=== PATIENT | female | born 1985 | race Caucasian/White ===

== ENCOUNTER 2020-09-03 07:53 | Outpatient (REF) | payer MEDICAID, SELFPAY ==
[2020-09-10 06:16] LABS: HPV mRNA E6/E7 Not Detected (Not Detected)
== END 2020-09-03 07:54 | disposition home or self-care (01) ==
LOC: HO.LNP 07:53
PROVIDERS: Visit Provider Advanced Practice Midwife
DX: Z01.419 Encounter for gynecological examination (general) (routine) without abnormal findings (principal); Z11.51 Encounter for screening for human papillomavirus (HPV); E28.2 Polycystic ovarian syndrome
CPT/HCPCS: 87624; 87625; 88142; 99395

== ENCOUNTER 2020-10-26 08:52 | Outpatient (REF) | payer MEDICAID, SELFPAY ==
[2020-10-26 09:26] LABS: Hematocrit 37.6 % (37-47); Hemoglobin 12.3 g/dl (12.0-16.0); Mean Corpuscular HGB Conc 32.7 g/dl (31.0-35.0); Mean Corpuscular Hemoglobin 29.9 pg (27.0-33.0); Mean Corpuscular Volume 91.3 fL (80-98); Mean Platelet Volume 11.4 fL (9.4-12.3); Platelet Count 282 X10*3/uL (160-400); Red Blood Count 4.12 X10*6/uL (4.20-5.50); Red Cell Distribution Width 13.1 % (11.0-16.0); White Blood Count 9.3 X10*3/uL (4.8-10.8)
[2020-10-26 09:34] LABS: Estimated Average Glucose 114 mg/dL; Hemoglobin A1c % 5.6 %
[2020-10-26 09:43] LABS: Alanine Aminotransferase 21 U/L (0-31); Alkaline Phosphatase 50 U/L (39-117); Anion Gap 12 (12-20); Aspartate Amino Transferase 19 U/L (5-31); Bilirubin Total 0.5 mg/dL (0.0-1.0); Blood Urea Nitrogen 11 mg/dL (9-16); Calcium 8.4 mg/dL (8.4-10.2); Carbon Dioxide 25 mmol/L (22-29); Chloride 104 mmol/L (96-108); Cholesterol 182 mg/dL; Estimated Glomerular Filt Rate > 60; Glucose Fasting 97 mg/dL (60-99); HDL Cholesterol 39 mg/dL; LDL Cholesterol Calculated 99 mg/dl; Potassium 4.3 mmol/l (3.3-5.1); Sodium 137 mmol/L (135-145); Total Protein 7.1 g/dL (6.5-8.0); Triglycerides 220 mg/dL
[2020-10-26 09:50] LABS: Creatinine Urine 172.74 mg/dL; Microalbum/Creatinine Ratio Ur 10.9 ug/mg cr
[2020-10-26 10:03] LABS: TSH reflex Free T4 0.65 mIU/mL (0.32-4.0)
[2020-10-28 20:09] LABS: Insulin Level Total 23.2 uIU/mL
== END 2020-10-26 08:53 | disposition home or self-care (01) ==
LOC: HO.LAB 08:52
PROVIDERS: PCP Nurse Practitioner Family; Visit Provider Nurse Practitioner Family
DX: E16.1 Other hypoglycemia (principal); E28.2 Polycystic ovarian syndrome; I10 Essential (primary) hypertension; J45.30 Mild persistent asthma, uncomplicated; R73.03 Prediabetes
CPT/HCPCS: 36415; 80053; 80061; 82043; 83036; 83525; 84443; 85027

== ENCOUNTER → 2021-10-06 13:18 | Outpatient (BNVA) | payer MEDICAID, SELFPAY | PROVIDERS: PCP Nurse Practitioner Family; Visit Provider Physician Assistant | DX: E66.9 Obesity, unspecified (principal); R73.03 Prediabetes; G35 Multiple sclerosis; G47.30 Sleep apnea, unspecified; R79.89 Other specified abnormal findings of blood chemistry; I10 Essential (primary) hypertension; J45.909 Unspecified asthma, uncomplicated; E28.2 Polycystic ovarian syndrome | CPT/HCPCS: 99202 ==

== ENCOUNTER → 2021-10-16 08:13 | Outpatient (BNVA) | payer MEDICAID, SELFPAY | PROVIDERS: Visit Provider Dietitian, Registered | DX: E66.01 Morbid (severe) obesity due to excess calories (principal) | CPT/HCPCS: 97802 ==

== ENCOUNTER → 2021-11-05 08:09 | Outpatient (BNVA) | payer MEDICAID, SELFPAY | PROVIDERS: Visit Provider Surgery ==

== ENCOUNTER → 2021-11-18 08:14 | Outpatient (BNVA) | payer MEDICAID, SELFPAY | PROVIDERS: PCP Nurse Practitioner Family; Referring Provider Physician Assistant; Visit Provider Dietitian, Registered ==

== ENCOUNTER 2021-11-27 09:04 | Outpatient (REF) | payer MEDICAID, SELFPAY ==
--- NOTE | ~2021-11-27 | US_ITS ---
EXAMINATION: US COMPLETE ABDOMEN WITH LIVER ELASTOGRAPHY CLINICAL INFORMATION: Obesity. COMPARISON: None. TECHNIQUE: Real-time imaging of the abdominal viscera. Noninvasive ultrasound liver fibrosis assessment is performed using Delvis ElastPQ point quantification shear wave elastography (pSWE) with a C5-2 MHz transducer. Multiple elastography samples are obtained. FINDINGS: PANCREAS: Normal. The visualized pancreatic head and body are normal in appearance. The remainder of the pancreas is obscured from visualization by the overlying bowel gas. ABDOMINAL AORTA: The middle and distal aortic segments are normal in caliber. Proximal aorta is obscured from visualization by overlying bowel gas. INFERIOR VENA CAVA: Visualized portions are normal. LIVER: The liver demonstrates diffusely increased echogenicity. No suspicious focal parenchymal lesions or intrahepatic biliary duct dilatation. Normal hepatic capsular contour. The right lobe measures 13 point cm in length. The left lobe measures 12.9 cm in length. Portal flow is hepatopedal Shear wave liver elastography median stiffness is 1.58 m/s (reference: normal median stiffness is 1.3 m/s or less). IQR/median stiffness to assess sampling precision is 0.11 (reference: good quality data set is IQR/median stiffness of 0.15 or less). GALLBLADDER: Normal. The gallbladder is physiologically distended without evidence of stones, sludge, polyps, wall thickening or pericholecystic fluid. COMMON BILE DUCT: Not identified. RIGHT KIDNEY: Normal. No hydronephrosis. No renal calculi or focal parenchymal lesions. The kidney measures 11.2 cm in maximum dimension. LEFT KIDNEY: Normal. No hydronephrosis. No renal calculi or focal parenchymal lesions. The kidney measures 12.1 cm in maximum dimension. SPLEEN: Normal. The spleen measures 9.7 cm in maximum dimension. FREE FLUID: None. US/US abdomen comp w elastography IMPRESSION: 1. Findings suspicious for diffuse hepatic steatosis. 2. No cholelithiasis. 2. Liver elastography: In the absence of other known clinical signs, measurements rule out compensated advanced chronic liver disease. If there are known clinical signs, further testing may be needed for confirmation. REFERENCE: Society of Radiologists in Ultrasound Liver Stiffness Thresholds (2020): LIVER STIFFNESS THRESHOLDS: *Liver Stiffness equal or less than 1.3 m/s: High probability of being normal. *Liver Stiffness less than 1.7 m/s: In the absence of other known clinical signs, rules out compensated advanced chronic liver disease. *Liver Stiffness 1.7-2.1 m/s: Suggestive of compensated advanced chronic liver disease but need further test for confirmation. *Liver Stiffness over 2.1 m/s: Rules in compensated advanced chronic liver disease. *Liver Stiffness over 2.4 m/s: Suggestive of clinically significant portal hypertension. QUALITY OF DATA SET: *IQR/Median value equal or less than 0.15 implies a quality data set. *IQR/Median value over 0.15 implies a poor quality data set. SIGNIFICANT CHANGE FROM PRIOR EXAM: Significant change if liver stiffness measurement is 10% or greater from prior exam. OTHER CONSIDERATIONS: The stage of liver fibrosis may be overestimated in the setting of acute hepatitis, liver inflammation, elevated liver function tests, hepatic vascular congestion, obstructive cholestasis, non-fasting state, and infiltrative diseases such as amyloidosis and lymphoma. In some patients with NAFLD, the liver stiffness thresholds for compensated advanced chronic liver disease may be lower. In causes other than viral hepatitis and NAFLD, liver stiffness thresholds are not well established.
--- NOTE | ~2021-11-27 | XR_ITS ---
EXAMINATION: XR CHEST CLINICAL INFORMATION: Obesity. Unspecified. COMPARISON: None TECHNIQUE: 2 views of the chest were obtained. FINDINGS: Normal appearance of the cardiomediastinal structures. No effusions or pneumothoraces. Lungs clear. Normal pattern of pulmonary vasculature. Oral contrast agent identified within the incidentally visualized stomach, duodenum and jejunum. XR/XR chest 2V IMPRESSION: *No cardiopulmonary abnormalities. Lungs clear. *Partially visualized oral contrast agent within the upper gastrointestinal system.
--- NOTE | ~2021-11-27 | FL_ITS ---
EXAMINATION: FL GI SERIES CLINICAL INFORMATION: Obesity. COMPARISON: None TECHNIQUE: Air-contrast upper GI examination. FINDINGS: There is normal apposition of the vocal cords while saying E . There is normal elevation of the soft palate while saying candy . The patient swallowed thin and thick barium without difficulty. There is no evidence of nasopharyngeal reflux or tracheal aspiration. There is normal esophageal motility without evidence of persistent stricture or mucosal abnormality. No hiatal hernia is seen. There is a patulous GE junction with spontaneous reflux within the distal third of the esophagus identified which clears rapidly. The stomach demonstrates normal distensibility without abnormal mass or ulceration. There was no delay in gastric emptying. The duodenal bulb and sweep appeared unremarkable. FLUOROSCOPY TIME: 1.3 minutes DOSE AREA PRODUCT: 9.741 Gy-cm2 (connolly-centimeter squared) FL/FL upper GI series IMPRESSION: Mild transient gastroesophageal reflux. Otherwise unremarkable air-contrast upper GI examination.
[2021-11-27 10:42] LABS: MANUAL DIFF FLAG NO
[2021-11-27 11:23] LABS: Basophils Absolute Auto 0.1 X10*3/uL (0.0-0.2); Basophils Percent Auto 1.1 % (0-2); Eosinophils Absolute Auto 0.1 X10*3/uL (0.0-0.4); Eosinophils Percent Auto 1.7 % (0-4); Hematocrit 39.2 % (37.0-47.0); Hemoglobin 13.1 g/dl (12.0-16.0); Imm Gran Abs Auto 0.03 X10*3/uL (0.00-0.03); Imm Gran Pct Auto 0.4 % (0.0-0.4); Lymphocytes Absolute Auto 3.1 X10*3/uL (1.2-4.9); Lymphocytes Percent Auto 40.9 % (20-40); Mean Corpuscular HGB Conc 33.4 g/dl (31.0-35.0); Mean Corpuscular Hemoglobin 29.4 pg (27.0-33.0); Mean Corpuscular Volume 87.9 fL (80.0-98.0); Mean Platelet Volume 11.6 fL (9.4-12.3); Monocytes Absolute Auto 0.5 X10*3/uL (0.1-1.2); Monocytes Percent Auto 6.1 % (2-11); Neutrophils Absolute Auto 3.7 x10*3/uL (2.0-8.3); Neutrophils Percent Auto 49.8 % (45-73); Platelet Count 309 X10*3/uL (160-400); Red Blood Count 4.46 X10*6/uL (4.20-5.50); Red Cell Distribution Width 13.4 % (11.0-16.0); White Blood Count 7.5 X10*3/uL (4.8-10.8)
[2021-11-27 11:48] LABS: Estimated Average Glucose 160 mg/dL; Hemoglobin A1c % 7.2 %
[2021-11-27 12:06] LABS: Alanine Aminotransferase 52 U/L (0-31); Albumin Level 4.2 g/dL (3.5-5.0); Alkaline Phosphatase 67 U/L (39-117); Anion Gap 11 (12-20); Aspartate Amino Transferase 43 U/L (5-31); Bilirubin Total 0.5 mg/dL (0.0-1.0); Blood Urea Nitrogen 12 mg/dL (9-16); C Reactive Protein 0.52 mg/dL (< or = 0.50); Calcium 9.3 mg/dL (8.4-10.2); Carbon Dioxide 27 mmol/L (22-29); Chloride 104 mmol/L (96-108); Cholesterol 234 mg/dL; Estimated Glomerular Filt Rate > 60; Glucose Random 150 mg/dL (60-115); HDL Cholesterol 31 mg/dL; Iron 62 mcg/dL (30-160); LDL Cholesterol Calculated 140 mg/dl; Percent Iron Saturation 15 % (15-50); Potassium 4.5 mmol/L (3.3-5.1); Sodium 137 mmol/L (135-145); Total Iron Binding Capacity 403 mcg/dL (228-428); Total Protein 7.9 g/dL (6.5-8.0); Triglycerides 316 mg/dL; Unsaturated Iron Binding 341 ug/dL
[2021-11-27 12:07] LABS: Ferritin 66 ng/mL (10-122); Insulin 39 uU/mL (2-29); TSH reflex Free T4 0.57 uIU/mL (0.32-4.0); Vitamin D 25-OH Total 12.3 ng/mL (>30)
[2021-11-27 12:25] LABS: Folate 11.8 ng/mL (> or = 4.0); Vitamin B12 424 pg/mL (200-900)
[2021-11-28 14:16] LABS: H Pylori Breath Test Positive (Negative)
[2021-12-01 13:31] LABS: Calcium (PTHI) 9.7 mg/dL (8.6-10.2); PTHI 54 pg/mL (14-64)
[2021-12-02 01:20] LABS: Zinc 80 mcg/dL (60-130)
[2021-12-02 16:01] LABS: Vitamin B1 11 nmol/L (8-30)
[2021-12-02 19:17] LABS: Vitamin A 49 mcg/dL (38-98)
== END 2021-11-27 09:05 | disposition home or self-care (01) ==
LOC: HO.US 09:04
PROVIDERS: Physician Assistant; PCP Registered Nurse; Visit Provider Surgery
DX: Z01.818 Encounter for other preprocedural examination (principal); E66.9 Obesity, unspecified
CPT/HCPCS: 36415; 71046; 74240; 76705; 76981; 80053; 80061; 82306; 82607; 82728; 82746; 83013; 83036; 83525; 83540; 83970; 84425; 84443; 84590; 84630; 85025; 86140; 99211

== ENCOUNTER → 2021-12-08 07:30 | Outpatient (BNVA) | payer MEDICAID, SELFPAY | PROVIDERS: Visit Provider Surgery ==

== ENCOUNTER → 2021-12-16 08:07 | Outpatient (BNVA) | payer MEDICAID, SELFPAY | PROVIDERS: Visit Provider Dietitian, Registered | DX: E66.9 Obesity, unspecified (principal); E11.9 Type 2 diabetes mellitus without complications; Z71.3 Dietary counseling and surveillance | CPT/HCPCS: 97803 ==

== ENCOUNTER → 2022-01-07 08:25 | Outpatient (BNVA) | payer MEDICAID, SELFPAY | PROVIDERS: Visit Provider Surgery ==

== ENCOUNTER 2022-01-08 | Outpatient (REF) | payer MEDICAID, SELFPAY ==
[2022-01-13 13:41] LABS: H Pylori Breath Test Negative (Negative)
== END 2022-01-08 00:01 | disposition home or self-care (01) ==
LOC: HO.LNP
PROVIDERS: Visit Provider Physician Assistant Surgical
DX: Z01.818 Encounter for other preprocedural examination (principal)
CPT/HCPCS: 83013

== ENCOUNTER → 2022-01-08 15:28 | Outpatient (BNVA) | payer MEDICAID, SELFPAY | PROVIDERS: Visit Provider Physician Assistant | DX: Z11.0 Encounter for screening for intestinal infectious diseases (principal) | CPT/HCPCS: 99211 ==

== ENCOUNTER → 2022-01-20 08:07 | Outpatient (BNVA) | payer MEDICAID, SELFPAY | PROVIDERS: Referring Provider Physician Assistant; Visit Provider Dietitian, Registered ==

== ENCOUNTER → 2022-01-21 15:09 | Outpatient (REF) | payer MEDICAID, SELFPAY ==
--- NOTE | 2022-01-21 15:15 | ECG_ITS ---
Test Reason : E66.9 Blood Pressure : / mmHG Vent. Rate : 088 BPM Atrial Rate : 088 BPM P-R Int : 156 ms QRS Dur : 076 ms QT Int : 366 ms P-R-T Axes : 038 033 020 degrees QTc Int : 442 ms Normal sinus rhythm Normal ECG No previous ECGs available Referred By: Marisa Mcneal Electronically Signed By:MUKESH ABRAMS
== END ==
LOC: HO.CARD 15:09
PROVIDERS: Visit Provider Physician Assistant
DX: Z01.818 Encounter for other preprocedural examination (principal); E66.9 Obesity, unspecified
CPT/HCPCS: 93005

== ENCOUNTER → 2022-01-27 08:15 | Outpatient (BNVA) | payer MEDICAID, SELFPAY | PROVIDERS: Referring Provider Surgery; Visit Provider Dietitian, Registered | DX: E66.9 Obesity, unspecified (principal); Z68.37 Body mass index [BMI] 37.0-37.9, adult; E11.9 Type 2 diabetes mellitus without complications; Z71.3 Dietary counseling and surveillance | CPT/HCPCS: 97803 ==

== ENCOUNTER → 2022-02-13 08:13 | Outpatient (BNVA) | payer MEDICAID, SELFPAY | PROVIDERS: Visit Provider Surgery | DX: Z13.89 Encounter for screening for other disorder (principal) ==

== ENCOUNTER → 2022-02-20 08:49 | Outpatient (BNVA) | payer MEDICAID, SELFPAY | PROVIDERS: Referring Provider Registered Nurse; Visit Provider Physician Assistant | DX: Z13.89 Encounter for screening for other disorder (principal) ==

== ENCOUNTER → 2022-02-23 08:09 | Outpatient (BNVA) | payer MEDICAID, SELFPAY | PROVIDERS: Visit Provider Surgery | DX: E66.9 Obesity, unspecified (principal); Z68.36 Body mass index [BMI] 36.0-36.9, adult ==

== ENCOUNTER 2022-03-03 16:39 | Inpatient (IN) | payer MEDICAID, SELFPAY ==
[2022-02-20 14:05] VITALS: BMI 36.0
[2022-02-25 06:58] LABS: MANUAL DIFF FLAG NO
[2022-02-25 07:35] LABS: Basophils Absolute Auto 0.1 X10*3/uL (0.0-0.2); Basophils Percent Auto 0.8 % (0-2); Eosinophils Absolute Auto 0.1 X10*3/uL (0.0-0.4); Eosinophils Percent Auto 1.8 % (0-4); Hematocrit 38.2 % (37.0-47.0); Hemoglobin 12.5 g/dl (12.0-16.0); Imm Gran Abs Auto 0.01 X10*3/uL (0.00-0.03); Imm Gran Pct Auto 0.2 % (0.0-0.4); Lymphocytes Absolute Auto 2.4 X10*3/uL (1.2-4.9); Lymphocytes Percent Auto 37.7 % (20-40); Mean Corpuscular HGB Conc 32.7 g/dl (31.0-35.0); Mean Corpuscular Hemoglobin 28.9 pg (27.0-33.0); Mean Corpuscular Volume 88.4 fL (80.0-98.0); Mean Platelet Volume 11.7 fL (9.4-12.3); Monocytes Absolute Auto 0.5 X10*3/uL (0.1-1.2); Neutrophils Absolute Auto 3.2 x10*3/uL (2.0-8.3); Neutrophils Percent Auto 51.5 % (45-73); Platelet Count 254 X10*3/uL (160-400); Red Blood Count 4.32 X10*6/uL (4.20-5.50); White Blood Count 6.3 X10*3/uL (4.8-10.8)
[2022-02-25 07:43] LABS: INTERNATIONAL NORM RATIO 1.1 (0.9-1.1); Prothrombin Time 12.2 SEC (9.9-13.0)
[2022-02-25 07:52] LABS: Estimated Average Glucose 128 mg/dL; Hemoglobin A1c % 6.1 %
[2022-02-25 07:59] LABS: Alanine Aminotransferase 33 U/L (0-31); Albumin Level 4.2 g/dL (3.5-5.0); Alkaline Phosphatase 48 U/L (39-117); Anion Gap 13 (12-20); Aspartate Amino Transferase 26 U/L (5-31); Bilirubin Total 0.8 mg/dL (0.0-1.0); Blood Urea Nitrogen 12 mg/dL (9-16); C Reactive Protein 0.39 mg/dL (< or = 0.50); Calcium 9.5 mg/dL (8.4-10.2); Carbon Dioxide 25 mmol/L (22-29); Chloride 104 mmol/L (96-108); Cholesterol 179 mg/dL; Creatinine Clr Calc Pharmacy 94.4; Estimated Glomerular Filt Rate > 60; Glucose Random 82 mg/dL (60-115); HDL Cholesterol 27 mg/dL; LDL Cholesterol Calculated 114 mg/dl; Potassium 4.5 mmol/L (3.3-5.1); Sodium 137 mmol/L (135-145); Total Protein 7.3 g/dL (6.5-8.0); Triglycerides 192 mg/dL
[2022-02-25 08:21] LABS: Insulin 17 uU/mL (2-29); TSH reflex Free T4 1.34 uIU/mL (0.32-4.0)
--- NOTE | 2022-02-28 00:01 | MHC.SHP ---
Pre-Procedural Eval Section A Date of Service: 02/28/22 The patient is an INPATIENT: Yes The History & Physical has been completed within 30 days and I have reviewed it.: Yes Section B Chief Complaint: obesity Relevant Family History (Specify if Yes): No Relevant Social History: None Present Medications: None Medical History: No relevant PMH History of Previous Operations: No relevant previous surgery Allergies: Allergies Allergy/AdvReac Type Severity Reaction Status Date / Time No Known Allergies Allergy Verified 02/23/22 08:15 [No Known Allergies*] Review of Systems Sugical H&P ROS: Negative: Constitution, Cardiovascular, Respiratory, Neurological, Psychiatric, Hem-Onc, Allergic/Immunologic, Gastrointestinal, Genitourinary, Musculoskeletal, Integumentary, Endocrine and Eyes/Ears/Nose/Throat Exam Surgical H&P Exam: Normal: HEENT, Normal: Heart, Normal: Lungs, Normal: Extremities, Normal: Abdomen, Normal: Skin and Normal: Neurological Plan Diagnosis/Plan: Unchanged I have reviewed the history and physical and performed a pertinent physical examination on my patient. No changes have occurred unless specified.
--- NOTE | 2022-03-02 08:25 | P.CONAN_ITS ---
Documented by User: Olive Dawn NP 03/02/22 08:27 HPI - Anesthesia Eval Consult details Narrative: 36yo F for Gastrectomy Sleeve,EGD,possible diaphragmatic hernia,possible ventral hernia,possible open PMFSH Active Problems Active Problems: All Active Problems (Updated 02/23/22 @ 08:07 by Ricardo Aaron MD) BMI 36.0-36.9,adult (Acute) Prediabetes (Acute) Well woman exam with routine gynecological exam (Acute) Elevated testosterone level (Acute) Sleep apnea with use of continuous positive airway pressure (CPAP) (Acute) Multiple sclerosis (Acute) Obesity (Acute) Pre-op evaluation (Acute) BMI 39.0-39.9,adult (Acute) H. pylori infection (Acute) Constipation (Acute) BMI 37.0-37.9, adult (Acute) DJD (degenerative joint disease) (Acute) Depression (Acute) GERD (gastroesophageal reflux disease) (Acute) Hyperlipidemia (Acute) Non-insulin dependent type 2 diabetes mellitus (Acute) Hypertension (Acute) Asthma (Acute) PCOS (polycystic ovarian syndrome) (Acute) Secondary amenorrhea (Acute) Past Medical History Medical History (Updated 02/23/22 @ 08:07 by Ricardo Aaron MD) Abnormal Pap smear of cervix Asthma COVID-19 vaccine series completed Depression DJD (degenerative joint disease) GERD (gastroesophageal reflux disease) Hyperlipidemia Hypertension Migraines Multiple sclerosis Non-insulin dependent type 2 diabetes mellitus PCOS (polycystic ovarian syndrome) Secondary amenorrhea Sleep apnea Family History Family History (Updated 10/06/21 @ 13:36 by PROSPER Butt) Sister Stomach cancer Uterine cancer Mother Diabetes Hypertension Obesity Father No problems noted. Brother No problems noted. Brother Sleep apnea Sister No problems noted. Daughter Asthma Surgical History Surgical History (Updated 10/06/21 @ 14:21 by Marisa Mcneal PA-C) H/O laparoscopy Hx of section Social History Social History (Updated 10/06/21 @ 13:37 by PROSPER Butt) Household Members Other:: daughter (age 18) Are you a primary healthcare facility administrator to a significant other at home: No Do you presently have visiting nurse or other home services: No Alcohol intake: current Alcohol intake frequency: holidays/special occasions only Patient Tobacco Use Status: Never used Tobacco Gender identity: Female Meds Allergies Allergy/AdvReac Type Severity Reaction Status Date / Time No Known Allergies Allergy Verified 02/23/22 08:15 [No Known Allergies*] Home Medications Medication Instructions Recorded Confirmed Last Taken Type ibuprofen 800 mg tablet 800 mg PO Q8H 09/03/20 03/03/22 2 Weeks Ago History ~02/17/22 labetalol 100 mg tablet 100 mg PO BID 09/03/20 02/23/22 Unknown History metformin 500 mg tablet,extended 500 mg PO BID 09/03/20 02/23/22 Unknown History release 24 hr spironolactone 50 mg tablet 50 mg PO DAILY 10/06/21 02/23/22 Unknown History albuterol sulfate 90 mcg/actuation 2 puff INHALATION Q6H PRN 11/05/21 02/23/22 Unknown History aerosol inhaler dimethyl fumarate 120 mg 120 mg PO BID 11/05/21 02/23/22 Unknown History capsule,delayed release (Tecfidera) escitalopram oxalate 10 mg tablet 10 mg PO DAILY 11/05/21 02/23/22 Unknown History (Lexapro) hydroxyzine HCl 25 mg tablet 25 mg PO BEDTIME 11/05/21 02/23/22 Unknown History Exam Exam Date and Time: March 02, 2022 0825 Height,Weight and Vital Signs: Height 5 ft 1.5 in Weight 87.997 kg Pertinent Lab Results Pertinent Lab Results: Laboratory Tests 02/25/22 02/25/22 02/25/22 06:50 06:57 06:57 WBC 6.3 RBC 4.32 Hgb 12.5 Hct 38.2 MCV 88.4 MCH 28.9 MCHC 32.7 RDW 13.0 Plt Count 254 MPV 11.7 Immature Gran % (Auto) 0.2 Neut % (Auto) 51.5 Lymph % (Auto) 37.7 [place] % (Auto) 8.0 Eos % (Auto) 1.8 Baso % (Auto) 0.8 Lymph # (Auto) 2.4 [place] # (Auto) 0.5 Eos # (Auto) 0.1 Baso # (Auto) 0.1 Abs Immat Gran (auto) 0.01 Absolute Neuts (auto) 3.2 Absolute Nucleated RBC 0.000 Nucleated RBC % (auto) 0.0 PT 12.2 INR 1.1 APTT 40.0 H Sodium Potassium Chloride Carbon Dioxide Anion Gap BUN Creatinine Estim Creat Clear Calc Estimated GFR Random Glucose Estimat Average Glucose Hemoglobin A1c % Insulin Level Calcium Total Bilirubin AST ALT Alkaline Phosphatase C-Reactive Protein Total Protein Albumin Triglycerides Cholesterol LDL Cholesterol, Calc HDL Cholesterol TSH Blood Type A Positive Antibody Screen NEGATIVE 02/25/22 02/25/22 06:57 06:57 WBC RBC Hgb Hct MCV MCH MCHC RDW Plt Count MPV Immature Gran % (Auto) Neut % (Auto) Lymph % (Auto) [place] % (Auto) Eos % (Auto) Baso % (Auto) Lymph # (Auto) [place] # (Auto) Eos # (Auto) Baso # (Auto) Abs Immat Gran (auto) Absolute Neuts (auto) Absolute Nucleated RBC Nucleated RBC % (auto) PT INR APTT Sodium 137 Potassium 4.5 Chloride 104 Carbon Dioxide 25 Anion Gap 13 BUN 12 Creatinine 0.83 Estim Creat Clear Calc 94.4 Estimated GFR > 60 Random Glucose 82 Estimat Average Glucose 128 Hemoglobin A1c % 6.1 Insulin Level 17 Calcium 9.5 Total Bilirubin 0.8 AST 26 ALT 33 H Alkaline Phosphatase 48 D C-Reactive Protein 0.39 Total Protein 7.3 Albumin 4.2 Triglycerides 192 Cholesterol 179 D LDL Cholesterol, Calc 114 HDL Cholesterol 27 TSH 1.34 Blood Type Antibody Screen Narrative Narrative: EKG 12/2021 Vent. Rate : 088 BPM ? ? Atrial Rate : 088 BPM ?? P-R Int : 156 ms? QRS Dur : 076 ms ? ? QT Int : 366 ms ? ? ? P-R-T Axes : 038 033 020 degrees ?? QTc Int : 442 ms ? Normal sinus rhythm Normal ECG No previous ECGs available Assessment and Plan Assessment Anesthesia Assessment: Chart Reviewed Documented by User: Lawrence Delatorre MD 03/03/22 14:12 [facility] Past Medical History Medical History (Updated 02/23/22 @ 08:07 by Ricardo Aaron MD) Abnormal Pap smear of cervix Asthma COVID-19 vaccine series completed Depression DJD (degenerative joint disease) GERD (gastroesophageal reflux disease) Hyperlipidemia Hypertension Migraines Multiple sclerosis Non-insulin dependent type 2 diabetes mellitus PCOS (polycystic ovarian syndrome) Secondary amenorrhea Sleep apnea Family History Family History (Updated 10/06/21 @ 13:36 by Sesar Schroeder Reina) Sister Stomach cancer Uterine cancer Mother Diabetes Hypertension Obesity Father No problems noted. Brother No problems noted. Brother Sleep apnea Sister No problems noted. Daughter Asthma Family history of problems with anesthesia: No Surgical History Surgical History (Updated 10/06/21 @ 14:21 by Marisa Mcneal PA-C) H/O laparoscopy Hx of section History of Problems with Anesthesia: No Social History Social History (Updated 10/06/21 @ 13:37 by Sesar Schroeder Reina) Household Members Other:: daughter (age 18) Are you a primary healthcare facility administrator to a significant other at home: No Do you presently have visiting nurse or other home services: No Alcohol intake: current Alcohol intake frequency: holidays/special occasions only Patient Tobacco Use Status: Never used Tobacco Gender identity: Female Meds Allergies Allergy/AdvReac Type Severity Reaction Status Date / Time No Known Allergies Allergy Verified 02/23/22 08:15 [No Known Allergies*] Home Medications Medication Instructions Recorded Confirmed Last Taken Type ibuprofen 800 mg tablet 800 mg PO Q8H 09/03/20 03/03/22 2 Weeks Ago History ~02/17/22 labetalol 100 mg tablet 100 mg PO BID 09/03/20 02/23/22 Unknown History metformin 500 mg tablet,extended 500 mg PO BID 09/03/20 02/23/22 Unknown History release 24 hr spironolactone 50 mg tablet 50 mg PO DAILY 10/06/21 02/23/22 Unknown History albuterol sulfate 90 mcg/actuation 2 puff INHALATION Q6H PRN 11/05/21 02/23/22 Unknown History aerosol inhaler dimethyl fumarate 120 mg 120 mg PO BID 11/05/21 02/23/22 Unknown History capsule,delayed release (Tecfidera) escitalopram oxalate 10 mg tablet 10 mg PO DAILY 11/05/21 02/23/22 Unknown History (Lexapro) hydroxyzine HCl 25 mg tablet 25 mg PO BEDTIME 11/05/21 02/23/22 Unknown History Exam Airway Mallampati Class: II TM Dist: >3cm Neck ROM: Full Loose/Missing/Broken Teeth: No Heart: [id number] Lungs: cta b/l Assessment and Plan Assessment Anesthesia Assessment: Anesthesia Plan Discussed Final Anesthetic Review Family History of Problems with Anesthesia: No History of Problems with Anesthesia: No NPO: Yes ASA Class: III Final Preanesthetic Review: No Changes in Pt Med Stat, Meds/Allgs Chart Reviewed, Consent Obtained/Reviewed and Anes Risks/Benef Reviewed Patient Risk: Intermediate Procedure Risk: Intermediate Assessment/Block/Sedation in SS: Assess/Block/Sedation-SS Anesthetic Plan Anesthetic Plan: GA and Agree w/ Assess. and Plan Disposition: Standard PACU
[2022-03-02 14:33] LABS: COVID-19 Test Negative (Negative); IDNOW Serial# 16C4AD1C
[2022-03-03] VITALS (14 sets, daily range): BP systolic 154–180; BP diastolic 83–103; PULSE 87–103; RESP 14–20; TEMP 36.4–37; O2SAT 98–100
[2022-03-03 12:30] LABS: UPreg QC Valid YES; Urine Pregnancy NEGATIVE (NEGATIVE)
[2022-03-03] MEDS: Lactated Ringers 1,000 ML 100 ML IVCONT ×2 (12:30→20:09)
[2022-03-03] MEDS: Lactated Ringers 1,000 ML 999 ML IV (12:30)
--- NOTE | 2022-03-03 13:13 | P.BOP_ITS ---
Brief Operative Note Date of Service: 03/03/22 Pre-op diagnosis: Severe obesity and comorbidities (see below) Post-op diagnosis: same (& abdominal adhesions) Procedure: INITIAL PATIENT BMI ON PRESENTATION AT OUR OFFICE: 39 kg/m2 LAST BMI BEFORE SURGERY: 37.6 kg/m2 COMORBIDITIES: sleep apnea on CPAP, asthma, non-insulin dependent diabetes, hypertension, DJD, PCOS, multiple sclerosis, GERD, depression ?The patient presented to the Weight Management Program with significant obesity that was negatively impacting the patient's comorbidities as listed above.? The program is a phased program with a special focus on preoperative medical weight management to promote substantial weight loss and prepare the patients for the second phase of the program: bariatric surgery. The patient participated in an intensive weekly lifestyle ?intervention and exercise program during which the patient ?has lost between the initial office visit and the last preoperative visit 13.2lbs, or 6.29% of initial actual body weight. It was deemed appropriate for the patient to now have bariatric surgery. In light of the current Covid-19 pandemic and the well documented strong association of obesity and increased risk of worse outcomes if infected with Covid-19 (REFERENCES: https://pubmed.ncbi.nlm.nih.gov/22632051/ ,? https://pubmed.ncbi.nlm.nih.gov/96133699/ ), any delay in undergoing bariatric surgery may lead to the patient's worsening health condition and increased?risk of more severe Covid-19 disease if infected. In addition a recent?study from [facility] published in [employer] on 11/24/2021 (f [email or web address]) found that, among patients with obesity, substantial weight loss achieved with surgery was associated with improved outcomes of COVID-19 infection. The findings suggest that obesity can be a modifiable risk factor for the severity of COVID-19 infection. In addition, the patient met the BMI-criteria for bariatric surgery based on the BMI on initial presentation. The patient should not be penalized for achieving such weight loss because ?it is not sustainable long-term without surgical intervention and it was achieved in preparation for bariatric surgery ?under my direction and based on my published research ([email or web address] and? https://www.soard.org/article/[email or web address](28)65722-X/pdf ) ?that a 10% preoperative weight loss improves long-term weight loss after surgery and reduces perioperative complications.? Insurance carriers such as [facility] have endorsed my recommendations ?and have included in their policies criteria to include a 10% preoperative weight loss requirement. PROCEDURE: Esophago-gastroscopy, laparoscopic repair of incarcerated diaphragmatic hernia, laparoscopic lysis of adhesions, laparoscopic sleeve gastrectomy and laparoscopic gastropexy INDICATIONS: This is a 36 year-old female who was electively scheduled for laparoscopic, possibly open sleeve gastrectomy. The risks and complications of the procedure were discussed with the patient in advance, particularly the possibility of ; pulmonary embolism; staple line leak; bleeding; GERD; cardiac, pulmonary, or renal complications; as well as long-term problems such as insufficient weight loss, vitamin deficiency, strictures, or ulcers. The patient understood all the risks, and was in agreement to proceed with surgery. DESCRIPTION OF PROCEDURE: After informed consent was obtained from the patient, the patient was given preoperative antibiotics, and was transferred to the operating room. After successful induction of general anesthesia, pneumatic compression devices were placed on both lower extremities. An upper endoscopy was performed next. The oropharynx and esophagus appeared to be within normal limits. There was no diaphragmatic hernia present consistent with the findings of the preoperative upper GI. The stomach was entered. Then after all fluid and air were suctioned and the stomach was fully decompressed, the scope was withdrawn and secured in the mid esophagus. The patient was then prepped and draped in the usual sterile manner, and abdominal access was established at the right upper quadrant with the Antonia technique. A 12 mm blunt port was inserted, and the abdomen was insufflated with CO2 to a pressure of 15 mmHg. Under direct visualization, additional ports were placed, specifically two 5 mm Versi-step ports to the left upper quadrant, and a 5 mm Versi-Step port to the right upper quadrant. 1% lidocaine plain was used to infiltrate all port sites as well as all fascia defects. There were adhesions in the abdomen from previous involving the omentum and the left anterior abdominal wall. Those were lysed completely with the ultrasonic device. Following that, the patient was placed in a steep reverse Trendelenburg position. An additional 5 mm port was placed to the right flank for the Mediflex retractor that was used to retract the left lobe of the liver. The gastro-esophageal fat pad was opened with the ultrasonic device (Thunderbeat, Olympus) and the anterior esophagus and hiatus were exposed. The angle of His was opened with the ultrasonic device the fundus of the stomach from any diaphragmatic and splenic attachments. I then opened the gastrocolic ligament between the transverse colon and the greater curvature of the stomach with the ultrasonic device to enter the lesser sac and facilitate the ligation of the short gastric vessels. I started at a mid-point along the greater curvature and using the Thunderbeat, all short gastric vessels were divided all the way to the angle of His until the left mildred was completely dissected at its entirety. I then divided the gastro-colic ligament distally to a distance of about 3-4 cm proximal to the pylorus. The stomach was then divided transversely with one Endo JIMMIE-45 purple, one JIMMIE- 45 orange loads and four JIMMIE-6s0 articulating orange loads using the AEON stapler and loads. Every effort was made that the gastric sleeve had a tubular shape and an even caliber throughout. Once the sleeve resection was completed, the staple line of the gastric sleeve was reinforced with Hemoclips. The resected stomach was retrieved without difficulty from the Antonia port. A gastropexy was then performed in order to prevent postoperative GERD and partial gastric volvulus. Several interrupted 2.0 Surgidac sutures were placed between the sleeve's staple line and the previously divided greater omentum and gastro-colic ligament using the Endo-Stitch device. ?An upper endoscopy was performed. There was no narrowing at the GE junction. The scope was easily advanced all the way to the pylorus which was clearly visualized. There was no narrowing anywhere and the sleeve's caliber was even throughout. The sleeve's staple line was inspected and there was no evidence of ischemia, bleeding or dehiscence. At that point the gastroscope was withdrawn from the patient?s mouth while we were decompressing the bowel and the stomach from any remaining air. I looked into the lesser sac to see how the sleeve was situating and it was situating well. There was no bleeding from the staple line, spleen, or short gastric vessels. The Mediflex retractor was removed, and the undersurface of the liver was inspected and there was no bleeding. The patient was placed in supine position. I closed the fascial defect of the 12 mm port site with a figure of eight #1 Polysorb suture. Then 100 cc 0.25 % Marcaine plain with 10 mg of Dexamethasone were used to infiltrate the fascial closure as well as all skin incisions. At this point, the abdomen was deflated, all ports were removed under direct vision, and no bleeding was noted from any of the port sites. The skin incisions were irrigated with saline and were closed with 4-0 absorbable monofilament sutures. Steri-Strips and OpSites were used to cover all incisions. The patient was extubated and was transferred in stable condition to the recovery room for further care. I was present and performed all walden parts of the procedure. Ms. Mcneal was the assistant track coach. There were no residents to assist with this case. Louis Aaron MD, PhD, FACS Surgeon: Ricardo Aaron MD Anesthesia: GETA, local and other (TAP block) Was an Projection Camera Operator used for this Procedure?: No Projection Camera Operator: Marisa Mcneal Estimated blood loss (mL): 10 IV fluids (mL): 3,000 Urine output (mL): 0 Pathology: other (Stomach) Condition: stable Disposition: PACU
--- NOTE | 2022-03-03 13:17 | PM.PNGS ---
Subjective Subjective Date of Service: 03/04/22 Interval history: Patient has mild incisional pain, but was able to ambulate and use the incentive spirometer. She is tolerating phase 1 bariatric diet Physical Exam Vital Signs: Vital Signs: Last Vital Signs Temp 97.5 F 03/03/22 11:42 Pulse 87 03/03/22 11:42 Resp 18 03/03/22 11:42 BP 154/83 H 03/03/22 11:42 Pulse Ox 98 03/03/22 11:42 BMI result Body Mass Index 36.0 GI: Inspection: Yes normal to inspection, Yes incision (clean, dry and intact) and Yes obesity Extrem: Right lower extremity: normal to inspection (no calf tenderness) Left lower extremity: normal to inspection (no calf tenderness) Objective Data Active Medications Lactated Ringer's (Lr) 1,000 mls @ 100 mls/hr IVCONT .Q10H RIGO Last Admin: 03/03/22 12:30 Dose: 100 mls/hr Documented by: EMERSON Labs CBC & Chem 7: 03/04/22 05:53 03/04/22 05:53 Labs: Laboratory Results - last 24 hr 03/02/22 03/03/22 14:10 11:35 Urine Test NEGATIVE COVID-19 (ROSEANNE) Negative COVID-19 Clin Com See Note Procedures Date of Service Date of Service: 03/04/22 Progress Note: A&P Assessment and plan (1) Obesity: Status: Acute Assessment and Plan: s/p laparoscopic sleeve gastrectomy, lysis of adhesions and gastropexy Doing well Check am labs. If OK, will discharge home (2) BMI 37.0-37.9, adult: Status: Acute (3) PCOS (polycystic ovarian syndrome): Status: Acute (4) Asthma: Status: Acute (5) Hypertension: Status: Acute (6) Non-insulin dependent type 2 diabetes mellitus: Status: Acute (7) Hyperlipidemia: Status: Acute (8) GERD (gastroesophageal reflux disease): Status: Acute (9) Depression: Status: Acute (10) DJD (degenerative joint disease): Status: Acute (11) Multiple sclerosis: Status: Acute (12) Sleep apnea with use of continuous positive airway pressure (CPAP): Status: Acute (13) S/P laparoscopic sleeve gastrectomy: Status: Acute Fall Risk Details Current Medications: Current Medications Lactated Ringer's (Lr) 1,000 mls @ 100 mls/hr IVCONT .Q10H RIGO Last Admin: 03/03/22 12:30 Dose: 100 mls/hr Documented by: Time Spent With Patient Time: Total time spent is greater than 50% in coordination of care (as documented) at patient's floor/unit and/or counseling patient: Quality Stroke Does the patient have a stroke diagnosis?: No VTE Prior VTE?: No VTE Risk Level:: Surgical - moderate VTE Device Contraindication: N/A - Device Ordered VTE Drug Contraindication: Treatment Not Indicated
[2022-03-03] MEDS: ceFAZolin Sodium/Dextrose,Iso 2 GM/50 ML PIGGYBACK IV ×2 (13:30→19:11)
[2022-03-03] MEDS: Famotidine/PF 20 MG/2 ML VIAL IVPUSH ×2 (16:40→20:15)
[2022-03-03] MEDS: HYDROmorphone HCl 0.5 MG/0.5 ML SYRINGE IVPUSH ×2 (16:49→17:14)
[2022-03-03 16:59] LABS: Hematocrit 37.9 % (37.0-47.0); Hemoglobin 12.4 g/dl (12.0-16.0)
[2022-03-03 17:14] LABS: Anion Gap 14 (12-20); Blood Urea Nitrogen 6 mg/dL (9-16); Calcium 9.1 mg/dL (8.4-10.2); Carbon Dioxide 22 mmol/L (22-29); Chloride 104 mmol/L (96-108); Creatinine Clr Calc Pharmacy 85.2; Estimated Glomerular Filt Rate > 60; Glucose Random 171 mg/dL (60-115); Potassium 4.3 mmol/L (3.3-5.1); Sodium 136 mmol/L (135-145)
[2022-03-03] MEDS: ondansetron HCL 4 MG/2 ML VIAL IVPUSH (20:14)
[2022-03-03] MEDS: Labetalol HCL 100 MG TABLET PO (20:15)
[2022-03-04] VITALS: BP 140/78; PULSE 91; RESP 18; TEMP 36.3; O2SAT 96
[2022-03-04] MEDS: HYDROmorphone HCl 0.5 MG/0.5 ML SYRINGE 0.25 MG IVPUSH (00:37)
[2022-03-04 04:00] VITALS: BP 131/79; PULSE 90; RESP 18; TEMP 36.5; O2SAT 97
[2022-03-04] MEDS: ondansetron HCL 4 MG/2 ML VIAL IVPUSH (04:59)
[2022-03-04] MEDS: Lactated Ringers 1,000 ML 100 ML IVCONT (05:25)
[2022-03-04 06:16] LABS: MANUAL DIFF FLAG NO
[2022-03-04 06:31] LABS: Hematocrit 34.7 % (37.0-47.0); Hemoglobin 11.5 g/dl (12.0-16.0); Imm Gran Abs Auto 0.04 X10*3/uL (0.00-0.03); Imm Gran Pct Auto 0.4 % (0.0-0.4); Lymphocytes Absolute Auto 1.7 X10*3/uL (1.2-4.9); Lymphocytes Percent Auto 16.6 % (20-40); Mean Corpuscular HGB Conc 33.1 g/dl (31.0-35.0); Mean Corpuscular Hemoglobin 28.7 pg (27.0-33.0); Mean Corpuscular Volume 86.5 fL (80.0-98.0); Monocytes Absolute Auto 0.3 X10*3/uL (0.1-1.2); Monocytes Percent Auto 2.8 % (2-11); Neutrophils Absolute Auto 8.1 x10*3/uL (2.0-8.3); Neutrophils Percent Auto 80.2 % (45-73); Platelet Count 249 X10*3/uL (160-400); Red Blood Count 4.01 X10*6/uL (4.20-5.50); Red Cell Distribution Width 12.8 % (11.0-16.0); White Blood Count 10.1 X10*3/uL (4.8-10.8)
[2022-03-04 06:35] LABS: Anion Gap 15 (12-20); Blood Urea Nitrogen 5 mg/dL (9-16); Calcium 9.2 mg/dL (8.4-10.2); Carbon Dioxide 19 mmol/L (22-29); Chloride 104 mmol/L (96-108); Creatinine Clr Calc Pharmacy 91.1; Estimated Glomerular Filt Rate > 60; Glucose Random 190 mg/dL (60-115); Potassium 4.7 mmol/L (3.3-5.1); Sodium 133 mmol/L (135-145)
[2022-03-04 06:35] LABS: Glucose, Whole Blood 91 mg/dL (60-115)
[2022-03-04 07:33] VITALS: BP 137/70; PULSE 80; RESP 19; TEMP 36.3; O2SAT 97
[2022-03-04] MEDS: Famotidine/PF 20 MG/2 ML VIAL IVPUSH (08:08)
[2022-03-04] MEDS: Labetalol HCL 100 MG TABLET PO (08:08)
--- NOTE | 2022-03-04 08:45 | MHC.CM.PN ---
Patient has been medically cleared for dc to home today, self care.Patient lives in a condo with her and adult Daughter and she is functionally independent and working. PCP is Dr. Bull and Patient has received Moderna/Covid vax X3.
--- NOTE | 2022-03-04 08:51 | PM.DS ---
DS: Providers Provider Date of Service: 03/04/22 Date of admission: 03/03/22 16:39 Primary care physician: MARYCRUZ Bowman DS: Diagnosis Discharge Diagnosis (1) Obesity: Status: Acute (2) BMI 37.0-37.9, adult: Status: Acute (3) PCOS (polycystic ovarian syndrome): Status: Acute (4) Asthma: Status: Acute (5) Hypertension: Status: Acute (6) Non-insulin dependent type 2 diabetes mellitus: Status: Acute (7) Hyperlipidemia: Status: Acute (8) GERD (gastroesophageal reflux disease): Status: Acute (9) Depression: Status: Acute (10) DJD (degenerative joint disease): Status: Acute (11) Multiple sclerosis: Status: Acute (12) Sleep apnea with use of continuous positive airway pressure (CPAP): Status: Acute (13) S/P laparoscopic sleeve gastrectomy: Status: Acute DS: Summary Hospital Course Hospital Course: ADMITTING DIAGNOSIS: morbid obesity, HTN, DM, Hyperlipidemia, RHEA, PCOS, migraines, MS DISCHARGE DIAGNOSIS: same, s/p laparoscopic sleeve gastrectomy PAST SURGICAL HISTORY: section PROCEDURE: upper endoscopy, laparoscopic sleeve gastrectomy DISCHARGE SUMMARY: History of Present Illness: The patient is a 36 year-old woman with a BMI of 39.0 kg/m2 and associated co-morbidities as described above. The patient had extensive work-up,lost 13.6 lbs preoperatively and was electively scheduled for laparoscopic, possible open sleeve gastrectomy and gastropexy. Risks and complications of the surgery were discussed with the patient in advance, particularly the possibility of , pulmonary embolism, anastomotic leak, bleeding, bowel injury, GERD, cardiac, renal or pulmonary complications. The patient understood all the risks and was in agreement with the surgical plan. Hospital Course: The patient underwent an uneventful laparoscopic sleeve gastrectomy with gastropexy on the day of admission. Postoperatively, the patient was transferred to the surgical floor. The patient received IV Acetaminophen and IV dilaudid for pain control. Patient was started on bariatric phase 1 diet POD #0. On postoperative day one, the patient was feeling well without nausea, vomiting, fevers, or tachycardia. The patient had some mild incisional pain and the abdomen was soft. On the morning of postoperative day one, the patient was continued on 1 ounce of water or ice every half hour. During the day, the patient did fairly well, having some incisional pain, but able to ambulate adequately and to tolerate liquids well. Since the patient is doing well, we decided that the patient was ready to be discharged. The patient was given instructions to follow-up with me next week and to call my office for any fever over 101, persistent abdominal pain, nausea, vomiting, GERD, symptoms of DVT such as calf tenderness, or leg swelling, or pulmonary embolism such as chest pain or shortness of breath. The patient was also instructed to drink 40-60 ounces of liquids per day using the 1-ounce cups. The patient had been given prescriptions for Tylenol for pain, Zofran prn for nausea, and pantoprazole and carafate previously. The patient was encouraged to ambulate and use the incentive spirometer. The patient was allowed to shower, but no baths, and encouraged to stay active at home. All of these instructions were given to the patient personally. All questions were answered and the patient understood all instructions, the instructions were also given to the patient in print. Time Spent with Patient Time attestation: Total time spent providing and/or coordinating discharge services: Discharge coordination time: Less than 30 minutes Quality: Safe Use of Opioids Does Pt have an Active Cancer Diagnosis on the Problem List?: No Quality: Stroke Does the patient have a stroke diagnosis?: No Physical Exam Vital Signs: Vital Signs: Last Vital Signs Temp 97.4 F 03/04/22 07:33 Pulse 80 03/04/22 07:33 Resp 19 03/04/22 07:33 BP 137/70 03/04/22 07:33 Pulse Ox 97 03/04/22 07:33 BMI result Body Mass Index 36.0 DS: Data Data Completed and Pending Pending studies at discharge: Pending at discharge 03/03/22 14:50 Surgical [PTH] Routine Labs on day of discharge: Laboratory Results - last 24 hr 03/03/22 03/03/22 03/03/22 11:35 12:05 16:47 WBC RBC Hgb 12.4 Hct 37.9 MCV MCH MCHC RDW Plt Count MPV Immature Gran % (Auto) Neut % (Auto) Lymph % (Auto) [place] % (Auto) Eos % (Auto) Baso % (Auto) Lymph # (Auto) [place] # (Auto) Eos # (Auto) Baso # (Auto) Abs Immat Gran (auto) Absolute Neuts (auto) Absolute Nucleated RBC Nucleated RBC % (auto) Sodium Potassium Chloride Carbon Dioxide Anion Gap BUN Creatinine Estim Creat Clear Calc Estimated GFR POC Glucose 91 Random Glucose Calcium Urine Test NEGATIVE 03/03/22 03/04/22 03/04/22 16:47 05:53 05:53 WBC 10.1 RBC 4.01 L Hgb 11.5 L Hct 34.7 L MCV 86.5 MCH 28.7 MCHC 33.1 RDW 12.8 Plt Count 249 MPV 12.0 Immature Gran % (Auto) 0.4 Neut % (Auto) 80.2 H Lymph % (Auto) 16.6 L [place] % (Auto) 2.8 Eos % (Auto) 0.0 Baso % (Auto) 0.0 Lymph # (Auto) 1.7 [place] # (Auto) 0.3 Eos # (Auto) 0.0 Baso # (Auto) 0.0 Abs Immat Gran (auto) 0.04 H Absolute Neuts (auto) 8.1 Absolute Nucleated RBC 0.000 Nucleated RBC % (auto) 0.0 Sodium 136 133 L Potassium 4.3 4.7 Chloride 104 104 Carbon Dioxide 22 19 L Anion Gap 14 15 BUN 6 L 5 L Creatinine 0.92 0.86 Estim Creat Clear Calc 85.2 91.1 Estimated GFR > 60 > 60 POC Glucose Random Glucose 171 H 190 H Calcium 9.1 9.2 Urine Test Discharge Plan Discharge Patient Disposition: Home, Self-Care Discharge Diagnosis: s/p sleeve gastrectomy Referrals: Lisa Bull, MARYCRUZ [Primary Care Provider] - 1 Week Discharge Medications: Continued fluticasone propionate 50 mcg/actuation spray,suspension 1 - 2 spray intranasal DAILY PRN (Reason: Allergy Symptoms) 0RF escitalopram oxalate 20 mg tablet 1 tab DAILY 0RF labetalol 100 mg tablet 100 mg PO BID 0RF spironolactone 50 mg tablet 50 mg PO DAILY 0RF albuterol sulfate 90 mcg/actuation HFA aerosol inhaler 2 puff inhalation Q6H PRN (Reason: Wheezing) 0RF hydroxyzine HCl 25 mg tablet 25 mg PO TID PRN (Reason: Anxiety) 0RF pantoprazole 40 mg tablet,delayed release (DR/EC) 40 mg PO DAILY Qty: 30 2RF ondansetron HCl 4 mg tablet 4 mg PO Q12H Qty: 20 0RF Held norethindrone ac-eth estradiol [June (21)] 1.5-30 mg-mcg tablet 1 tab DAILY 0RF Hold Instructions: Discuss when to restart with Dr Aaron dimethyl fumarate [Tecfidera] 240 mg capsule,delayed release(DR/EC) 1 cap PO BID 0RF Hold Instructions: Discuss restart with Dr Aaron Discontinued cyanocobalamin (vitamin B-12) 500 mcg tablet 500 mcg PO DAILY Qty: 30 6RF cholecalciferol (vitamin D3) 50 mcg (2,000 unit) capsule 50 mcg PO DAILY Qty: 30 6RF sennosides [senna] 8.6 mg tablet 2 tab PO DAILY PRN (Reason: constipation) 0RF aspirin 81 mg tablet,delayed release (DR/EC) 1 tab DAILY 0RF ibuprofen 800 mg tablet 800 mg PO Q8H 0RF docusate sodium [Colace] 100 mg capsule 100 mg PO DAILY Qty: 30 2RF Discharge Orders: Discharge Order (Routine); Ordered 03/04/22 Ordered By: Ricardo Aaron Diet: other Activity on Discharge: No heavy lifting Stand Alone Forms: Patient Portal Discharge page Care Plan Goals: weight loss Health Concerns: obesity Plan of Treatment: No tub baths, sex or returning to work until discussed at first post op appointment. No exercise, alcohol, tobacco or illegal drug use. Continue to use incentive spirometer hourly while awake. Walk in home for 5- 10 minutes every 2 hours during the first week. Continue phase 1 diet today and start phase 2 diet tomorrow morning. Follow all instructions in the bariatric handbook and call with any questions. 1. Please call your doctor or come back to the emergency room should any new symptoms arise. 2. You will receive a courtesy call from [facility] 24-48 hours after discharge. 3. Activity: abstain from alcohol, practice limited stair climbing, no bending, no driving, no exercise, no illicit substances, no lifting, no sex, no tub bath, no work. 4. Diet: continue as discussed with Dr. Aaron. 5. Dressing Change/Wound Care: Do not change or remove surgical dressings unless they are wet or soiled. 6. Call your doctor if: - Your temperature exceeds 101.5 F - You experience excessive pain or swelling - You have an unexpected reaction to medication - You have excessive bleeding - You experience continued vomiting/nausea - Your incision begins to separate - Your incision shows signs of infection such as increased redness, swelling, excessive pain, heat, or drainage (light blood or clear fluid is normal) 7. General instructions: No lifting greater than 5 lbs for the next 4 weeks[address] driving within 24 hours of taking narcotic pain medications. If you do not move your bowels in the next 2 days, please take milk of magnesia over the counter. Please follow the post op diet and do not advance your diet until you are seen in the office in about 2 weeks. Please walk around your home every hour or two to prevent blood clots from forming in your legs. You do not need to wake from sleeping to walk. Please sleep in a bed or couch to prevent kinking at the hips and knees. Please take your incentive spirometer (your lung outside sales advertising executive) home with you and use it for the next few days to prevent pneumonias. You may shower, no hot tubs, baths or swimming pools. Please call the office with any questions or concerns such as increasing abdominal pain, fever, chills, shortness of breath, chest pain, leg pain or swelling, or redness or drainage from your incisions. Do not hesitate to contact the office with any questions at . The patient's medical history has been reviewed and they are considered low risk for post op DVT and therefore DVT prophylaxis is not considered necessary. Travel after surgery was reviewed. The patient has not disclosed any travel plans during the first 30 days after surgery and they have been advised that within the first 30 days after surgery any bus, plane, train or car travel over 2 hours in duration is contraindicated due to the possibility of developing blood clots from immobility. Any travel, needs to include periods of ambulation of 10 minutes in duration every 2 hours. The patient was instructed to discuss any plans for travel during this period with their bariatric surgeon. Assessment: post op sleeve gastrectomy
--- NOTE | 2022-03-04 14:35 | HO.POSTANES ---
Post Anesthesia Evaluation Post Anesthesia Evaluation Vital Signs: Vital Signs Temp Pulse Resp BP Pulse Ox 03/04/22 07:33 97.4 F 80 19 137/70 97 03/04/22 04:00 97.7 F 90 18 131/79 97 Anesthesia: General Endotracheal-GETA Mental Status: Awake Pain Control: Satisfactory Nausea/Vomiting: None Hydration: Adequate Anesthesia-Related Issues: No Anes. Related Issues
== END 2022-03-04 10:30 | disposition home or self-care (01) | DRG 403 ==
LOC: HO.SSSA 16:41 → HO.S3 18:30
PROVIDERS: Nurse Practitioner; Physician Assistant; Physician Assistant Surgical; Admitting Provider Surgery; PCP Registered Nurse; Visit Provider Surgery
PROC: 0DB64Z3 Excision of Stomach, Percutaneous Endoscopic Approach, Vertical (ICD-10-PCS; CPT 43845; principal; 2022-03-03 12:50)
DX: E66.01 Morbid (severe) obesity due to excess calories (principal); E11.9 Type 2 diabetes mellitus without complications; E28.2 Polycystic ovarian syndrome; G35 Multiple sclerosis; E78.5 Hyperlipidemia, unspecified; G47.33 Obstructive sleep apnea (adult) (pediatric); K66.0 Peritoneal adhesions (postprocedural) (postinfection); M19.90 Unspecified osteoarthritis, unspecified site; Z99.89 Dependence on other enabling machines and devices; J45.909 Unspecified asthma, uncomplicated; I10 Essential (primary) hypertension; F32.9 Major depressive disorder, single episode, unspecified; G43.909 Migraine, unspecified, not intractable, without status migrainosus; Z20.822 Contact with and (suspected) exposure to COVID-19; Z68.37 Body mass index [BMI] 37.0-37.9, adult; Z79.51 Long term (current) use of inhaled steroids; Z79.3 Long term (current) use of hormonal contraceptives; Z79.899 Other long term (current) drug therapy
CPT/HCPCS: 36415; 80048; 80053; 80061; 81025; 82947; 83036; 83525; 84443; 85014; 85018; 85025; 85610; 85730; 86140; 86850; 86900; 86901; 87635; 88307; 88342; 99024; A4649; J0131; J0690; J1100; J1170; J2250; J2405; J3010

== ENCOUNTER → 2022-03-10 14:24 | Outpatient (BNVA) | payer MEDICAID, SELFPAY | PROVIDERS: PCP Registered Nurse; Referring Provider Registered Nurse; Visit Provider Surgery | DX: E66.9 Obesity, unspecified (principal); Z68.33 Body mass index [BMI] 33.0-33.9, adult | CPT/HCPCS: 99212 ==

== ENCOUNTER → 2022-03-30 14:21 | Outpatient (BNVA) | payer MEDICAID, SELFPAY | PROVIDERS: PCP Registered Nurse; Visit Provider Physician Assistant | DX: E66.9 Obesity, unspecified (principal); Z98.84 Bariatric surgery status; Z68.31 Body mass index [BMI] 31.0-31.9, adult | CPT/HCPCS: 99212 ==

== ENCOUNTER → 2022-04-29 14:52 | Outpatient (BNVA) | payer MEDICAID, SELFPAY | PROVIDERS: PCP Registered Nurse; Visit Provider Physician Assistant | DX: E66.3 Overweight (principal); Z68.29 Body mass index [BMI] 29.0-29.9, adult; Z98.84 Bariatric surgery status | CPT/HCPCS: 99212 ==

== ENCOUNTER 2022-11-18 10:24 | Outpatient (REF) | payer MEDICAID, SELFPAY ==
[2022-11-18 10:41] LABS: MANUAL DIFF FLAG NO
[2022-11-18 10:58] LABS: Basophils Percent Auto 0.8 % (0-2); Eosinophils Percent Auto 0.8 % (0-4); Hematocrit 36.4 % (37.0-47.0); Imm Gran Abs Auto 0.01 X10*3/uL (0.00-0.03); Imm Gran Pct Auto 0.2 % (0.0-0.4); Lymphocytes Absolute Auto 2.1 X10*3/uL (1.2-4.9); Lymphocytes Percent Auto 43.6 % (20-40); Mean Corpuscular Hemoglobin 29.3 pg (27.0-33.0); Mean Platelet Volume 11.4 fL (9.4-12.3); Monocytes Absolute Auto 0.3 X10*3/uL (0.1-1.2); Neutrophils Absolute Auto 2.4 x10*3/uL (2.0-8.3); Neutrophils Percent Auto 48.6 % (45-73); Platelet Count 232 X10*3/uL (160-400); Red Blood Count 4.09 X10*6/uL (4.20-5.50); Red Cell Distribution Width 12.8 % (11.0-16.0); White Blood Count 4.8 X10*3/uL (4.8-10.8)
[2022-11-18 11:12] LABS: Estimated Average Glucose 94 mg/dL; Hemoglobin A1c % 4.9 %
[2022-11-18 11:48] LABS: Alanine Aminotransferase 14 U/L (0-31); Albumin Level 4.4 g/dL (3.5-5.0); Alkaline Phosphatase 49 U/L (39-117); Anion Gap 11 (12-20); Aspartate Amino Transferase 17 U/L (5-31); Bilirubin Total 0.8 mg/dL (0.0-1.0); Blood Urea Nitrogen 14 mg/dL (9-16); C Reactive Protein < 0.10 mg/dL (< or = 0.50); Calcium 9.5 mg/dL (8.4-10.2); Carbon Dioxide 26 mmol/L (22-29); Chloride 106 mmol/L (96-108); Cholesterol 178 mg/dL; Estimated Glomerular Filt Rate > 60; Ferritin 38 ng/mL (10-122); Glucose Random 78 mg/dL (60-115); HDL Cholesterol 48 mg/dL; Insulin 3 uU/mL (2-29); Iron 107 mcg/dL (30-160); LDL Cholesterol Calculated 116 mg/dl; Percent Iron Saturation 34 % (15-50); Potassium 3.9 mmol/L (3.3-5.1); Sodium 139 mmol/L (135-145); TSH reflex Free T4 0.94 uIU/mL (0.32-4.0); Total Iron Binding Capacity 318 mcg/dL (228-428); Total Protein 7.3 g/dL (6.5-8.0); Triglycerides 74 mg/dL; Unsaturated Iron Binding 211 ug/dL; Vitamin D 25-OH Total 37.6 ng/mL (>30)
[2022-11-18 11:54] LABS: Vitamin B12 451 pg/mL (200-900)
[2022-11-19 17:47] LABS: Calcium (PTHI) 9.5 mg/dL (8.6-10.2); PTHI 38 pg/mL (16-77)
[2022-11-24 18:03] LABS: Zinc 96 mcg/dL (60-130)
[2022-11-24 21:23] LABS: Vitamin A 40 mcg/dL (38-98)
[2022-11-25 04:39] LABS: Vitamin B1 8 nmol/L (8-30)
== END 2022-11-18 10:25 | disposition home or self-care (01) ==
LOC: HO.LAB 10:24
PROVIDERS: PCP Registered Nurse; Visit Provider Physician Assistant Surgical
DX: Z98.84 Bariatric surgery status (principal)
CPT/HCPCS: 36415; 80053; 80061; 82306; 82607; 82728; 82746; 83036; 83525; 83540; 83970; 84425; 84443; 84590; 84630; 85025; 86140

== ENCOUNTER → 2022-11-27 11:57 | Outpatient (BNVA) | payer MEDICAID, SELFPAY | PROVIDERS: PCP Registered Nurse; Visit Provider Physician Assistant Surgical | DX: Z79.01 Long term (current) use of anticoagulants (principal) ==

== ENCOUNTER → 2023-03-11 14:25 | Outpatient (BNVA) | payer MEDICAID, SELFPAY | PROVIDERS: PCP Registered Nurse; Visit Provider Physician Assistant Surgical | DX: L98.7 Excessive and redundant skin and subcutaneous tissue (principal); Z98.84 Bariatric surgery status | CPT/HCPCS: 99212 ==

== ENCOUNTER 2023-04-06 16:20 | Outpatient (REF) | payer MEDICAID, SELFPAY ==
--- NOTE | ~2023-04-06 | XR_ITS ---
EXAMINATION: XR LUMBOSACRAL SPINE CLINICAL INFORMATION: Pain COMPARISON: None available. TECHNIQUE: Three views of the lumbosacral spine. FINDINGS: The vertebral bodies and posterior elements are normal. The disc spaces are preserved and the vertebral alignment is normal. The paraspinal soft tissues are normal. XR/XR lumbar spine 2-3V IMPRESSION: Unremarkable examination.
--- NOTE | ~2023-04-06 | XR_ITS ---
EXAMINATION: XR THORACOLUMBAR SPINE CLINICAL INFORMATION: Pain COMPARISON: None available. TECHNIQUE: 3 views FINDINGS: Bone alignment is normal. No fracture or dislocation. Normal disc spaces. Normal paraspinal soft tissues. XR/XR thoracic spine 2V IMPRESSION: Unremarkable exam.
== END 2023-04-06 16:21 | disposition home or self-care (01) ==
LOC: HO.HHCX 16:20
PROVIDERS: Visit Provider Registered Nurse
DX: M54.6 Pain in thoracic spine (principal); M54.50 Low back pain, unspecified
CPT/HCPCS: 72070; 72100

== ENCOUNTER 2023-06-16 10:00 | Outpatient (AMB) | payer MEDICAID, SELFPAY ==
--- NOTE | 2023-06-16 10:02 | A.OFFVIS_ITS ---
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: Yes Allergies No Known Allergies [No Known Allergies*] Allergy (Verified 03/11/23 14:31) Medication List - Last Reconciled 06/16/23 by SHAYNE Lund albuterol sulfate 90 mcg/actuation 2 puffs inhalation Q6H PRN calcium citrate-vitamin D3 315 mg-5 mcg (200 unit) (Calcium Citrate + D) 1 tab PO BID clotrimazole 1% 1 appl topical BID escitalopram oxalate 1 tab DAILY fluticasone propionate 50 mcg/actuation 1 - 2 sprays intranasal DAILY PRN glatiramer (Copaxone) mg subcut hydroxyzine HCl 25 mg PO TID PRN inulin (Fiber Gummies) grams PO [id number]-vit K 45 mg iron- 800 mcg-120 mcg (Bariatric Multivitamins) 1 cap PO .daily in evening norethindrone ac-eth estradiol 1.5-30 mg-mcg (Junel) 1 tab DAILY HPI HPI Comments History of Present Illness Details This?is a?37?yo female who is s/p LSG 03/03/2022. Presents for 15 month post op visit. Weight at last visit on 03/11/2023 was 128 pounds with a BMI of 23.8, weight today is 126.8 pounds, representing a 1.2 pound weight loss with a BMI today of 23.6.? No complaints of nausea, emesis, abdominal pain or reflux, or constipation. Present meal plan includes: 6-9am - Atkins 30 gram shake - sipped very slowly 12pm - 2 oz protein and 1 oz cooked veg 5pm -? same as lunch All meals last 20 - 30 minutes and does not drink and eat at the same time. Exercise routine includes: treadmill Pt reports problems of excess skin of abdomen and thighs. Pt reports the excess skin of both areas is very uncomfortable. Walking and using the treadmill is very uncomfortable due to excess skin of legs rubbing together. Notes chafing of the skin due to rubbing. Has to wear compressive pants to protect skin. When she sweats, the friction between legs causes irritation. She notices increased rashes between her legs, worsening due to warm weather and excess moisture. She notices skin rubbing together even with walking and daily activities, which is very uncomfortable and makes exercise more difficult, limiting comfortable range of motion. Has to wear a compressive waistband of her pants to hold excess skin of abdomen in place to prevent discomfort. Notices that when sweat collects in skin folds, it has an unpleasant odor. She also has started to develop painful rashes in the skin folds. She also reports some issues of excess skin of arms, including itching at axillae due to chafing. [facility] Medical History (Updated 03/11/23 @ 14:53 by SHAYNE Lund) Abnormal Pap smear of cervix Asthma BMI 36.0-36.9,adult BMI 37.0-37.9, adult BMI 39.0-39.9,adult Constipation COVID-19 vaccine series completed Depression DJD (degenerative joint disease) Elevated testosterone level GERD (gastroesophageal reflux disease) H. pylori infection Hyperlipidemia Hypertension Migraines Multiple sclerosis Non-insulin dependent type 2 diabetes mellitus PCOS (polycystic ovarian syndrome) Pre-op evaluation Secondary amenorrhea Sleep apnea Well woman exam with routine gynecological exam Surgical History H/O laparoscopy Hx of section S/P laparoscopic sleeve gastrectomy Family History Sister Stomach cancer Uterine cancer Mother Diabetes Hypertension Obesity Father No problems noted. Brother No problems noted. Brother Sleep apnea Sister No problems noted. Daughter Asthma Social History (Updated 03/11/23 @ 14:34 by Geno Novak CMA) Household Members: Family Household Members Other:: daughter (age 18) Housing: House Are you a primary health care facilities inspector to a significant other at home: No Do you presently have visiting nurse or other home services: No Alcohol intake: former Patient Tobacco Use Status: Never used Tobacco Second Hand Smoke Exposure: No service: No Current occupational status: employed Gender identity: Female Female Reproductive History Menstrual Age of Menarche: 12 Assessment & Plan Assessment & Plan (1) Excess skin: Code(s): L98.7 - Excessive and redundant skin and subcutaneous tissue (2) S/P laparoscopic sleeve gastrectomy: Comment: 03/03/22 Code(s): Z98.84 - Bariatric surgery status Plan Pt continues to do well maintaining weight loss and healthy BMI. No changes desired to meal plan today. She continues to experience problems of excess skin of her upper thighs resulting in pain/discomfort, compromised skin integrity, and limiting her physical function/exercise. She is also experiencing problems of excess skin of abdomen, resulting in pain/discomfort, compromised skin integrity/ painful rashes, and limiting her physical function/exercise. Clotrimazole ointment ordered for ongoing rashes. RTC 3 months for 18 month appointment. Patient is at healthy BMI but with ongoing issues of excess skin of legs and abdomen, and is not considered stable at this time. I spent a total of 30 minutes reviewing/updating records, examining the patient and counseling the patient on weight management as detailed above. Medications: New clotrimazole 1% 1 appl topical BID 45 grams 3RF Telehealth Telehealth Location of provider rendering services: practice address Location of patient: address on file Patient Identification confirmed using: Name, : Yes Telehealth method: video Patient verbally consented to treatment: Yes Patient verbally consented to billing insurance company: Yes Patient informed of any privacy concerns related to visit: Yes Coding Level of Care Code Tele Est Pt Level 4 (44798) Diagnoses Excess skin L98.7 S/P laparoscopic sleeve gastrectomy Z98.84
[2023-06-16 10:08] VITALS: BMI 23.6
== END 2023-06-16 10:20 | disposition home or self-care (01) ==
LOC: HO.HBS 10:20
PROVIDERS: PCP Registered Nurse; Visit Provider Physician Assistant Surgical
DX: L98.7 Excessive and redundant skin and subcutaneous tissue (principal); Z98.84 Bariatric surgery status
CPT/HCPCS: 99214

== ENCOUNTER 2023-07-16 08:47 | Outpatient (REF) | payer MEDICAID, SELFPAY ==
[2023-07-19 16:44] LABS: TS Negative Control Passed; TS Panel A 0; TS Panel B 0; TS Positive Control Passed; TSpotTB Negative (Negative)
== END 2023-07-16 08:48 | disposition home or self-care (01) ==
LOC: HO.HHCL 08:47
PROVIDERS: Visit Provider Registered Nurse
DX: Z00.00 Encounter for general adult medical examination without abnormal findings (principal)
CPT/HCPCS: 36415; 86481

== ENCOUNTER 2023-07-26 13:27 | Outpatient (REF) | payer MEDICAID, SELFPAY ==
[2023-07-26 15:58] LABS: MANUAL DIFF FLAG NO
[2023-07-26 16:07] LABS: Basophils Percent Auto 0.5 % (0-2); Eosinophils Absolute Auto 0.1 X10*3/uL (0.0-0.4); Hemoglobin 11.6 g/dl (12.0-16.0); Imm Gran Abs Auto 0.03 X10*3/uL (0.00-0.03); Imm Gran Pct Auto 0.4 % (0.0-0.4); Mean Corpuscular HGB Conc 32.2 g/dl (31.0-35.0); Mean Corpuscular Hemoglobin 29.3 pg (27.0-33.0); Mean Corpuscular Volume 90.9 fL (80.0-98.0); Mean Platelet Volume 11.9 fL (9.4-12.3); Monocytes Absolute Auto 0.3 X10*3/uL (0.1-1.2); Monocytes Percent Auto 3.7 % (2-11); Neutrophils Absolute Auto 5.9 x10*3/uL (2.0-8.3); Neutrophils Percent Auto 70.4 % (45-73); Platelet Count 255 X10*3/uL (160-400); Red Blood Count 3.96 X10*6/uL (4.20-5.50); Red Cell Distribution Width 12.8 % (11.0-16.0); White Blood Count 8.4 X10*3/uL (4.8-10.8)
[2023-07-26 16:13] LABS: Estimated Average Glucose 94 mg/dL; Hemoglobin A1c % 4.9 % (<6.0)
[2023-07-26 16:39] LABS: Alanine Aminotransferase 18 U/L (0-31); Albumin Level 4.2 g/dL (3.5-5.0); Alkaline Phosphatase 51 U/L (39-117); Anion Gap 11 (12-20); Aspartate Amino Transferase 20 U/L (5-31); Bilirubin Total 0.3 mg/dL (0.0-1.0); Blood Urea Nitrogen 15 mg/dL (9-16); Calcium 9.4 mg/dL (8.4-10.2); Carbon Dioxide 26 mmol/L (22-29); Chloride 107 mmol/L (96-108); Estimated Glomerular Filt Rate > 60; Glucose Random 110 mg/dL (60-115); Potassium 3.9 mmol/L (3.3-5.1); Sodium 140 mmol/L (135-145); Total Protein 7.4 g/dL (6.5-8.0)
[2023-07-26 16:48] LABS: HCG Quantitative < 2 mIU/mL; Thyroid Stimulating Hormone 0.93 uIU/mL (0.32-4.0); Vitamin D 25-OH Total 39.8 ng/mL (>30)
[2023-07-27 04:13] LABS: Syphilis Screen Nonreactive (Nonreactive)
[2023-07-27 04:51] LABS: HBS Num1 106.74 mIU/mL (0-7.99); HBsAGNum1 0.32 S/CO (0.00-0.99); HIV AB/AG Nonreactive (Nonreactive); HIV Num 1 0.16 S/CO (0.00-0.99); Hepatitis A Antibody IgM 0.25 Index (0-0.79); Hepatitis B Core Antibody Nonreactive (Nonreactive); Hepatitis B Surface Antigen Negative (Negative); ~HepC Num1 0.12 S/CO (0.00-0.79); ~Hepatitis A Antibody IgM Nonreactive (Nonreactive); ~Hepatitis B Surface Antibody REACTIVE (Nonreactive); ~Hepatitis C Antibody Nonreactive (Nonreactive)
[2023-07-28 03:34] LABS: Lutenizing Hormone 4.5 mIU/mL; Prolactin 13.2 ng/mL
[2023-07-28 04:57] LABS: Rubella IgG Antibody 1.58 Index
[2023-07-29 20:04] LABS: Anti-Mullerian Hormone-Female 4.66 ng/mL (0.18-5.68)
[2023-07-30 15:53] LABS: Testosterone, Total 14 ng/dL (2-45)
[2023-07-31 19:49] LABS: Estradiol Ultra Sensitive 16 pg/mL
[2023-08-02 19:28] LABS: Progesterone <0.1 ng/mL
== END 2023-07-26 13:28 | disposition home or self-care (01) ==
LOC: HO.HHCL 13:27
PROVIDERS: Visit Provider Registered Nurse
DX: Z11.4 Encounter for screening for human immunodeficiency virus [HIV] (principal); N97.9 Female infertility, unspecified
CPT/HCPCS: 36415; 80053; 82306; 82397; 82670; 83001; 83002; 83036; 84144; 84146; 84403; 84443; 84702; 85025; 86704; 86706; 86709; 86762; 86780; 86787; 86803; 86900; 86901; 87340; 87389

== ENCOUNTER 2023-08-04 15:40 | Outpatient (REF) | payer MEDICAID, SELFPAY ==
[2023-08-04 18:10] LABS: Iron 97 mcg/dL (30-160); Percent Iron Saturation 30 % (15-50); Total Iron Binding Capacity 319 mcg/dL (228-428); Unsaturated Iron Binding 222 ug/dL
[2023-08-04 18:24] LABS: Ferritin 13 ng/mL (10-122)
[2023-08-04 18:40] LABS: Folate 9.1 ng/mL (> or = 4.0); Vitamin B12 504 pg/mL (200-900)
== END 2023-08-04 15:41 | disposition home or self-care (01) ==
LOC: HO.HHCL 15:40
PROVIDERS: Visit Provider Registered Nurse
DX: D64.9 Anemia, unspecified (principal)
CPT/HCPCS: 36415; 82607; 82728; 82746; 83540

== ENCOUNTER 2023-09-14 12:44 | Outpatient (AMB) | payer MEDICAID, SELFPAY ==
--- NOTE | 2023-09-14 12:46 | MHC.OFFVISWM ---
Intake VS Expanded 09/14/23 12:52 BP 125/62 Blood Pressure Location Rt brachial Blood Pressure Position Sitting Pulse 73 Pulse Source Pulse Oximeter Temp 97.6 F Temperature Source Temporal Artery Scan Pulse Oximetry 100 Oxygen Delivery Method Room Air Height 5 ft 1.5 in Weight 126 lb 6.4 oz BMI 23.5 Body Fat % 24.3 Body Fat Mass 30.6 Fat Free Mass 95.6 Visceral Fat Rating 3.0 Body Water % 54.3 Body Water Mass 68.6 Muscle Mass/Score 90.8 Basal Metabolic Rate/Score 1,293 Intake Visit Reasons: (OV) PO LSG 03/03/22 Allergies No Known Allergies [No Known Allergies*] Allergy (Verified 09/14/23 12:49) Medication List - Last Reconciled 09/14/23 by SHAYNE Lund albuterol sulfate 90 mcg/actuation 2 puffs inhalation Q6H PRN clotrimazole 1% 1 appl topical BID escitalopram oxalate 1 tab DAILY fluticasone propionate 50 mcg/actuation 1 - 2 sprays intranasal DAILY PRN glatiramer (Copaxone) mg subcut hydroxyzine HCl 25 mg PO TID PRN inulin (Fiber Gummies) grams PO [id number]-FA-vit K 45 mg iron- 800 mcg-120 mcg (Bariatric Multivitamins) 1 cap PO .daily in evening HPI HPI Comments History of Present Illness Details This?is a?37?yo female who is s/p LSG 03/03/2022. Presents for 18 month post op visit. Weight at last visit on 06/16/2023 was 126.8 pounds with a BMI of 23.6, weight today is 126.4 pounds, representing a 0.4 pound weight loss with a BMI today of 23.5.? No complaints of nausea, emesis, abdominal pain or reflux, or constipation. Present meal plan includes: 6-9am - Atkins 30 gram shake - sipped very slowly 12pm - 2 oz protein and 1 oz cooked veg 5pm -? same as lunch All meals last 20 - 30 minutes and does not drink and eat at the same time. Exercise routine includes: treadmill Pt reports problems of excess skin of abdomen and thighs. Pt reports the excess skin of both areas is very uncomfortable. Walking and using the treadmill is very uncomfortable due to excess skin of legs rubbing together. Notes chafing of the skin due to rubbing. Has to wear compressive pants to protect skin. When she sweats, the friction between legs causes irritation. She notices increased rashes between her legs, worsening due to warm weather and excess moisture. She notices skin rubbing together even with walking and daily activities, which is very uncomfortable and makes exercise more difficult, limiting comfortable range of motion. Regarding excess skin of her abdomen, she has to wear a compressive waistband of her pants to hold excess skin of abdomen in place to prevent discomfort. Notices that when sweat collects in skin folds, it has an unpleasant odor. She also has started to develop painful rashes in the skin folds. She has tried clotrimazole ointment which was ordered at last visit 3 months ago but this has not completely resolved the rashes. She also reports some issues of excess skin of arms, including itching at axillae due to chafing. [facility] Medical History (Updated 03/11/23 @ 14:53 by SHAYNE Lund) BMI 36.0-36.9,adult COVID-19 vaccine series completed Sleep apnea Multiple sclerosis BMI 37.0-37.9, adult Constipation H. pylori infection DJD (degenerative joint disease) Depression GERD (gastroesophageal reflux disease) Hyperlipidemia Non-insulin dependent type 2 diabetes mellitus BMI 39.0-39.9,adult Pre-op evaluation Elevated testosterone level Secondary amenorrhea Well woman exam with routine gynecological exam Abnormal Pap smear of cervix PCOS (polycystic ovarian syndrome) Asthma Hypertension Migraines Surgical History S/P laparoscopic sleeve gastrectomy H/O laparoscopy Hx of section Family History Sister Stomach cancer Uterine cancer Mother Diabetes Hypertension Obesity Father No problems noted. Brother No problems noted. Brother Sleep apnea Sister No problems noted. Daughter Asthma Social History (Updated 03/11/23 @ 14:34 by Geno Novak CMA) Household Members: Family Household Members Other:: daughter (age 18) Housing: House Are you a primary intensive care anaesthetist to a significant other at home: No Do you presently have visiting nurse or other home services: No Alcohol intake: former Patient Tobacco Use Status: Never used Tobacco Second Hand Smoke Exposure: No service: No Current occupational status: employed Gender identity: Female Female Reproductive History Menstrual Age of Menarche: 12 Physical Exam Const General: cooperative, comfortable and no acute distress Orientation/consciousness: patient oriented x3 GI Other: soft, nontender, nondistended, incisions well healed, no hernia, no masses Grade II pannus Skin Other: excess skin of upper thighs particularly at proximal aspect medially with contact between thighs present with feet together Neuro General: patient oriented x3 Assessment & Plan Assessment & Plan (1) Excess skin: Code(s): L98.7 - Excessive and redundant skin and subcutaneous tissue (2) S/P laparoscopic sleeve gastrectomy: Comment: 03/03/22 Code(s): Z98.84 - Bariatric surgery status Plan Pt continues to do well maintaining weight loss and healthy BMI. Will keep same meal plan for now since we are considering another surgery but once she is recovered can meet with RD to discuss maintenance. She continues to experience problems of excess skin of her upper thighs resulting in pain/discomfort, compromised skin integrity, and limiting her daily physical function as well as exercise. She would benefit from definitive treatment of bilateral thighplasty. She is also experiencing problems of excess skin of abdomen, resulting in pain/discomfort, compromised skin integrity/ painful rashes refractory to Rx topical treatment, and limiting her daily physical function as well as exercise. She would benefit from definitive treatment of panniculectomy. Will submit to insurance for approval of panniculectomy and thighplasty. 18 month labs ordered as well. Patient is at healthy BMI but with ongoing issues of excess skin of legs and abdomen, and is not considered stable at this time. I spent a total of 30 minutes reviewing/updating records, examining the patient and counseling the patient on weight management as detailed above. Orders: Orders Lipid Panel Today Z98.84 - Bariatric surgery status Complete Blood Count Auto Diff Today Z98.84 - Bariatric surgery status Vitamin B12 and Folate Today Z98.84 - Bariatric surgery status Comprehensive Met. Panel Today Z98.84 - Bariatric surgery status Vitamin B1 Today Z98.84 - Bariatric surgery status Vitamin A Today Z98.84 - Bariatric surgery status C Reactive Protein Today Z98.84 - Bariatric surgery status Ferritin Today Z98.84 - Bariatric surgery status PTHI Today Z98.84 - Bariatric surgery status Vitamin D 25-OH Total Today Z98.84 - Bariatric surgery status Insulin Today Z98.84 - Bariatric surgery status IRON PROFILE Today Z98.84 - Bariatric surgery status Zinc Today Z98.84 - Bariatric surgery status TSH reflex Free T4 Today Z98.84 - Bariatric surgery status Hemoglobin A1c Today Z98.84 - Bariatric surgery status Coding Level of Care Code Est Pt Level 4 (77334) Diagnoses Excess skin L98.7 S/P laparoscopic sleeve gastrectomy Z98.84
[2023-09-14 12:52] VITALS: BP 125/62; PULSE 73; TEMP 36.4; O2SAT 100; BMI 23.5
== END 2023-09-14 13:31 | disposition home or self-care (01) ==
PROVIDERS: PCP Registered Nurse; Visit Provider Physician Assistant Surgical
DX: L98.7 Excessive and redundant skin and subcutaneous tissue (principal); Z98.84 Bariatric surgery status
CPT/HCPCS: 99214

== ENCOUNTER → 2023-09-14 12:44 | Outpatient (BNVA) | payer MEDICAID, SELFPAY | PROVIDERS: PCP Registered Nurse; Visit Provider Physician Assistant Surgical | DX: L98.7 Excessive and redundant skin and subcutaneous tissue (principal); Z68.23 Body mass index [BMI] 23.0-23.9, adult; Z90.3 Acquired absence of stomach [part of] | CPT/HCPCS: 99212 ==

== ENCOUNTER → 2023-11-01 14:33 | Outpatient (BNVA) | payer MEDICAID, SELFPAY | PROVIDERS: PCP Registered Nurse; Visit Provider Surgery ==

== ENCOUNTER 2023-11-12 08:22 | Outpatient (AMB) | payer MEDICAID, SELFPAY ==
--- NOTE | 2023-11-12 10:33 | A.OFFVIS_ITS ---
Intake VS Expanded 11/12/23 10:35 Height 5 ft 1.5 in Weight 126 lb BMI 23.4 Intake Visit Reasons: TV Pre Op Pannic/Thigh 11/25/23 Allergies No Known Allergies [No Known Allergies*] Allergy (Verified 11/12/23 10:36) Medication List - Last Reconciled 11/12/23 by Ricardo Aaron MD albuterol sulfate 90 mcg/actuation 2 puffs inhalation Q6H PRN cephalexin 500 mg PO Q12H clotrimazole 1% 1 appl topical BID docusate sodium (Colace) 100 mg PO DAILY escitalopram oxalate 1 tab DAILY fluticasone propionate 50 mcg/actuation 1 - 2 sprays intranasal DAILY PRN glatiramer (Copaxone) mg subcut hydroxyzine HCl 25 mg PO TID PRN inulin (Fiber Gummies) grams PO xpcnzbqqwnqu-urf-hwuf-FA-vit K 45 mg iron- 800 mcg-120 mcg (Bariatric Multivitamins) 1 cap PO .daily in evening HPI TV Pre Op Pannic/Thigh 11/25/23 HPI Details Start time: 10.23am, End time: 10.53am ?I spent 25 minutes speaking with the patient on the phone plus an additional 5 minutes reviewing and updating records for a total of 30 minutes HPI Comments History of Present Illness Details Overall weight loss: 84lbs, or 40% Is doing 2 Premier protein shakes, and one meal (2oz protein and 2oz salad or vegetables) and fruits Occasionally she does an Atkins protein bar Exercise: doing treadmill x3-4 days per week for 40 minutes PFSH Medical History (Updated 11/12/23 @ 10:32 by Ricardo Aaron MD) Postgastrectomy malabsorption BMI 36.0-36.9,adult COVID-19 vaccine series completed Sleep apnea Multiple sclerosis BMI 37.0-37.9, adult Constipation H. pylori infection DJD (degenerative joint disease) Depression GERD (gastroesophageal reflux disease) Hyperlipidemia Non-insulin dependent type 2 diabetes mellitus BMI 39.0-39.9,adult Pre-op evaluation Elevated testosterone level Secondary amenorrhea Well woman exam with routine gynecological exam Abnormal Pap smear of cervix PCOS (polycystic ovarian syndrome) Asthma Hypertension Migraines Surgical History S/P laparoscopic sleeve gastrectomy H/O laparoscopy Hx of section Family History Sister Stomach cancer Uterine cancer Mother Diabetes Hypertension Obesity Father No problems noted. Brother No problems noted. Brother Sleep apnea Sister No problems noted. Daughter Asthma Social History Household Members: Family Household Members Other:: daughter (age 18) Housing: House Are you a primary animal care assistant to a significant other at home: No Do you presently have visiting nurse or other home services: No Alcohol intake: former Patient Tobacco Use Status: Never used Tobacco Second Hand Smoke Exposure: No service: No Current occupational status: employed Gender identity: Female Female Reproductive History Menstrual Age of Menarche: 12 Assessment & Plan Assessment & Plan (1) Excess skin: Code(s): L98.7 - Excessive and redundant skin and subcutaneous tissue Plan: 1. Plan for bilateral thighplasty and panniculectomy. Risks of infection, bleeding, asymmetry, wound dehiscence and blood clots were discussed with the patient. 2. You will have a drain the abdomen that may stay a few weeks before it may be removed 3. You will need to be doing sponge baths the first 1-2 weeks. No showers. You need to have help at home to get you up and limit your activities as much as possible for at least the 4-6 weeks after surgery 4. We will arrange for a visiting nurse to come at home to help you with dressing changes and send me pictures of the procedures. We will send at your home supplies for the dressing changes. 5. Change nutritional plan to TWO premade Premier shake at 8am-10am, 1-2 Atkins protein bars and one meal (4 forks of protein and 4 forks of salad or vegetables). 6. Continue all vitamins 7. 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 Risks and complications were discussed the possibility of bleeding that may require transfusion, loss of the umbilicus, wound dehiscence or infection, dog ears , flap asymmetry. We also discussed the importance of strict avoidance of weight lifting. 9. Avoid aspirin, motrin, ibuprofen, Aleve, Advil, Naproxyn. Only Tylenol is OK Orders: Orders Comprehensive Met. Panel Today K91.2 - Postsurgical malabsorption, not elsewhere classified, Z90.3 - Acquired absence of stomach [part of] Vitamin B1 Today K91.2 - Postsurgical malabsorption, not elsewhere classified, Z90.3 - Acquired absence of stomach [part of] Lipid Panel Today K91.2 - Postsurgical malabsorption, not elsewhere classified, Z90.3 - Acquired absence of stomach [part of] Partial Thromboplastin Time Today K91.2 - Postsurgical malabsorption, not elsewhere classified, Z90.3 - Acquired absence of stomach [part of] Vitamin D 25-OH Total Today K91.2 - Postsurgical malabsorption, not elsewhere classified, Z90.3 - Acquired absence of stomach [part of] Complete Blood Count Auto Diff Today K91.2 - Postsurgical malabsorption, not elsewhere classified, Z90.3 - Acquired absence of stomach [part of] Zinc Today K91.2 - Postsurgical malabsorption, not elsewhere classified, Z90.3 - Acquired absence of stomach [part of] IRON PROFILE Today K91.2 - Postsurgical malabsorption, not elsewhere classified, Z90.3 - Acquired absence of stomach [part of] TSH reflex Free T4 Today K91.2 - Postsurgical malabsorption, not elsewhere classified, Z90.3 - Acquired absence of stomach [part of] Vitamin A Today K91.2 - Postsurgical malabsorption, not elsewhere classified, Z90.3 - Acquired absence of stomach [part of] Hemoglobin A1c Today K91.2 - Postsurgical malabsorption, not elsewhere classified, Z90.3 - Acquired absence of stomach [part of] Prothrombin Time INR Today K91.2 - Postsurgical malabsorption, not elsewhere classified, Z90.3 - Acquired absence of stomach [part of] Type and Screen Today K91.2 - Postsurgical malabsorption, not elsewhere classified, Z90.3 - Acquired absence of stomach [part of] Vitamin B12 Today K91.2 - Postsurgical malabsorption, not elsewhere classified, Z90.3 - Acquired absence of stomach [part of] C Reactive Protein Today K91.2 - Postsurgical malabsorption, not elsewhere classified, Z90.3 - Acquired absence of stomach [part of] Ferritin Today K91.2 - Postsurgical malabsorption, not elsewhere classified, Z90.3 - Acquired absence of stomach [part of] Medications: New docusate sodium (Colace) 100 mg PO DAILY 30 caps 2RF K59.00 - Constipation, unspecified cephalexin 500 mg PO Q12H 60 caps 2RF L03.90 - Cellulitis, unspecified Telehealth Telehealth Location of provider rendering services: practice address Location of patient: address on file Patient Identification confirmed using: Name, : Yes Telehealth method: voice only Patient verbally consented to treatment: Yes Patient verbally consented to billing insurance company: Yes Patient informed of any privacy concerns related to visit: Yes Minutes spent on Phone/Video with Pt.: 30 Coding Level of Care Code Tele Est Pt Level 4 (09180) Diagnoses Excess skin L98.7 Time Spent (min) 30
[2023-11-12 10:35] VITALS: BMI 23.4
== END 2023-11-12 10:54 | disposition home or self-care (01) ==
LOC: HO.HBS 08:22
PROVIDERS: PCP Registered Nurse; Visit Provider Surgery
DX: L98.7 Excessive and redundant skin and subcutaneous tissue (principal)
CPT/HCPCS: 99024

== ENCOUNTER → 2023-11-12 08:22 | Outpatient (BNVA) | payer MEDICAID, SELFPAY | PROVIDERS: PCP Registered Nurse; Visit Provider Surgery | DX: L98.7 Excessive and redundant skin and subcutaneous tissue (principal) | CPT/HCPCS: 99212 ==

== ENCOUNTER → 2023-11-25 05:44 | Day surgery (SDC) | payer OTHER, SELFPAY ==
[2023-11-16 12:39] VITALS: BMI 22.3
[2023-11-19 06:20] LABS: MANUAL DIFF FLAG NO
[2023-11-19 07:12] LABS: Basophils Absolute Auto 0.1 X10*3/uL (0.0-0.2); Basophils Percent Auto 1.1 % (0-2); Eosinophils Absolute Auto 0.1 X10*3/uL (0.0-0.4); Eosinophils Percent Auto 1.3 % (0-4); Hematocrit 34.6 % (37.0-47.0); Hemoglobin 11.5 g/dl (12.0-16.0); Lymphocytes Absolute Auto 1.6 X10*3/uL (1.2-4.9); Lymphocytes Percent Auto 33.3 % (20-40); Mean Corpuscular HGB Conc 33.2 g/dl (31.0-35.0); Mean Corpuscular Hemoglobin 29.5 pg (27.0-33.0); Mean Corpuscular Volume 88.7 fL (80.0-98.0); Mean Platelet Volume 11.4 fL (9.4-12.3); Monocytes Absolute Auto 0.4 X10*3/uL (0.1-1.2); Monocytes Percent Auto 7.4 % (2-11); Neutrophils Absolute Auto 2.7 x10*3/uL (2.0-8.3); Neutrophils Percent Auto 56.9 % (45-73); Platelet Count 235 X10*3/uL (160-400); Red Cell Distribution Width 12.6 % (11.0-16.0); White Blood Count 4.8 X10*3/uL (4.8-10.8)
[2023-11-19 07:21] LABS: Estimated Average Glucose 100 mg/dL; Hemoglobin A1C 100.6011 umol/L; Hemoglobin A1c % 5.1 % (<6.0)
[2023-11-19 07:49] LABS: Alanine Aminotransferase 12 U/L (0-31); Albumin Level 4.1 g/dL (3.5-5.0); Alkaline Phosphatase 42 U/L (39-117); Anion Gap 14 (12-20); Aspartate Amino Transferase 17 U/L (5-31); Bilirubin Total 0.9 mg/dL (0.0-1.0); Blood Urea Nitrogen 14 mg/dL (9-16); C Reactive Protein < 0.10 mg/dL (< or = 0.50); Calcium 9.1 mg/dL (8.4-10.2); Carbon Dioxide 23 mmol/L (22-29); Chloride 105 mmol/L (96-108); Cholesterol 178 mg/dL (<200); Creatinine Clr Calc Pharmacy 86.4; Estimated Glomerular Filt Rate > 60; Glucose Random 77 mg/dL (60-115); HDL Cholesterol 50 mg/dL (>40); Iron 126 mcg/dL (30-160); LDL Cholesterol Calculated 112 mg/dL (<100); Percent Iron Saturation 38 % (15-50); Potassium 3.9 mmol/L (3.3-5.1); Sodium 138 mmol/L (135-145); Total Iron Binding Capacity 334 mcg/dL (228-428); Total Protein 7.3 g/dL (6.5-8.0); Triglycerides 84 mg/dL (<150); Unsaturated Iron Binding 208 ug/dL
[2023-11-19 08:08] LABS: Ferritin 25 ng/mL (10-122); Insulin 3 uU/mL (2-29); Vitamin D 25-OH Total 19.4 ng/mL (>30)
[2023-11-19 08:10] LABS: Vitamin B12 619 pg/mL (200-900)
[2023-11-24 12:23] LABS: Zinc 71 mcg/dL (60-130)
[2023-11-25 06:38] VITALS: BP 112/67; PULSE 76; RESP 16; TEMP 36.6; O2SAT 98
[2023-11-25 06:45] LABS: UPreg QC Valid YES; Urine Pregnancy NEGATIVE (NEGATIVE)
--- NOTE | 2023-11-25 08:44 | MHC.SHP ---
Pre-Procedural Eval Section A Date of Service: 11/25/23 The patient is an INPATIENT: No The History & Physical has been completed within 30 days and I have reviewed it.: No Section B Chief Complaint: Excessive and redundant skin and subcutaneous tiss Relevant Family History (Specify if Yes): No Relevant Social History: None Present Medications: None Medical History: No relevant PMH History of Previous Operations: Relevant previous surgery/procedure and date(s) (lap sleeve gastrectomy) Allergies: Allergies Allergy/AdvReac Type Severity Reaction Status Date / Time No Known Allergies Allergy Verified 11/25/23 06:08 [No Known Allergies*] Review of Systems Sugical H&P ROS: Negative: Constitution, Cardiovascular, Respiratory, Neurological, Psychiatric, Hem-Onc, Allergic/Immunologic, Gastrointestinal, Genitourinary, Musculoskeletal, Integumentary, Endocrine and Eyes/Ears/Nose/Throat Exam Surgical H&P Exam: Normal: HEENT, Normal: Heart, Normal: Lungs, Normal: Extremities, Normal: Abdomen, Normal: Skin and Normal: Neurological Plan Diagnosis/Plan: Unchanged I have reviewed the history and physical and performed a pertinent physical examination on my patient. No changes have occurred unless specified. Time Spent With Patient Time: Total time managing care of this patient today ____ minutes.
--- NOTE | 2023-11-25 08:53 | P.CONAN_ITS ---
HPI - Anesthesia Eval Consult details Narrative: for panniculectomy and thigh plasty [facility] Active Problems Active Problems: All Active Problems (Updated 11/16/23 @ 12:28 by Radha Keyes RN) Excess skin (Acute) Overweight (Acute) BMI 33.0-33.9,adult (Acute) Intra-abdominal adhesions (Acute) GERD (gastroesophageal reflux disease) (Acute) Obesity (Acute) Multiple sclerosis (Acute) Sleep apnea with use of continuous positive airway pressure (CPAP) (Acute) Prediabetes (Acute) Postgastrectomy malabsorption (Acute) S/P laparoscopic sleeve gastrectomy (Acute) Hyperlipidemia (Acute) Non-insulin dependent type 2 diabetes mellitus (Acute) Hypertension (Acute) Asthma (Acute) PCOS (polycystic ovarian syndrome) (Acute) Secondary amenorrhea (Acute) Past Medical History Medical History Postgastrectomy malabsorption BMI 36.0-36.9,adult COVID-19 vaccine series completed Sleep apnea Multiple sclerosis BMI 37.0-37.9, adult Constipation H. pylori infection DJD (degenerative joint disease) Depression Hyperlipidemia Non-insulin dependent type 2 diabetes mellitus BMI 39.0-39.9,adult Pre-op evaluation Elevated testosterone level Secondary amenorrhea Well woman exam with routine gynecological exam Abnormal Pap smear of cervix PCOS (polycystic ovarian syndrome) Asthma Hypertension Migraines Family History Family History Sister Stomach cancer Uterine cancer Mother Diabetes Hypertension Obesity Father No problems noted. Brother No problems noted. Brother Sleep apnea Sister No problems noted. Daughter Asthma Family history of problems with anesthesia: No Surgical History Surgical History S/P laparoscopic sleeve gastrectomy H/O laparoscopy Hx of section History of Problems with Anesthesia: No Social History Social History Household Members: Family Household Members Other:: daughter (age 18) Housing: House Are you a primary customer care representative to a significant other at home: No Do you presently have visiting nurse or other home services: No Alcohol intake: former Patient Tobacco Use Status: Never used Tobacco Second Hand Smoke Exposure: No Use of substances other than those prescribed or required for medical reasons: No Advance Directives: No Advance Directives Information Provided: Yes Advance Directives on File: No Recently lost weight without trying: No Eating poorly because of decreased appetite: No Nutrition Risks: No Nutritional Risk Patient : No : No Poor oral hygiene: No service: No Current occupational status: employed Gender identity: Female Meds Allergies Allergy/AdvReac Type Severity Reaction Status Date / Time No Known Allergies Allergy Verified 11/25/23 06:08 [No Known Allergies*] Active Medications: Current Medications Lactated Ringer's (Lr) 1,000 mls @ 80 mls/hr IVCONT .[id number] RIGO Cefazolin Sodium/Dextrose (Ancef) 2 gm in 50 mls @ 100 mls/hr IV PREOP ONE Stop: 11/25/23 09:14 Home Medications Medication Instructions Recorded Confirmed Last Taken Type albuterol sulfate 90 mcg/actuation 2 puff inhalation Q6H PRN Wheezing 11/05/21 11/16/23 Unknown History aerosol inhaler hydroxyzine HCl 25 mg tablet 25 mg PO TID PRN Anxiety 11/05/21 11/16/23 Unknown History escitalopram oxalate 20 mg tablet 1 tab DAILY 03/03/22 11/25/23 11/25/23 History fluticasone propionate 50 1 - 2 spray intranasal DAILY PRN 03/03/22 11/16/23 Unknown History mcg/actuation nasal Allergy Symptoms spray,suspension inulin 2 gram chewable tablet 2 g PO DAILY PRN Constipation 03/30/22 11/16/23 Unknown History (Fiber Gummies) glatiramer 20 mg/mL subcutaneous 20 mg subcut DAILY 03/11/23 11/16/23 Unknown History syringe (Copaxone) Exam Height,Weight and Vital Signs: Height 5 ft 3 in Weight 57.153 kg Last Vital Signs Temp 97.9 F 11/25/23 06:38 Pulse 76 11/25/23 06:38 Resp 16 11/25/23 06:38 BP 112/67 11/25/23 06:38 Pulse Ox 98 11/25/23 06:38 O2 Del Method Room Air 11/25/23 06:38 Pertinent Lab Results Pertinent Lab Results: Laboratory Tests 11/19/23 11/25/23 11/25/23 06:14 06:15 06:36 WBC 4.8 RBC 3.90 L Hgb 11.5 L Hct 34.6 L MCV 88.7 MCH 29.5 MCHC 33.2 RDW 12.6 Plt Count 235 MPV 11.4 Immature Gran % (Auto) 0.0 Neut % (Auto) 56.9 Lymph % (Auto) 33.3 [place] % (Auto) 7.4 Eos % (Auto) 1.3 Baso % (Auto) 1.1 Lymph # (Auto) 1.6 [place] # (Auto) 0.4 Eos # (Auto) 0.1 Baso # (Auto) 0.1 Abs Immat Gran (auto) 0.00 Absolute Neuts (auto) 2.7 Absolute Nucleated RBC 0.000 Nucleated RBC % (auto) 0.0 Sodium 138 Potassium 3.9 Chloride 105 Carbon Dioxide 23 Anion Gap 14 BUN 14 Creatinine 0.73 Estim Creat Clear Calc 86.4 Estimated GFR > 60 Random Glucose 77 Estimat Average Glucose 100 Hemoglobin A1c % 5.1 Insulin Level 3 Calcium 9.1 Iron 126 TIBC 334 % Saturation 38 Unsat Iron Binding 208 Ferritin 25 Total Bilirubin 0.9 AST 17 ALT 12 Alkaline Phosphatase 42 C-Reactive Protein < 0.10 Total Protein 7.3 Albumin 4.1 Triglycerides 84 Cholesterol 178 LDL Cholesterol, Calc 112 H HDL Cholesterol 50 Vitamin B12 619 25-OH Vitamin D Total 19.4 L Folate 12.0 TSH 1.10 Urine Test NEGATIVE Zinc 71 Blood Type A Positive Antibody Screen NEGATIVE Airway Mallampati Class: II TM Dist: >3cm Neck ROM: Full Heart: rrr Lungs: cta Assessment and Plan Assessment Anesthesia Assessment: Anesthesia Plan Discussed and Chart Reviewed Final Anesthetic Review Family History of Problems with Anesthesia: No History of Problems with Anesthesia: No NPO: Yes ASA Class: II Final Preanesthetic Review: No Changes in Pt Med Stat, Meds/Allgs Chart Reviewed, Consent Obtained/Reviewed and Anes Risks/Benef Reviewed Patient Risk: Intermediate Procedure Risk: Intermediate Anesthetic Plan Anesthetic Plan: GA Disposition: Standard PACU
[2023-11-25] MEDS: Lactated Ringers 1,000 ML 80 ML IVCONT (08:54)
[2023-11-25] MEDS: Lactated Ringers 1,000 ML 999 ML IV (09:04)
--- NOTE | 2023-11-25 10:53 | PC.NURSE ---
Pt in to pre op for planned procedure. Notified by registration that pt insurance was inactive. Pt notified and attempts made to rectify insurance issues with pt and financial services. Dr Kirby was notified. After lengthy discussion decision was made to cancel procedure. IV discontinued and pt left ambulatory with all belongings.
[2023-11-25 14:19] LABS: Vitamin B1 8 nmol/L (8-30)
[2023-11-26 01:04] LABS: Vitamin A 45 mcg/dL (38-98)
== END ==
PROVIDERS: Anesthesiology; Physician Assistant Surgical; PCP Registered Nurse; Visit Provider Surgery
DX: L98.7 Excessive and redundant skin and subcutaneous tissue (principal); Z53.8 Procedure and treatment not carried out for other reasons; Z98.84 Bariatric surgery status; K91.2 Postsurgical malabsorption, not elsewhere classified; Z90.3 Acquired absence of stomach [part of]; I10 Essential (primary) hypertension; G35 Multiple sclerosis; E11.9 Type 2 diabetes mellitus without complications; Z79.899 Other long term (current) drug therapy
CPT/HCPCS: 36415; 80053; 80061; 81025; 82306; 82607; 82728; 82746; 83036; 83525; 83540; 84425; 84443; 84590; 84630; 85025; 86140; 86850; 86900; 86901; C9088; J0131; J0690; J1100; J1170; J2250; J2405; J2704; J3010; J3370

== ENCOUNTER 2023-12-17 08:14 | Outpatient (AMB) | payer OTHER, SELFPAY ==
--- NOTE | 2023-12-17 10:00 | MHC.OFFVISWM ---
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* Allergies No Known Allergies [No Known Allergies*] Allergy (Verified 12/17/23 10:04) Medication List - Last Reconciled 12/17/23 by Ricardo Aaron MD albuterol sulfate 90 mcg/actuation 2 puffs inhalation Q6H PRN cephalexin 500 mg PO Q12H clotrimazole 1% 1 appl topical BID docusate sodium (Colace) 100 mg PO DAILY escitalopram oxalate 1 tab DAILY fluticasone propionate 50 mcg/actuation 1 - 2 sprays intranasal DAILY PRN glatiramer (Copaxone) 20 mg subcut DAILY hydroxyzine HCl 25 mg PO TID PRN inulin (Fiber Gummies) 2 grams PO DAILY PRN [id number]-vit K 45 mg iron- 800 mcg-120 mcg (Bariatric Multivitamins) 1 cap PO .daily in evening HPI TV Pre Op Panni/Thigh 12/23/23 *POSTAL CARRIER* HPI Details Start time: 9.52am, End time: 10.12am ?I spent 15 minutes speaking with the patient on the phone plus an additional 5 minutes reviewing and updating records for a total of 20 minutes HPI Comments History of Present Illness Details Overall weight loss: 84lbs, or 40% Is doing 2 Premier protein shakes, and one meal (2oz protein and 2oz salad or vegetables) and fruits Occasionally she does an Atkins protein bar Exercise: doing treadmill x3-4 days per week for 40 minutes [facility] Medical History Postgastrectomy malabsorption BMI 36.0-36.9,adult COVID-19 vaccine series completed Sleep apnea Multiple sclerosis BMI 37.0-37.9, adult Constipation H. pylori infection DJD (degenerative joint disease) Depression Hyperlipidemia Non-insulin dependent type 2 diabetes mellitus BMI 39.0-39.9,adult Pre-op evaluation Elevated testosterone level Secondary amenorrhea Well woman exam with routine gynecological exam Abnormal Pap smear of cervix PCOS (polycystic ovarian syndrome) Asthma Hypertension Migraines Surgical History S/P laparoscopic sleeve gastrectomy H/O laparoscopy Hx of section Family History Sister Stomach cancer Uterine cancer Mother Diabetes Hypertension Obesity Father No problems noted. Brother No problems noted. Brother Sleep apnea Sister No problems noted. Daughter Asthma Social History Household Members: Family Household Members Other:: daughter (age 18) Housing: House Are you a primary career technical supervisor to a significant other at home: No Do you presently have visiting nurse or other home services: No Alcohol intake: former Patient Tobacco Use Status: Never used Tobacco Second Hand Smoke Exposure: No service: No Current occupational status: employed Gender identity: Female Female Reproductive History Menstrual Age of Menarche: 12 Assessment & Plan Assessment & Plan (1) Excess skin: Code(s): L98.7 - Excessive and redundant skin and subcutaneous tissue Plan: 1. Plan for bilateral thighplasty and panniculectomy. Risks of infection, bleeding, asymmetry, wound dehiscence and blood clots were discussed with the patient. 2. You will have a drain the abdomen that may stay a few weeks before it may be removed 3. You will need to be doing sponge baths the first 1-2 weeks. No showers. You need to have help at home to get you up and limit your activities as much as possible for at least the 4-6 weeks after surgery 4. We will arrange for a visiting nurse to come at home to help you with dressing changes and send me pictures of the procedures. We will send at your home supplies for the dressing changes. 5. Change nutritional plan to TWO premade Premier shake at 8am-10am, 1-2 Atkins protein bars and one meal (4 forks of protein and 4 forks of salad or vegetables). 6. Continue all vitamins 7. Risks and complications were discussed the possibility of bleeding that may require transfusion, loss of the umbilicus, wound dehiscence or infection, dog ears , flap asymmetry. We also discussed the importance of strict avoidance of weight lifting. 9. Avoid aspirin, motrin, ibuprofen, Aleve, Advil, Naproxyn. Only Tylenol is OK Telehealth Telehealth Location of provider rendering services: practice address Location of patient: address on file Patient Identification confirmed using: Name, : Yes Telehealth method: voice only Patient verbally consented to treatment: Yes Patient verbally consented to billing insurance company: Yes Patient informed of any privacy concerns related to visit: Yes Minutes spent on Phone/Video with Pt.: 20 Coding Level of Care Code Tele Est Pt Level 3 (30294) Diagnoses Excess skin L98.7 Time Spent (min) 20
[2023-12-17 10:11] VITALS: BMI 22.0
== END 2023-12-17 10:13 | disposition home or self-care (01) ==
LOC: HO.HBS 08:14
PROVIDERS: PCP Registered Nurse; Visit Provider Surgery
DX: L98.7 Excessive and redundant skin and subcutaneous tissue (principal)
CPT/HCPCS: 99213

== ENCOUNTER → 2023-12-17 08:14 | Outpatient (BNVA) | payer OTHER, SELFPAY | PROVIDERS: PCP Registered Nurse; Visit Provider Surgery ==

== ENCOUNTER 2023-12-23 06:06 | Day surgery (SDC) | payer OTHER, SELFPAY ==
[2023-12-16 07:24] LABS: MANUAL DIFF FLAG NO
[2023-12-16 07:47] LABS: Estimated Average Glucose 91 mg/dL; Hemoglobin A1c % 4.8 % (<6.0)
[2023-12-16 07:48] LABS: Basophils Absolute Auto 0.1 X10*3/uL (0.0-0.2); Eosinophils Absolute Auto 0.1 X10*3/uL (0.0-0.4); Eosinophils Percent Auto 1.1 % (0-4); Hematocrit 34.5 % (37.0-47.0); Hemoglobin 11.3 g/dl (12.0-16.0); Imm Gran Abs Auto 0.01 X10*3/uL (0.00-0.03); Imm Gran Pct Auto 0.2 % (0.0-0.4); Lymphocytes Percent Auto 32.5 % (20-40); Mean Corpuscular HGB Conc 32.8 g/dl (31.0-35.0); Mean Corpuscular Volume 88.7 fL (80.0-98.0); Mean Platelet Volume 11.1 fL (9.4-12.3); Monocytes Absolute Auto 0.4 X10*3/uL (0.1-1.2); Monocytes Percent Auto 5.9 % (2-11); Neutrophils Absolute Auto 3.6 x10*3/uL (2.0-8.3); Neutrophils Percent Auto 59.3 % (45-73); Platelet Count 229 X10*3/uL (160-400); Red Blood Count 3.89 X10*6/uL (4.20-5.50); Red Cell Distribution Width 12.6 % (11.0-16.0); White Blood Count 6.1 X10*3/uL (4.8-10.8)
[2023-12-16 07:56] LABS: Prothrombin Time 11.7 SEC (11.1-13.3)
[2023-12-16 07:59] LABS: Partial Thromboplastin Time 33.9 SEC (26.0-36.4)
[2023-12-16 08:23] LABS: Alanine Aminotransferase 11 U/L (0-31); Albumin Level 4.1 g/dL (3.5-5.0); Alkaline Phosphatase 41 U/L (39-117); Anion Gap 9 (12-20); Aspartate Amino Transferase 17 U/L (5-31); Bilirubin Total 0.8 mg/dL (0.0-1.0); Blood Urea Nitrogen 11 mg/dL (9-16); C Reactive Protein < 0.10 mg/dL (< or = 0.50); Carbon Dioxide 27 mmol/L (22-29); Chloride 107 mmol/L (96-108); Cholesterol 167 mg/dL (<200); Estimated Glomerular Filt Rate > 60; Glucose Random 83 mg/dL (60-115); HDL Cholesterol 54 mg/dL (>40); Iron 112 mcg/dL (30-160); LDL Cholesterol Calculated 97 mg/dL (<100); Percent Iron Saturation 35 % (15-50); Potassium 3.5 mmol/L (3.3-5.1); Sodium 139 mmol/L (135-145); Total Iron Binding Capacity 321 mcg/dL (228-428); Total Protein 7.3 g/dL (6.5-8.0); Triglycerides 83 mg/dL (<150); Unsaturated Iron Binding 209 ug/dL
[2023-12-16 08:40] LABS: Vitamin B12 551 pg/mL (200-900)
[2023-12-16 08:45] LABS: Ferritin 19 ng/mL (10-122); TSH reflex Free T4 1.52 uIU/mL (0.32-4.0); Vitamin D 25-OH Total 16.4 ng/mL (>30)
[2023-12-19 12:34] LABS: Zinc 64 mcg/dL (60-130)
[2023-12-20 17:29] LABS: Vitamin A 41 mcg/dL (38-98)
[2023-12-21 14:33] LABS: Vitamin B1 8 nmol/L (8-30)
--- NOTE | 2023-12-22 08:53 | P.CONAN_ITS ---
Documented by User: Olive Dawn NP 12/22/23 08:55 HPI - Anesthesia Eval Consult details Narrative: 38yo F for Panniculectomy, Bilateral Brachioplasty s/p gastric sleeve 02/2022 MS with daily injection rx Hx DM without rx, A1C 4.8 [facility] Active Problems Active Problems: All Active Problems (Updated 11/16/23 @ 12:28 by Radha Keyes RN) Excess skin (Acute) Overweight (Acute) BMI 33.0-33.9,adult (Acute) Intra-abdominal adhesions (Acute) GERD (gastroesophageal reflux disease) (Acute) Obesity (Acute) Multiple sclerosis (Acute) Sleep apnea with use of continuous positive airway pressure (CPAP) (Acute) Prediabetes (Acute) Postgastrectomy malabsorption (Acute) S/P laparoscopic sleeve gastrectomy (Acute) Hyperlipidemia (Acute) Non-insulin dependent type 2 diabetes mellitus (Acute) Hypertension (Acute) Asthma (Acute) PCOS (polycystic ovarian syndrome) (Acute) Secondary amenorrhea (Acute) Past Medical History Medical History Postgastrectomy malabsorption BMI 36.0-36.9,adult COVID-19 vaccine series completed Sleep apnea Multiple sclerosis BMI 37.0-37.9, adult Constipation H. pylori infection DJD (degenerative joint disease) Depression Hyperlipidemia Non-insulin dependent type 2 diabetes mellitus BMI 39.0-39.9,adult Pre-op evaluation Elevated testosterone level Secondary amenorrhea Well woman exam with routine gynecological exam Abnormal Pap smear of cervix PCOS (polycystic ovarian syndrome) Asthma Hypertension Migraines Family History Family History Sister Stomach cancer Uterine cancer Mother Diabetes Hypertension Obesity Father No problems noted. Brother No problems noted. Brother Sleep apnea Sister No problems noted. Daughter Asthma Family history of problems with anesthesia: No Surgical History Surgical History S/P laparoscopic sleeve gastrectomy H/O laparoscopy Hx of section History of Problems with Anesthesia: No Social History Social History Household Members: Family Household Members Other:: daughter (age 18) Housing: House Are you a primary customer care representative to a significant other at home: No Do you presently have visiting nurse or other home services: No Alcohol intake: former Patient Tobacco Use Status: Never used Tobacco Second Hand Smoke Exposure: No Use of substances other than those prescribed or required for medical reasons: No Are you DNR?: No Advance Directives: No Advance Directives Information Provided: Yes service: No Current occupational status: employed Gender identity: Female Meds Allergies Allergy/AdvReac Type Severity Reaction Status Date / Time No Known Allergies Allergy Verified 12/17/23 10:04 [No Known Allergies*] Home Medications Medication Instructions Recorded Confirmed Last Taken Type albuterol sulfate 90 mcg/actuation 2 puff inhalation Q6H PRN Wheezing 11/05/21 12/17/23 Unknown History aerosol inhaler hydroxyzine HCl 25 mg tablet 25 mg PO TID PRN Anxiety 11/05/21 12/17/23 Unknown History escitalopram oxalate 20 mg tablet 1 tab DAILY 03/03/22 12/23/23 12/21/23 History fluticasone propionate 50 1 - 2 spray intranasal DAILY PRN 03/03/22 12/17/23 Unknown History mcg/actuation nasal Allergy Symptoms spray,suspension inulin 2 gram chewable tablet 2 g PO DAILY PRN Constipation 03/30/22 12/17/23 Unknown History (Fiber Gummies) glatiramer 20 mg/mL subcutaneous 20 mg subcut DAILY 03/11/23 12/23/23 12/17/23 History syringe (Copaxone) Exam Pertinent Lab Results Pertinent Lab Results: Laboratory Tests 12/16/23 07:20 WBC 6.1 RBC 3.89 L Hgb 11.3 L Hct 34.5 L MCV 88.7 MCH 29.0 MCHC 32.8 RDW 12.6 Plt Count 229 MPV 11.1 Immature Gran % (Auto) 0.2 Neut % (Auto) 59.3 Lymph % (Auto) 32.5 [place] % (Auto) 5.9 Eos % (Auto) 1.1 Baso % (Auto) 1.0 Lymph # (Auto) 2.0 [place] # (Auto) 0.4 Eos # (Auto) 0.1 Baso # (Auto) 0.1 Abs Immat Gran (auto) 0.01 Absolute Neuts (auto) 3.6 Absolute Nucleated RBC 0.000 Nucleated RBC % (auto) 0.0 PT 11.7 INR 1.0 APTT 33.9 Sodium 139 Potassium 3.5 Chloride 107 Carbon Dioxide 27 Anion Gap 9 L BUN 11 Creatinine 0.71 Estim Creat Clear Calc TNP Estimated GFR > 60 Random Glucose 83 Estimat Average Glucose 91 Hemoglobin A1c % 4.8 Calcium 9.0 Iron 112 TIBC 321 % Saturation 35 Unsat Iron Binding 209 Ferritin 19 Total Bilirubin 0.8 AST 17 ALT 11 Alkaline Phosphatase 41 C-Reactive Protein < 0.10 Total Protein 7.3 Albumin 4.1 Triglycerides 83 Cholesterol 167 LDL Cholesterol, Calc 97 HDL Cholesterol 54 Vitamin A 41 Vitamin B1 8 Vitamin B12 551 25-OH Vitamin D Total 16.4 L TSH 1.52 Zinc 64 Blood Type A Positive Antibody Screen NEGATIVE Assessment and Plan Assessment Anesthesia Assessment: Chart Reviewed Final Anesthetic Review Family History of Problems with Anesthesia: No History of Problems with Anesthesia: No Documented by User: Anna Marie Mckeon MD 12/23/23 07:28 [facility] Past Medical History Medical History Postgastrectomy malabsorption BMI 36.0-36.9,adult COVID-19 vaccine series completed Sleep apnea Multiple sclerosis BMI 37.0-37.9, adult Constipation H. pylori infection DJD (degenerative joint disease) Depression Hyperlipidemia Non-insulin dependent type 2 diabetes mellitus BMI 39.0-39.9,adult Pre-op evaluation Elevated testosterone level Secondary amenorrhea Well woman exam with routine gynecological exam Abnormal Pap smear of cervix PCOS (polycystic ovarian syndrome) Asthma Hypertension Migraines Family History Family History Sister Stomach cancer Uterine cancer Mother Diabetes Hypertension Obesity Father No problems noted. Brother No problems noted. Brother Sleep apnea Sister No problems noted. Daughter Asthma Surgical History Surgical History S/P laparoscopic sleeve gastrectomy H/O laparoscopy Hx of section Social History Social History Household Members: Family Household Members Other:: daughter (age 18) Housing: House Are you a primary customer care representative to a significant other at home: No Do you presently have visiting nurse or other home services: No Alcohol intake: former Patient Tobacco Use Status: Never used Tobacco Second Hand Smoke Exposure: No Use of substances other than those prescribed or required for medical reasons: No Are you DNR?: No Advance Directives: No Advance Directives Information Provided: Yes service: No Current occupational status: employed Gender identity: Female Meds Allergies Allergy/AdvReac Type Severity Reaction Status Date / Time No Known Allergies Allergy Verified 12/17/23 10:04 [No Known Allergies*] Home Medications Medication Instructions Recorded Confirmed Last Taken Type albuterol sulfate 90 mcg/actuation 2 puff inhalation Q6H PRN Wheezing 11/05/21 12/17/23 Unknown History aerosol inhaler hydroxyzine HCl 25 mg tablet 25 mg PO TID PRN Anxiety 11/05/21 12/17/23 Unknown History escitalopram oxalate 20 mg tablet 1 tab DAILY 03/03/22 12/23/23 12/21/23 History fluticasone propionate 50 1 - 2 spray intranasal DAILY PRN 03/03/22 12/17/23 Unknown History mcg/actuation nasal Allergy Symptoms spray,suspension inulin 2 gram chewable tablet 2 g PO DAILY PRN Constipation 03/30/22 12/17/23 Unknown History (Fiber Gummies) glatiramer 20 mg/mL subcutaneous 20 mg subcut DAILY 03/11/23 12/23/23 12/17/23 History syringe (Copaxone) Exam Airway Mallampati Class: II TM Dist: >3cm Neck ROM: Full Heart: rrr Lungs: cta Assessment and Plan Assessment Anesthesia Assessment: Anesthesia Plan Discussed Final Anesthetic Review ASA Class: III Final Preanesthetic Review: No Changes in Pt Med Stat, Meds/Allgs Chart Reviewed, Consent Obtained/Reviewed and Anes Risks/Benef Reviewed Patient Risk: Intermediate Procedure Risk: Intermediate Anesthetic Plan Anesthetic Plan: GA Disposition: Standard PACU
[2023-12-23] VITALS (22 sets, daily range): BP systolic 119–146; BP diastolic 61–81; PULSE 73–121; RESP 12–18; TEMP 36.7–36.9; O2SAT 99–100; BMI 23.8
[2023-12-23 06:18] LABS: UPreg QC Valid YES; Urine Pregnancy NEGATIVE (NEGATIVE)
[2023-12-23] MEDS: Lactated Ringers 1,000 ML 100 ML IVCONT (06:28)
--- NOTE | 2023-12-23 07:34 | MHC.SHP ---
Pre-Procedural Eval Section A Date of Service: 12/23/23 The patient is an INPATIENT: No The History & Physical has been completed within 30 days and I have reviewed it.: Yes Section B Chief Complaint: Excessive and redundant skin and subcutaneous tiss Relevant Family History (Specify if Yes): No Relevant Social History: None Present Medications: None Medical History: No relevant PMH History of Previous Operations: Relevant previous surgery/procedure and date(s) (Laparoscopic sleeve gastrectomy) Allergies: Allergies Allergy/AdvReac Type Severity Reaction Status Date / Time No Known Allergies Allergy Verified 12/17/23 10:04 [No Known Allergies*] Review of Systems Sugical H&P ROS: Negative: Constitution, Cardiovascular, Respiratory, Neurological, Psychiatric, Hem-Onc, Allergic/Immunologic, Gastrointestinal, Genitourinary, Musculoskeletal, Integumentary, Endocrine and Eyes/Ears/Nose/Throat Exam Surgical H&P Exam: Normal: HEENT, Normal: Heart, Normal: Lungs, Normal: Abdomen and Normal: Neurological and Significant Findings: Extremities (excess skin bilateral thighs) and Significant Findings: Skin (excess skin of pannus) Plan Diagnosis/Plan: Unchanged I have reviewed the history and physical and performed a pertinent physical examination on my patient. No changes have occurred unless specified. Time Spent With Patient Time: Total time managing care of this patient today ____ minutes.
--- NOTE | 2023-12-23 08:07 | P.BOP_ITS ---
Brief Operative Note Date of Service: 12/23/23 Pre-op diagnosis: Excess skin Post-op diagnosis: same Procedure: PROCEDURE: Panniculectomy and bilateral subcutaneous fat flaps, bilateral thighplasty INDICATION: This a 38 year old female who underwent laparoscopic sleeve gastrectomy on 03/03/2022. She had an excellent result achieving a BMI of 23.5kg/m2 with a total weight loss of 84lbs, or 40% of her TBWL. As a result, she has developed panniculitis which has not resolved despite continuous use of clotrimazole ointment as well as skin irritation. On exam she has extreme skin laxity due to massive weight loss, with the abdominal pannus completely hanging 4cm below the pubis. Panniculectomy was recommended. We discussed the two options for the panniculectomy of using a combined vertical and horizontal incisions or just a horizontal (bikini) incision. It was my recommendation to do only horizontal incision based on her body habitus and skin laxity. The patient agreed with this. Risks and complications were discussed with the patient including bleeding, infection, umbilical loss, flap necrosis, asymmetry, dehiscence, seroma, VTE. The patient understood the risks and was in agreement to proceed with surgery. In addition, as a result of the massive weight loss, she has developed skin laxity in medial thighs. On exam she has extreme skin laxity due to massive weight loss and age and friction between the?inner thighs. Bilateral brachioplasty and thighplasty was recommended. PROCEDURE: The incisions were appropriately marked at the preop area with the patient standing and laying down. After induction of general anesthesia a Guerra catheter and pneumatic compression devices were placed. The patient was prepped and draped in the usual sterile manner and the incisions were marked again and confirmed. The skin was infiltrated with lidocaine and epinephrine. The #10 blade scalpel was used for the large incisions and the #15 blade scalpel for the umbilicus. Cautery was used to divide the subcutaneous tissues until the fascia was identified. Then I used the cautery to separate the pannus from the fascia. The inferior incision was made initially and I mobilized the flap for a several centimeters cephalad to the umbilicus. The umbilicus was preserved as I did not feel there was so much laxity that there would be a need for the umbilicus to be transposed. Therefore the superior incision was made inferior to the umbilicus leaving the umbilicus in situ. With the patient in reflex position I confirmed that the skin flaps were appropriate and would allow for the tissues to come together with reasonable tension. At that point a horizontal incision was made 2 cm below the umbilicus. #10 blade was used for the skin, cautery for the dermis and for the remaining tissues. A subcutaneous fat flap was raised from the upper skin flap in order to fill the space under the skin and support the closure of the two flaps. In addition the inferior flap was mobilized caudally for a few centimeters to create a space for the subcutaneous fat flap as well as relieve tension from the closure. No bleeding was noted anywhere. One Jac drain was placed from the left corner of the horizontal incision across the wound and was secured in place with a silk suture. A total of 7ml of Zynrelef was applied on top of the fascia and under the subcutaneous fat flaps. The subcutaneous fat flap was secured under the inferior flap with several interrupted 3.0 Monocryl sutures. The two flaps were brought together and were attached at the midline of the horizontal incision with a #3.0 Monocryl suture. At that point the umbilicus was properly oriented and was re-approximated to the skin with 8 interrupted 3.0 Monocryl sutures. In a similar fashion the skin flaps were re-approximated with multiple 3.0 Monocryl sutures. The skin was closed in all incisions and umbilicus with 4.0 Monocryl sutures. Steri-strips, xeroform gauzes and gauzes were used to cover the incisions. An abdominal binder was also placed. In a similar manner the thigh incisions were appropriately marked. The legs were flexed at the knees and abducted at the hip level.?The anterior incision was made first. I did not commit to the posterior incision until dissection was completed and I could assess the appropriate location for the posterior incision to prevent excessive tension. Cautery was used to separate the skin from subcutaneous tissues. Careful attention was paid to make sure that the plain of excision was superficial as close to the skin as possible and superior to the fascia. The right thigh skin was 30 cm x 4 cm and the left 28 cm x 4 cm. Skin was closed in two layers using interrupted 3.0 Monocryl sutures for the dermis and 4.0 subcuticular Monocryl suture for the skin. The was awaken and was transferred to the recover room in a stable condition. I was present and performed the entire procedure. Ms. Swenson was the liaison inspection laboratory assistant and Ms. Mcneal the second. Louis Aaron MD, PhD, FACS Surgeon: Ricardo Aaron MD Surgeon: Ricardo Aaron MD Anesthesia: GETA, local and other (7ml Zynrelef) Was an [employer] used for this Procedure?: No [employer]: Marisa Mcneal Estimated blood loss (mL): 10 IV fluids (mL): 1,500 Urine output (mL): 200 Pathology: other (1) bilateral thigh skin, 2) abdominal pannus) Condition: stable Disposition: PACU
[2023-12-23] MEDS: HYDROmorphone HCl 0.5 MG/0.5 ML SYRINGE 0.25 MG IVPUSH ×3 (12:58→13:35)
[2023-12-23] MEDS: ondansetron HCL 4 MG/2 ML VIAL IVPUSH (13:07)
[2023-12-23] MEDS: oxyCODONE HCl Immed Release 5 MG TABLET PO (13:56)
[2023-12-23] MEDS: Metoclopramide HCl 10 MG/2 ML VIAL 5 MG IVPUSH (15:50)
--- NOTE | 2023-12-27 14:28 | W.MHC.F2F ---
Service Date Service Date: 12/27/23 Encounter Date of encounter: 12/23/23 Reasons for Services Signs and symptoms assessed: s/p panniculectomy and bilateral thighplasty on 12/23/23. Needs bedrest and help with dressing changes and drain care. Reason for prison: wound care, postoperative assessment and/or care and other (JOSEY drain, daily dressing changes) MD Overseeing Care: Ricardo Aaron Homebound: Leaving the home is medically contraindicated at this time without the asist of a device and/or another person due th the listed conditions above and below. Reason homebound: bedbound/chairbound and unable to drive Certification: Based on the above findings, I certify that this patient is confined to the home and needs intermittent prison care, physical therapy and/or speech therapy, or continues to need occupational therapy. The patient is under my care, and I have initiated the establishment of the plan of care. The patient will be followed by a physician who will periodically review the plan of care. Time Spent With Patient Time: Total time managing care of this patient today ____ minutes.
== END 2023-12-23 17:26 | disposition home or self-care (01) ==
PROVIDERS: Nurse Practitioner; PCP Registered Nurse; Visit Provider Surgery
PROC: 0JB80ZZ Excision of Abdomen Subcutaneous Tissue and Fascia, Open Approach (ICD-10-PCS; CPT 15830; principal; 2023-12-23 07:30)
PROC: (CPT 15830; 2023-12-23 07:30)
DX: L98.7 Excessive and redundant skin and subcutaneous tissue (principal); M79.3 Panniculitis, unspecified; E65 Localized adiposity; K91.2 Postsurgical malabsorption, not elsewhere classified; Z98.84 Bariatric surgery status; Z90.3 Acquired absence of stomach [part of]; I10 Essential (primary) hypertension; E11.9 Type 2 diabetes mellitus without complications; G35 Multiple sclerosis; J45.909 Unspecified asthma, uncomplicated; E78.5 Hyperlipidemia, unspecified; G47.33 Obstructive sleep apnea (adult) (pediatric); Z79.51 Long term (current) use of inhaled steroids; Z79.899 Other long term (current) drug therapy; Z99.89 Dependence on other enabling machines and devices
CPT/HCPCS: 15830; 15847; 15832; 36415; 80053; 80061; 81025; 82306; 82607; 82728; 83036; 83540; 84425; 84443; 84590; 84630; 85025; 85610; 85730; 86140; 86850; 86900; 86901; 88304; C9088; J0131; J0690; J1100; J1170; J2250; J2405; J2704; J2765; J3010; J3370

== ENCOUNTER → 2023-12-23 06:06 | Outpatient (BNV) | payer OTHER, SELFPAY | PROVIDERS: PCP Registered Nurse; Visit Provider Surgery | DX: L98.7 Excessive and redundant skin and subcutaneous tissue (principal); M79.3 Panniculitis, unspecified; Z90.3 Acquired absence of stomach [part of]; Z98.84 Bariatric surgery status | CPT/HCPCS: 15830; 15832 ==

== ENCOUNTER 2023-12-29 11:02 | Outpatient (AMB) | payer OTHER, SELFPAY ==
--- NOTE | 2023-12-29 11:07 | A.OFFVIS_ITS ---
Intake VS Expanded 12/29/23 11:17 BP 113/65 Blood Pressure Location Rt brachial Blood Pressure Position Sitting Pulse 85 Pulse Source Pulse Oximeter Temp 96.9 F Temperature Source Temporal Artery Scan Pulse Oximetry 99 Oxygen Delivery Method Room Air Intake Visit Reasons: (OV) PO Panni/Thigh 12/23/23 Allergies No Known Allergies [No Known Allergies*] Allergy (Verified 12/29/23 11:18) HPI HPI Comments History of Present Illness Details Patient is a pleasant 30-year-old female returns to the office today in follow-up. She is status post panniculectomy in thigh plasty performed on 12/23/2023. She states overall that she is doing fairly well. Continues on the meal plan as given to her by Dr. Aaron as well as the antibiotics. She notes approximately 25 mL of serosanguineous fluid through the collection bulb. ON LICENSE OF [facility] Medical History Postgastrectomy malabsorption BMI 36.0-36.9,adult COVID-19 vaccine series completed Sleep apnea Multiple sclerosis BMI 37.0-37.9, adult Constipation H. pylori infection DJD (degenerative joint disease) Depression Hyperlipidemia Non-insulin dependent type 2 diabetes mellitus BMI 39.0-39.9,adult Pre-op evaluation Elevated testosterone level Secondary amenorrhea Well woman exam with routine gynecological exam Abnormal Pap smear of cervix PCOS (polycystic ovarian syndrome) Asthma Hypertension Migraines Surgical History S/P laparoscopic sleeve gastrectomy H/O laparoscopy Hx of section Family History Sister Stomach cancer Uterine cancer Mother Diabetes Hypertension Obesity Father No problems noted. Brother No problems noted. Brother Sleep apnea Sister No problems noted. Daughter Asthma Social History Household Members: Family Household Members Other:: daughter (age 18) Housing: House Are you a primary critical care rn to a significant other at home: No Do you presently have visiting nurse or other home services: No Alcohol intake: former Patient Tobacco Use Status: Never used Tobacco Second Hand Smoke Exposure: No service: No Current occupational status: employed Gender identity: Female Female Reproductive History Menstrual Age of Menarche: 12 Physical Exam Vital Signs: Last Vital Signs Temp 96.9 F 12/29/23 11:17 Pulse 85 12/29/23 11:17 BP 113/65 12/29/23 11:17 Pulse Ox 99 12/29/23 11:17 Oxygen Delivery Method Room Air 12/29/23 11:17 Skin Other: Panniculectomy incision is clean, dry, intact. The right thigh incision is also intact although there are some tape blisters anteriorly. Left thigh incision is clean, dry, intact. Assessment & Plan Assessment & Plan (1) S/P panniculectomy: Code(s): Z98.890 - Other specified postprocedural states Plan: Continue current treatment plans. Patient was made aware that she needs to buy Steri-Strips. Continue nursing care through the [facility]. Continue antibiotics and meal plan. Continue abdominal binder. Return to the office in 1 week. (2) S/P thighplasty: Code(s): Z98.890 - Other specified postprocedural states Plan: Same as above although abdominal binder does not apply to the thighs. Coding Level of Care Code Global (00468) Diagnoses S/P panniculectomy Z98.890 S/P thighplasty Z98.890
[2023-12-29 11:17] VITALS: BP 113/65; PULSE 85; TEMP 36.1; O2SAT 99
== END 2023-12-29 11:57 | disposition home or self-care (01) ==
PROVIDERS: PCP Registered Nurse; Visit Provider Physician Assistant Surgical
DX: L98.7 Excessive and redundant skin and subcutaneous tissue (principal); M79.3 Panniculitis, unspecified
CPT/HCPCS: 99024

== ENCOUNTER → 2023-12-29 11:02 | Outpatient (BNVA) | payer OTHER, SELFPAY | PROVIDERS: PCP Registered Nurse; Visit Provider Physician Assistant Surgical | DX: Z48.89 Encounter for other specified surgical aftercare (principal) | CPT/HCPCS: 99212 ==

== ENCOUNTER 2024-01-04 11:47 | Outpatient (AMB) | payer OTHER, SELFPAY ==
--- NOTE | 2024-01-04 11:53 | A.OFFVIS_ITS ---
Intake VS Expanded 01/04/24 11:58 BP 114/72 Blood Pressure Location Rt brachial Blood Pressure Position Sitting Pulse 78 Pulse Source Pulse Oximeter Temp 96.8 F Temperature Source Temporal Artery Scan Pulse Oximetry 100 Oxygen Delivery Method Room Air Intake Visit Reasons: (OV) PO Panni/Thigh 12/23/23 Allergies No Known Allergies [No Known Allergies*] Allergy (Verified 01/04/24 11:59) HPI HPI Comments History of Present Illness Details Patient is a pleasant 30-year-old female who returns to the office today in follow-up. She is status post panniculectomy and thighplasty performed on 12/23/2023. She continues antibiotics and the meal plan as directed by Dr. Aaron. Drainage output remains 20-25 mL per day, down from 30-40 mL per day last week. She offers no significant complaints today. [facility] Medical History Postgastrectomy malabsorption BMI 36.0-36.9,adult COVID-19 vaccine series completed Sleep apnea Multiple sclerosis BMI 37.0-37.9, adult Constipation H. pylori infection DJD (degenerative joint disease) Depression Hyperlipidemia Non-insulin dependent type 2 diabetes mellitus BMI 39.0-39.9,adult Pre-op evaluation Elevated testosterone level Secondary amenorrhea Well woman exam with routine gynecological exam Abnormal Pap smear of cervix PCOS (polycystic ovarian syndrome) Asthma Hypertension Migraines Surgical History (Updated 01/04/24 @ 12:04 by Angélica Morales CMA) S/P thighplasty S/P panniculectomy S/P laparoscopic sleeve gastrectomy H/O laparoscopy Hx of section Family History Sister Stomach cancer Uterine cancer Mother Diabetes Hypertension Obesity Father No problems noted. Brother No problems noted. Brother Sleep apnea Sister No problems noted. Daughter Asthma Social History Household Members: Family Household Members Other:: daughter (age 18) Housing: House Are you a primary personal care home administrator to a significant other at home: No Do you presently have visiting nurse or other home services: No Alcohol intake: former Patient Tobacco Use Status: Never used Tobacco Second Hand Smoke Exposure: No service: No Current occupational status: employed Gender identity: Female Female Reproductive History Menstrual Age of Menarche: 12 Physical Exam Vital Signs: Last Vital Signs Temp 96.8 F 01/04/24 11:58 Pulse 78 01/04/24 11:58 BP 114/72 01/04/24 11:58 Pulse Ox 100 01/04/24 11:58 Oxygen Delivery Method Room Air 01/04/24 11:58 Skin Other: All incisions are clean, dry, intact. Assessment & Plan Assessment & Plan (1) S/P thighplasty: Comment: 12/23/23 Panniculectomy and bilateral subcutaneous fat flaps, bilateral thighplasty Code(s): Z98.890 - Other specified postprocedural states Plan: Patient is doing well, healing nicely. Continue current treatment plans including antibiotics and meal plan. Monitor drain output. Return to clinic 1 week. Coding Level of Care Code Global (71731) Diagnoses S/P thighplasty Z98.890
[2024-01-04 11:58] VITALS: BP 114/72; PULSE 78; TEMP 36; O2SAT 100
== END 2024-01-04 12:46 | disposition home or self-care (01) ==
PROVIDERS: PCP Registered Nurse; Visit Provider Physician Assistant Surgical
DX: L98.7 Excessive and redundant skin and subcutaneous tissue (principal); M79.3 Panniculitis, unspecified
CPT/HCPCS: 99024

== ENCOUNTER → 2024-01-04 11:47 | Outpatient (BNVA) | payer OTHER, SELFPAY | PROVIDERS: PCP Registered Nurse; Visit Provider Physician Assistant Surgical | DX: Z98.890 Other specified postprocedural states (principal) | CPT/HCPCS: 99212 ==

== ENCOUNTER 2024-01-12 11:44 | Outpatient (AMB) | payer OTHER, SELFPAY ==
--- NOTE | 2024-01-12 11:54 | MHC.OFFVISWM ---
Intake VS Expanded 01/12/24 12:04 BP 128/70 Blood Pressure Location Rt brachial Blood Pressure Position Sitting Pulse 90 Pulse Source Pulse Oximeter Temp 95.4 F L Temperature Source Temporal Artery Scan Pulse Oximetry 100 Oxygen Delivery Method Room Air Intake Visit Reasons: (OV) PO Panni/Thigh 12/23/23 Allergies No Known Allergies [No Known Allergies*] Allergy (Verified 01/12/24 12:04) HPI HPI Comments History of Present Illness Details 38-year-old female returns to the office today in follow-up. She underwent a panniculectomy in thigh plasty on 12/23/2023. She reports approximately 15-20 mL of serous fluid from the right-sided Jac drain of her abdomen. She does state that the incisions of her proximal thighs, left greater than right had some areas of dehiscence starting last Wednesday. She states that she texted photos to Dr. Aaron. She denies any significant complaints. She continues on her antibiotics and meal plan. [facility] Medical History Postgastrectomy malabsorption BMI 36.0-36.9,adult COVID-19 vaccine series completed Sleep apnea Multiple sclerosis BMI 37.0-37.9, adult Constipation H. pylori infection DJD (degenerative joint disease) Depression Hyperlipidemia Non-insulin dependent type 2 diabetes mellitus BMI 39.0-39.9,adult Pre-op evaluation Elevated testosterone level Secondary amenorrhea Well woman exam with routine gynecological exam Abnormal Pap smear of cervix PCOS (polycystic ovarian syndrome) Asthma Hypertension Migraines Surgical History S/P thighplasty S/P panniculectomy S/P laparoscopic sleeve gastrectomy H/O laparoscopy Hx of section Family History Sister Stomach cancer Uterine cancer Mother Diabetes Hypertension Obesity Father No problems noted. Brother No problems noted. Brother Sleep apnea Sister No problems noted. Daughter Asthma Social History Household Members: Family Household Members Other:: daughter (age 18) Housing: House Are you a primary caregivers non medical to a significant other at home: No Do you presently have visiting nurse or other home services: No Alcohol intake: former Patient Tobacco Use Status: Never used Tobacco Second Hand Smoke Exposure: No service: No Current occupational status: employed Gender identity: Female Female Reproductive History Menstrual Age of Menarche: 12 Physical Exam Vital Signs: Last Vital Signs Temp 95.4 F L 01/12/24 12:04 Pulse 90 01/12/24 12:04 BP 128/70 01/12/24 12:04 Pulse Ox 100 01/12/24 12:04 Oxygen Delivery Method Room Air 01/12/24 12:04 Skin Other: Panniculectomy incision is clean, dry, intact. No evidence of dehiscence. Along the proximal 3rd of the left thigh incision there are 2 areas of dehiscence measuring approximately 15 by 4 mm and the more proximal open area is 8 x 3 mm. On the right proximal thigh incision is an open area measuring 4 by 3 mm. No evidence of infection of any of the open areas. Assessment & Plan Assessment & Plan (1) S/P panniculectomy: Code(s): Z98.890 - Other specified postprocedural states Plan: Healing well. Continue antibiotics and meal plan. Possible discontinuance of drain at next appointment. (2) S/P thighplasty: Comment: 12/23/23 Panniculectomy and bilateral subcutaneous fat flaps, bilateral thighplasty Code(s): Z98.890 - Other specified postprocedural states Plan: Continue with dressings. Applied a wet-to-dry to the open areas. Steri-Strips to the adjacent dehiscence were placed. Return to clinic 1 week. Coding Level of Care Code Global (52646) Diagnoses S/P panniculectomy Z98.890 S/P thighplasty Z98.890
[2024-01-12 12:04] VITALS: BP 128/70; PULSE 90; TEMP 35.2; O2SAT 100
== END 2024-01-12 13:02 | disposition home or self-care (01) ==
PROVIDERS: PCP Registered Nurse; Visit Provider Physician Assistant Surgical
DX: L98.7 Excessive and redundant skin and subcutaneous tissue (principal); Z48.89 Encounter for other specified surgical aftercare
CPT/HCPCS: 99024

== ENCOUNTER → 2024-01-12 11:44 | Outpatient (BNVA) | payer OTHER, SELFPAY | PROVIDERS: PCP Registered Nurse; Visit Provider Physician Assistant Surgical | DX: Z48.817 Encounter for surgical aftercare following surgery on the skin and subcutaneous tissue (principal); Z98.890 Other specified postprocedural states | CPT/HCPCS: 99212 ==

== ENCOUNTER 2024-01-21 09:41 | Outpatient (AMB) | payer OTHER, SELFPAY ==
--- NOTE | 2024-01-21 09:42 | MHC.OFFVISWM ---
Intake VS Expanded 01/21/24 09:51 BP 122/66 Blood Pressure Location Rt brachial Blood Pressure Position Sitting Pulse 95 Pulse Source Pulse Oximeter Temp 97.9 F Temperature Source Temporal Artery Scan Pulse Oximetry 99 Oxygen Delivery Method Room Air Intake Visit Reasons: (OV) PO Panni/Thigh 12/23/23 Allergies No Known Allergies [No Known Allergies*] Allergy (Verified 01/21/24 09:51) HPI HPI Comments History of Present Illness Details Very pleasant 38-year-old female who returns to the office today in follow-up. She underwent a panniculectomy and thigh plasty on 12/23/2023. She states that she is doing the meal plan and taking her antibiotics. She states that she has had approximately 10-15 mL of serous fluid from the collection bulb over the last 5 days. She has no pain. She has no complaints. [facility] Medical History Postgastrectomy malabsorption BMI 36.0-36.9,adult COVID-19 vaccine series completed Sleep apnea Multiple sclerosis BMI 37.0-37.9, adult Constipation H. pylori infection DJD (degenerative joint disease) Depression Hyperlipidemia Non-insulin dependent type 2 diabetes mellitus BMI 39.0-39.9,adult Pre-op evaluation Elevated testosterone level Secondary amenorrhea Well woman exam with routine gynecological exam Abnormal Pap smear of cervix PCOS (polycystic ovarian syndrome) Asthma Hypertension Migraines Surgical History S/P thighplasty S/P panniculectomy S/P laparoscopic sleeve gastrectomy H/O laparoscopy Hx of section Family History Sister Stomach cancer Uterine cancer Mother Diabetes Hypertension Obesity Father No problems noted. Brother No problems noted. Brother Sleep apnea Sister No problems noted. Daughter Asthma Social History Household Members: Family Household Members Other:: daughter (age 18) Housing: House Are you a primary home health aide caregiver to a significant other at home: No Do you presently have visiting nurse or other home services: No Alcohol intake: former Patient Tobacco Use Status: Never used Tobacco Second Hand Smoke Exposure: No service: No Current occupational status: employed Gender identity: Female Female Reproductive History Menstrual Age of Menarche: 12 Physical Exam Vital Signs: Last Vital Signs Temp 97.9 F 01/21/24 09:51 Pulse 95 01/21/24 09:51 BP 122/66 01/21/24 09:51 Pulse Ox 99 01/21/24 09:51 Oxygen Delivery Method Room Air 01/21/24 09:51 Skin Other: Transverse abdominal incision is healing nicely. Bilateral thigh incisions have several small areas of dehiscence proximally, no evidence of infection. Drain was removed without difficulty. Assessment & Plan Assessment & Plan (1) S/P panniculectomy: Code(s): Z98.890 - Other specified postprocedural states Plan: With thigh plasty on 12/23/2023. Drain removed today. She was encouraged to continue the meal plan and to take the antibiotics for 2 more weeks. She was told no shower for 48 hours and to keep the drain site covered. She will return to the office in 1 week. Coding Level of Care Code Global (67962) Diagnoses S/P panniculectomy Z98.890
[2024-01-21 09:51] VITALS: BP 122/66; PULSE 95; TEMP 36.6; O2SAT 99
== END 2024-01-21 10:23 | disposition home or self-care (01) ==
PROVIDERS: PCP Registered Nurse; Visit Provider Physician Assistant Surgical
DX: L98.7 Excessive and redundant skin and subcutaneous tissue (principal)
CPT/HCPCS: 99024

== ENCOUNTER → 2024-01-21 09:41 | Outpatient (BNVA) | payer OTHER, SELFPAY | PROVIDERS: PCP Registered Nurse; Visit Provider Physician Assistant Surgical | DX: Z98.890 Other specified postprocedural states (principal) | CPT/HCPCS: 99212 ==

== ENCOUNTER 2024-02-02 09:04 | Outpatient (AMB) | payer OTHER, SELFPAY ==
--- NOTE | 2024-02-02 09:17 | MHC.OFFVISWM ---
Intake VS Expanded 02/02/24 09:31 BP 122/58 L Blood Pressure Location Rt brachial Blood Pressure Position Sitting Pulse 83 Pulse Source Pulse Oximeter Temp 97.6 F Temperature Source Temporal Artery Scan Pulse Oximetry 98 Oxygen Delivery Method Room Air Height 5 ft 1.5 in Weight 124 lb 3.2 oz BMI 23.1 Body Fat % 22.7 Body Fat Mass 28.2 Fat Free Mass 96.0 Visceral Fat Rating 3.0 Body Water % 55.2 Body Water Mass 68.6 Muscle Mass/Score 91.0 Basal Metabolic Rate/Score 1,290 Intake Visit Reasons: (OV) PO Panni/Thigh 12/23/23 Allergies No Known Allergies [No Known Allergies*] Allergy (Verified 02/02/24 09:44) HPI HPI Comments History of Present Illness Details Patient is a pleasant 38-year-old female who returns to the office today in follow-up. She is status post panniculectomy and thighplasty performed on 12/23/2023. Overall, she reports she is doing well and offers no significant complaints. She continues to follow the meal plan as recommended by Dr. Aaron. [facility] Medical History Postgastrectomy malabsorption BMI 36.0-36.9,adult COVID-19 vaccine series completed Sleep apnea Multiple sclerosis BMI 37.0-37.9, adult Constipation H. pylori infection DJD (degenerative joint disease) Depression Hyperlipidemia Non-insulin dependent type 2 diabetes mellitus BMI 39.0-39.9,adult Pre-op evaluation Elevated testosterone level Secondary amenorrhea Well woman exam with routine gynecological exam Abnormal Pap smear of cervix PCOS (polycystic ovarian syndrome) Asthma Hypertension Migraines Surgical History S/P thighplasty S/P panniculectomy S/P laparoscopic sleeve gastrectomy H/O laparoscopy Hx of section Family History Sister Stomach cancer Uterine cancer Mother Diabetes Hypertension Obesity Father No problems noted. Brother No problems noted. Brother Sleep apnea Sister No problems noted. Daughter Asthma Social History Household Members: Family Household Members Other:: daughter (age 18) Housing: House Are you a primary director long term care to a significant other at home: No Do you presently have visiting nurse or other home services: No Alcohol intake: former Patient Tobacco Use Status: Never used Tobacco Second Hand Smoke Exposure: No service: No Current occupational status: employed Gender identity: Female Female Reproductive History Menstrual Age of Menarche: 12 Physical Exam Skin Other: Panniculectomy incision healing well. Several small open areas to the proximal thigh incisions bilaterally. No evidence of infection. Assessment & Plan Assessment & Plan (1) S/P panniculectomy: Code(s): Z98.890 - Other specified postprocedural states Plan: Healing nicely. Continue current meal plan. (2) S/P thighplasty: Comment: 12/23/23 Panniculectomy and bilateral subcutaneous fat flaps, bilateral thighplasty Code(s): Z98.890 - Other specified postprocedural states Plan: Apply scant bacitracin, 2 x 2, Medipore tape avoiding tape to the incision. This should be done daily. Continue meal plan. Follow-up in the office in 1 week. Coding Level of Care Code Global (84923) Diagnoses S/P panniculectomy Z98.890 S/P thighplasty Z98.890
[2024-02-02 09:31] VITALS: BP 122/58; PULSE 83; TEMP 36.4; O2SAT 98; BMI 23.1
== END 2024-02-02 09:49 | disposition home or self-care (01) ==
PROVIDERS: PCP Registered Nurse; Visit Provider Physician Assistant Surgical
DX: L98.7 Excessive and redundant skin and subcutaneous tissue (principal); M79.3 Panniculitis, unspecified
CPT/HCPCS: 99024

== ENCOUNTER → 2024-02-02 09:04 | Outpatient (BNVA) | payer OTHER, SELFPAY | PROVIDERS: PCP Registered Nurse; Visit Provider Physician Assistant Surgical | DX: Z48.817 Encounter for surgical aftercare following surgery on the skin and subcutaneous tissue (principal); Z98.890 Other specified postprocedural states | CPT/HCPCS: 99212 ==

== ENCOUNTER 2024-02-11 08:18 | Outpatient (AMB) | payer OTHER, SELFPAY ==
--- NOTE | 2024-02-11 08:25 | MHC.OFFVISWM ---
Intake VS Expanded 02/11/24 08:29 BP 120/76 Blood Pressure Location Rt brachial Blood Pressure Position Sitting Pulse 72 Pulse Source Pulse Oximeter Temp 96.5 F L Temperature Source Tympanic Pulse Oximetry 98 Oxygen Delivery Method Room Air Intake Visit Reasons: (OV) PO Panni/Thigh 12/23/23 Allergies No Known Allergies [No Known Allergies*] Allergy (Verified 02/11/24 08:30) HPI HPI Comments History of Present Illness Details Patient is a pleasant 38-year-old female returns to the office today in follow-up. She is status post panniculectomy in thigh plasty performed on 12/23/2023. She continues to follow the meal plan as recommended by Dr. Aaron. She states that she has had some muscular pain of the lateral thighs on occasion. The previously noted open areas of her thighs are improving although somewhat dry today. She reports she had been putting on bacitracin but then not covering with a bandage. [facility] Medical History Postgastrectomy malabsorption BMI 36.0-36.9,adult COVID-19 vaccine series completed Sleep apnea Multiple sclerosis BMI 37.0-37.9, adult Constipation H. pylori infection DJD (degenerative joint disease) Depression Hyperlipidemia Non-insulin dependent type 2 diabetes mellitus BMI 39.0-39.9,adult Pre-op evaluation Elevated testosterone level Secondary amenorrhea Well woman exam with routine gynecological exam Abnormal Pap smear of cervix PCOS (polycystic ovarian syndrome) Asthma Hypertension Migraines Surgical History S/P thighplasty S/P panniculectomy S/P laparoscopic sleeve gastrectomy H/O laparoscopy Hx of section Family History Sister Stomach cancer Uterine cancer Mother Diabetes Hypertension Obesity Father No problems noted. Brother No problems noted. Brother Sleep apnea Sister No problems noted. Daughter Asthma Social History Household Members: Family Household Members Other:: daughter (age 18) Housing: House Are you a primary wound care specialist to a significant other at home: No Do you presently have visiting nurse or other home services: No Alcohol intake: former Patient Tobacco Use Status: Never used Tobacco Second Hand Smoke Exposure: No service: No Current occupational status: employed Gender identity: Female Female Reproductive History Menstrual Age of Menarche: 12 Physical Exam Vital Signs: Last Vital Signs Temp 96.5 F L 02/11/24 08:29 Pulse 72 02/11/24 08:29 BP 120/76 02/11/24 08:29 Pulse Ox 98 02/11/24 08:29 Oxygen Delivery Method Room Air 02/11/24 08:29 Skin Other: Abdominal incision is intact. Healing nicely. Bilateral thigh incisions have 2 small open areas without evidence of infection although somewhat dry. Assessment & Plan Assessment & Plan (1) S/P thighplasty: Comment: 12/23/23 Panniculectomy and bilateral subcutaneous fat flaps, bilateral thighplasty Code(s): Z98.890 - Other specified postprocedural states Plan: Apply scant bacitracin to the open areas daily covered with dry clean dressing. Continue with the meal plan and return to the office in 2 weeks. (2) S/P panniculectomy: Code(s): Z98.890 - Other specified postprocedural states Plan: Continue with the meal plan and return to the office in 2 weeks. Coding Level of Care Code Global (68340) Diagnoses S/P thighplasty Z98.890 S/P panniculectomy Z98.890
[2024-02-11 08:29] VITALS: BP 120/76; PULSE 72; TEMP 35.8; O2SAT 98
== END 2024-02-11 08:44 | disposition home or self-care (01) ==
PROVIDERS: PCP Registered Nurse; Visit Provider Physician Assistant Surgical
DX: L98.7 Excessive and redundant skin and subcutaneous tissue (principal); M79.3 Panniculitis, unspecified
CPT/HCPCS: 99024

== ENCOUNTER → 2024-02-11 08:18 | Outpatient (BNVA) | payer OTHER, SELFPAY | PROVIDERS: PCP Registered Nurse; Visit Provider Physician Assistant Surgical | DX: Z48.89 Encounter for other specified surgical aftercare (principal) | CPT/HCPCS: 99212 ==

== ENCOUNTER 2024-02-15 10:27 | Outpatient (AMB) | payer OTHER, SELFPAY ==
--- NOTE | 2024-02-15 10:46 | MHC.OFFVISWM ---
Intake VS Expanded 02/15/24 10:47 BP 126/65 Blood Pressure Location Lt brachial Blood Pressure Position Sitting Pulse 87 Pulse Source Pulse Oximeter Temp 96.7 F L Temperature Source Temporal Artery Scan Pulse Oximetry 100 Oxygen Delivery Method Room Air Intake Visit Reasons: o/v s/p panniculectomy Allergies No Known Allergies [No Known Allergies*] Allergy (Verified 02/11/24 08:30) HPI HPI Comments History of Present Illness Details 38-year-old female returns to the office today in follow-up at the request of Dr. Aaron for complaints of a left abdominal incision pain and swelling with some redness. This has been since Wednesday. She had not been taking the antibiotics as recommended. She denied any fever. In the office, Dr. Aaron saw the patient and opened up the left abdominal panniculectomy incision with pressure, approximately 1-2 mL of pus came out and blood. She was instructed to resume her antibiotics and do daily dressings. It was offered for her significant other to help although she states that she can do it herself. [facility] Medical History (Updated 02/15/24 @ 10:59 by SHAYNE Fung) Postgastrectomy malabsorption BMI 36.0-36.9,adult COVID-19 vaccine series completed Sleep apnea Multiple sclerosis BMI 37.0-37.9, adult Constipation H. pylori infection DJD (degenerative joint disease) Depression Hyperlipidemia Non-insulin dependent type 2 diabetes mellitus BMI 39.0-39.9,adult Pre-op evaluation Elevated testosterone level Secondary amenorrhea Well woman exam with routine gynecological exam Abnormal Pap smear of cervix PCOS (polycystic ovarian syndrome) Asthma Hypertension Migraines Surgical History S/P thighplasty S/P panniculectomy S/P laparoscopic sleeve gastrectomy H/O laparoscopy Hx of section Family History Sister Stomach cancer Uterine cancer Mother Diabetes Hypertension Obesity Father No problems noted. Brother No problems noted. Brother Sleep apnea Sister No problems noted. Daughter Asthma Social History Household Members: Family Household Members Other:: daughter (age 18) Housing: House Are you a primary insurance healthcare consultant to a significant other at home: No Do you presently have visiting nurse or other home services: No Alcohol intake: former Patient Tobacco Use Status: Never used Tobacco Second Hand Smoke Exposure: No service: No Current occupational status: employed Gender identity: Female Female Reproductive History Menstrual Age of Menarche: 12 Physical Exam Vital Signs: Last Vital Signs Temp 96.7 F L 02/15/24 10:47 Pulse 87 02/15/24 10:47 BP 126/65 02/15/24 10:47 Pulse Ox 100 02/15/24 10:47 Oxygen Delivery Method Room Air 02/15/24 10:47 Skin Other: 1 cm open area to the far left panniculectomy incision. This was packed with approximately 1 cm of iodoform quarter-inch packing strip, covered with dry clean dressing. Assessment & Plan Assessment & Plan (1) Cellulitis: Code(s): L03.90 - Cellulitis, unspecified Plan: Patient was instructed on packing the wound with quarter-inch packing strip. She does have an appointment tomorrow with our office. She states that she was scheduled to go on a trip to [place] tomorrow however she was advised to avoid doing this given the recent developments. I offered to write her a note to give to the airline explaining the medical necessity of having to cancel the trip at last minute. She is scheduled for follow-up in the office tomorrow, we will change the dressing tomorrow and continue to follow closely. Resume antibiotics Coding Level of Care Code Global (84064) Diagnoses Cellulitis L03.90
[2024-02-15 10:47] VITALS: BP 126/65; PULSE 87; TEMP 35.9; O2SAT 100
== END 2024-02-15 11:01 | disposition home or self-care (01) ==
PROVIDERS: PCP Registered Nurse; Visit Provider Physician Assistant Surgical
DX: L03.90 Cellulitis, unspecified (principal)
CPT/HCPCS: 99024

== ENCOUNTER → 2024-02-15 10:27 | Outpatient (BNVA) | payer OTHER, SELFPAY | PROVIDERS: PCP Registered Nurse; Visit Provider Physician Assistant Surgical | DX: L03.90 Cellulitis, unspecified (principal) | CPT/HCPCS: 99212 ==

== ENCOUNTER 2024-02-16 09:56 | Outpatient (AMB) | payer OTHER, SELFPAY ==
--- NOTE | 2024-02-16 10:01 | A.OFFVIS_ITS ---
Intake VS Expanded 02/16/24 10:06 BP 124/67 Blood Pressure Location Rt brachial Blood Pressure Position Sitting Pulse 89 Pulse Source Pulse Oximeter Temp 97.6 F Temperature Source Temporal Artery Scan Pulse Oximetry 100 Oxygen Delivery Method Room Air Intake Visit Reasons: O/V post panniculectomy Allergies No Known Allergies [No Known Allergies*] Allergy (Verified 02/16/24 10:07) Medication List - Last Reconciled 02/16/24 by SHAYNE Lund albuterol sulfate 90 mcg/actuation 2 puffs inhalation Q6H PRN cephalexin 500 mg PO Q12H clotrimazole 1% 1 appl topical BID docusate sodium (Colace) 100 mg PO DAILY escitalopram oxalate 1 tab DAILY fluticasone propionate 50 mcg/actuation 1 - 2 sprays intranasal DAILY PRN glatiramer (Copaxone) 20 mg subcut DAILY hydroxyzine HCl 25 mg PO TID PRN inulin (Fiber Gummies) 2 grams PO DAILY PRN ogwdwgzbrzej-fge-dnhy-FA-vit K 45 mg iron- 800 mcg-120 mcg (Bariatric Multivitamins) 1 cap PO .daily in evening HPI HPI Comments History of Present Illness Details 38-year-old female returns to the office today for left abdominal incision pain and swelling with some redness; yesterday, Dr. Aaron saw the patient and opened up the left abdominal panniculectomy incision with pressure, approximately 1-2 mL of pus came out and blood. She was instructed to resume her antibiotics and do daily dressings. She felt comfortable performing dressing changes herself. No fevers at home. Taking antibiotics. [facility] Medical History (Updated 02/15/24 @ 10:59 by SHAYNE Fung) Postgastrectomy malabsorption BMI 36.0-36.9,adult COVID-19 vaccine series completed Sleep apnea Multiple sclerosis BMI 37.0-37.9, adult Constipation H. pylori infection DJD (degenerative joint disease) Depression Hyperlipidemia Non-insulin dependent type 2 diabetes mellitus BMI 39.0-39.9,adult Pre-op evaluation Elevated testosterone level Secondary amenorrhea Well woman exam with routine gynecological exam Abnormal Pap smear of cervix PCOS (polycystic ovarian syndrome) Asthma Hypertension Migraines Surgical History S/P thighplasty S/P panniculectomy S/P laparoscopic sleeve gastrectomy H/O laparoscopy Hx of section Family History Sister Stomach cancer Uterine cancer Mother Diabetes Hypertension Obesity Father No problems noted. Brother No problems noted. Brother Sleep apnea Sister No problems noted. Daughter Asthma Social History Household Members: Family Household Members Other:: daughter (age 18) Housing: House Are you a primary rn primary care to a significant other at home: No Do you presently have visiting nurse or other home services: No Alcohol intake: former Patient Tobacco Use Status: Never used Tobacco Second Hand Smoke Exposure: No service: No Current occupational status: employed Gender identity: Female Female Reproductive History Menstrual Age of Menarche: 12 Physical Exam Vital Signs: Last Vital Signs Temp 97.6 F 02/16/24 10:06 Pulse 89 02/16/24 10:06 BP 124/67 02/16/24 10:06 Pulse Ox 100 02/16/24 10:06 Oxygen Delivery Method Room Air 02/16/24 10:06 Const General: cooperative, comfortable and no acute distress Orientation/consciousness: patient oriented x3 GI Other: soft, nontender, nondistended, 1cm area at left lateral edge of incision, clean with pink base, depth about 0.3cm, no undermining or tunneling, no purulence noted, erythema around incision is fading Neuro General: patient oriented x3 Assessment & Plan Assessment & Plan (1) S/P thighplasty: Comment: 12/23/23 Panniculectomy and bilateral subcutaneous fat flaps, bilateral thighplasty Code(s): Z98.890 - Other specified postprocedural states (2) Cellulitis: Code(s): L03.90 - Cellulitis, unspecified (3) S/P panniculectomy: Code(s): Z98.890 - Other specified postprocedural states (4) S/P laparoscopic sleeve gastrectomy: Comment: 03/03/22 Code(s): Z98.84 - Bariatric surgery status Plan Continue daily dressing changes with Iodoform packing covered by DSD. Pt may shower, do not submerge in water. Continue abx. She has a previously scheduled appt February 27, will follow up then and call office with any concerns between appts. Patient is s/p panniculectomy with postop wound infection and is not considered stable at this time. I spent a total of 30 minutes reviewing/updating records, examining the patient and counseling the patient on weight management as detailed above. Coding Level of Care Code Est Pt Level 4 (07287) Diagnoses S/P thighplasty Z98.890 Cellulitis L03.90 S/P panniculectomy Z98.890 S/P laparoscopic sleeve gastrectomy Z98.84
[2024-02-16 10:06] VITALS: BP 124/67; PULSE 89; TEMP 36.4; O2SAT 100
== END 2024-02-16 10:41 | disposition home or self-care (01) ==
PROVIDERS: PCP Registered Nurse; Visit Provider Physician Assistant Surgical
DX: L03.90 Cellulitis, unspecified (principal); L98.7 Excessive and redundant skin and subcutaneous tissue; Z90.3 Acquired absence of stomach [part of]; Z98.84 Bariatric surgery status
CPT/HCPCS: 99024

== ENCOUNTER → 2024-02-16 09:56 | Outpatient (BNVA) | payer OTHER, SELFPAY | PROVIDERS: PCP Registered Nurse; Visit Provider Physician Assistant Surgical | DX: Z48.817 Encounter for surgical aftercare following surgery on the skin and subcutaneous tissue (principal); L76.81 Other intraoperative complications of skin and subcutaneous tissue; L03.311 Cellulitis of abdominal wall; Z79.2 Long term (current) use of antibiotics; Z98.890 Other specified postprocedural states; Z98.84 Bariatric surgery status | CPT/HCPCS: 99212 ==

== ENCOUNTER 2024-02-28 13:34 | Outpatient (AMB) | payer OTHER, SELFPAY ==
[2024-02-28 13:41] VITALS: BP 124/66; PULSE 100; TEMP 36.6; O2SAT 98
--- NOTE | 2024-02-28 13:41 | A.OFFVIS_ITS ---
Intake VS Expanded 02/28/24 13:41 BP 124/66 Blood Pressure Location Rt brachial Blood Pressure Position Sitting Pulse 100 Pulse Source Pulse Oximeter Temp 97.8 F Temperature Source Temporal Artery Scan Pulse Oximetry 98 Oxygen Delivery Method Room Air Intake Visit Reasons: (OV) PO Panni/Thigh 12/23/23 Allergies No Known Allergies [No Known Allergies*] Allergy (Verified 02/28/24 13:43) HPI HPI Comments History of Present Illness Details 30-year-old female with a history of pride niculectomy and thigh plasty performed on 12/23/2023. She was found to have incisional cellulitis along the left side last week. Scant pus was expressed and she has been placing quarter- inch packing strip. This has significantly decreased over the last week. She continues her antibiotics. She denies any pain, fever, chills, redness at the site. [facility] Medical History (Updated 02/15/24 @ 10:59 by SHAYNE Fung) Postgastrectomy malabsorption BMI 36.0-36.9,adult COVID-19 vaccine series completed Sleep apnea Multiple sclerosis BMI 37.0-37.9, adult Constipation H. pylori infection DJD (degenerative joint disease) Depression Hyperlipidemia Non-insulin dependent type 2 diabetes mellitus BMI 39.0-39.9,adult Pre-op evaluation Elevated testosterone level Secondary amenorrhea Well woman exam with routine gynecological exam Abnormal Pap smear of cervix PCOS (polycystic ovarian syndrome) Asthma Hypertension Migraines Surgical History S/P thighplasty S/P panniculectomy S/P laparoscopic sleeve gastrectomy H/O laparoscopy Hx of section Family History Sister Stomach cancer Uterine cancer Mother Diabetes Hypertension Obesity Father No problems noted. Brother No problems noted. Brother Sleep apnea Sister No problems noted. Daughter Asthma Social History Household Members: Family Household Members Other:: daughter (age 18) Housing: House Are you a primary career counselor to a significant other at home: No Do you presently have visiting nurse or other home services: No Alcohol intake: former Patient Tobacco Use Status: Never used Tobacco Second Hand Smoke Exposure: No service: No Current occupational status: employed Gender identity: Female Female Reproductive History Menstrual Age of Menarche: 12 Physical Exam Vital Signs: Last Vital Signs Temp 97.8 F 02/28/24 13:41 Pulse 100 02/28/24 13:41 BP 124/66 02/28/24 13:41 Pulse Ox 98 02/28/24 13:41 Oxygen Delivery Method Room Air 02/28/24 13:41 Skin Other: Bilateral thigh incisions healing well. Panniculectomy incision healing well except for the 1 cm open area along the left lateral edge. Healthy granulation tissue at the base without significant surrounding erythema or warmth. Scant purulent drainage on the quarter-inch packing Assessment & Plan Assessment & Plan (1) S/P thighplasty: Comment: 12/23/23 Panniculectomy and bilateral subcutaneous fat flaps, bilateral thighplasty Code(s): Z98.890 - Other specified postprocedural states Plan: Overall doing well. Continue current meal plan and antibiotics. (2) Cellulitis: Code(s): L03.90 - Cellulitis, unspecified Plan: Continue packing and antibiotics. Return to clinic 1 week. Coding Level of Care Code Global (13648) Diagnoses S/P thighplasty Z98.890 Cellulitis L03.90
== END 2024-02-28 13:55 | disposition home or self-care (01) ==
PROVIDERS: PCP Registered Nurse; Visit Provider Physician Assistant Surgical
DX: L03.90 Cellulitis, unspecified (principal); Z48.817 Encounter for surgical aftercare following surgery on the skin and subcutaneous tissue
CPT/HCPCS: 99024

== ENCOUNTER → 2024-02-28 13:34 | Outpatient (BNVA) | payer OTHER, SELFPAY | PROVIDERS: PCP Registered Nurse; Visit Provider Physician Assistant Surgical | DX: Z48.817 Encounter for surgical aftercare following surgery on the skin and subcutaneous tissue (principal); L03.119 Cellulitis of unspecified part of limb; Z98.890 Other specified postprocedural states; Z79.2 Long term (current) use of antibiotics | CPT/HCPCS: 99212 ==

== ENCOUNTER 2024-03-06 10:26 | Outpatient (AMB) | payer OTHER, SELFPAY ==
--- NOTE | 2024-03-06 10:28 | MHC.OFFVISWM ---
Intake VS Expanded 03/06/24 10:31 BP 114/74 Blood Pressure Location Rt brachial Blood Pressure Position Sitting Pulse 89 Pulse Source Pulse Oximeter Temp 95.9 F L Temperature Source Tympanic Pulse Oximetry 100 Oxygen Delivery Method Room Air Intake Visit Reasons: (OV) PO Panni/Thigh 12/23/23 Allergies No Known Allergies [No Known Allergies*] Allergy (Verified 03/06/24 10:32) HPI HPI Comments History of Present Illness Details Patient is a pleasant 30-year-old female returns to the office today in follow-up. She is status post panniculectomy and thigh plasty on 12/23/2023. She did have a very small open area to the left lateral panniculectomy incision that had previously been packed with quarter-inch packing strip. She just finished her antibiotics on Wednesday. She has no further drainage from the open area. She has no complaints of pain. Her thighs are doing very well and healed nicely. [facility] Medical History (Updated 02/15/24 @ 10:59 by SHAYNE Fung) Postgastrectomy malabsorption BMI 36.0-36.9,adult COVID-19 vaccine series completed Sleep apnea Multiple sclerosis BMI 37.0-37.9, adult Constipation H. pylori infection DJD (degenerative joint disease) Depression Hyperlipidemia Non-insulin dependent type 2 diabetes mellitus BMI 39.0-39.9,adult Pre-op evaluation Elevated testosterone level Secondary amenorrhea Well woman exam with routine gynecological exam Abnormal Pap smear of cervix PCOS (polycystic ovarian syndrome) Asthma Hypertension Migraines Surgical History S/P thighplasty S/P panniculectomy S/P laparoscopic sleeve gastrectomy H/O laparoscopy Hx of section Family History Sister Stomach cancer Uterine cancer Mother Diabetes Hypertension Obesity Father No problems noted. Brother No problems noted. Brother Sleep apnea Sister No problems noted. Daughter Asthma Social History Household Members: Family Household Members Other:: daughter (age 18) Housing: House Are you a primary patient care associate to a significant other at home: No Do you presently have visiting nurse or other home services: No Alcohol intake: former Patient Tobacco Use Status: Never used Tobacco Second Hand Smoke Exposure: No service: No Current occupational status: employed Gender identity: Female Female Reproductive History Menstrual Age of Menarche: 12 Physical Exam Vital Signs: Last Vital Signs Temp 95.9 F L 03/06/24 10:31 Pulse 89 03/06/24 10:31 BP 114/74 03/06/24 10:31 Pulse Ox 100 03/06/24 10:31 Oxygen Delivery Method Room Air 03/06/24 10:31 Skin Other: Thigh incisions healed nicely. Panniculectomy incision healed nicely. The left lateral panniculectomy incision open area has gotten significantly smaller and shallower. No drainage noted. No surrounding erythema, warmth, tenderness. Assessment & Plan Assessment & Plan (1) S/P thighplasty: Comment: 12/23/23 Panniculectomy and bilateral subcutaneous fat flaps, bilateral thighplasty Code(s): Z98.890 - Other specified postprocedural states Plan: Patient doing very well. Continue current meal plan. Continue covering the left lateral panniculectomy open area with a dry clean dressing for 3 more days. Return to clinic 2 weeks Coding Level of Care Code Global (93680) Diagnoses S/P thighplasty Z98.890
[2024-03-06 10:31] VITALS: BP 114/74; PULSE 89; TEMP 35.5; O2SAT 100
== END 2024-03-06 10:51 | disposition home or self-care (01) ==
PROVIDERS: PCP Registered Nurse; Visit Provider Physician Assistant Surgical
DX: L98.7 Excessive and redundant skin and subcutaneous tissue (principal); Z48.817 Encounter for surgical aftercare following surgery on the skin and subcutaneous tissue; Z48.89 Encounter for other specified surgical aftercare
CPT/HCPCS: 99024

== ENCOUNTER → 2024-03-06 10:26 | Outpatient (BNVA) | payer OTHER, SELFPAY | PROVIDERS: PCP Registered Nurse; Visit Provider Physician Assistant Surgical | DX: K90.49 Malabsorption due to intolerance, not elsewhere classified (principal); Z98.890 Other specified postprocedural states; Z90.3 Acquired absence of stomach [part of] | CPT/HCPCS: 99212 ==

== ENCOUNTER 2024-03-20 11:55 | Outpatient (AMB) | payer OTHER, SELFPAY ==
--- NOTE | 2024-03-20 11:56 | A.OFFVIS_ITS ---
VS Expanded 03/20/24 12:00 BP 120/65 Blood Pressure Location Rt brachial Blood Pressure Position Sitting Pulse 79 Pulse Source Pulse Oximeter Temp 96.6 F L Temperature Source Temporal Artery Scan Pulse Oximetry 100 Oxygen Delivery Method Room Air Intake Visit Reasons: (OV) PO Panni/Thigh 12/23/23 Allergies No Known Allergies [No Known Allergies*] Allergy (Verified 03/20/24 12:00) HPI Comments Details: Patient is a pleasant 38-year-old female returns to the office today in follow- up. She is status post panniculectomy and thigh plasty performed on 12/23/2023 and sleeve gastrectomy performed on 03/03/2022. Overall, she states she is doing very well. Offers no complaints at today's visit. She continues to follow a meal plan including 2 premier protein ready to drink shakes and a meal with 4 forks of protein and for forks of vegetables. [facility] Medical History (Updated 02/15/24 @ 10:59 by SHAYNE Fung) Postgastrectomy malabsorption BMI 36.0-36.9,adult COVID-19 vaccine series completed Sleep apnea Multiple sclerosis BMI 37.0-37.9, adult Constipation H. pylori infection DJD (degenerative joint disease) Depression Hyperlipidemia Non-insulin dependent type 2 diabetes mellitus BMI 39.0-39.9,adult Pre-op evaluation Elevated testosterone level Secondary amenorrhea Well woman exam with routine gynecological exam Abnormal Pap smear of cervix PCOS (polycystic ovarian syndrome) Asthma Hypertension Migraines Surgical History S/P thighplasty S/P panniculectomy S/P laparoscopic sleeve gastrectomy H/O laparoscopy Hx of section Family History Sister Stomach cancer Uterine cancer Mother Diabetes Hypertension Obesity Father No problems noted. Brother No problems noted. Brother Sleep apnea Sister No problems noted. Daughter Asthma Social History Household Members: Family Household Members Other:: daughter (age 18) Housing: House Are you a primary pediatric acute care unit nurse to a significant other at home: No Do you presently have visiting nurse or other home services: No Alcohol intake: former Patient Tobacco Use Status: Never used Tobacco Second Hand Smoke Exposure: No service: No Current occupational status: employed Gender identity: Female Female Reproductive History Menstrual Age of Menarche: 12 Physical Exam Vital Signs: Last Vital Signs Temp 96.6 F L 03/20/24 12:00 Pulse 79 03/20/24 12:00 BP 120/65 03/20/24 12:00 Pulse Ox 100 03/20/24 12:00 Oxygen Delivery Method Room Air 03/20/24 12:00 Const General: cooperative and no acute distress Orientation/consciousness: patient oriented x3 Resp Effort & Inspection: normal respiratory effort Auscultation: clear to auscultation bilaterally Cardio Rate: regular rate Rhythm: regular rhythm GI Inspection: Yes normal to inspection and Yes incision (well healed) Palpation (GI): Soft to palpation and no masses Skin Other: Healed incisions from the panniculectomy and thigh plasty. Neuro General: patient oriented x3 Assessment & Plan Assessment & Plan (1) S/P thighplasty: Comment: 12/23/23 Panniculectomy and bilateral subcutaneous fat flaps, bilateral thighplasty Code(s): Z98.890 - Other specified postprocedural states Category: Surgical Plan: Doing well postoperatively. 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 (2) S/P laparoscopic sleeve gastrectomy: Comment: 03/03/22 Code(s): Z98.84 - Bariatric surgery status Category: Surgical Plan: Check yearly labs. Change meal plans slightly to include 1 ready to drink Premier protein shake and 1/2 ready to drink Premier protein shake expanded with 4 oz of unsweetened almond milk and her meal with 4 forks of protein and for forks of vegetables. Return to office 3 months.
[2024-03-20 12:00] VITALS: BP 120/65; PULSE 79; TEMP 35.9; O2SAT 100
== END 2024-03-20 12:12 | disposition home or self-care (01) ==
LOC: HO.HBS 11:55
PROVIDERS: PCP Registered Nurse; Visit Provider Physician Assistant Surgical
DX: Z98.84 Bariatric surgery status (principal)
CPT/HCPCS: 99024

== ENCOUNTER → 2024-03-20 11:55 | Outpatient (BNVA) | payer OTHER, SELFPAY | PROVIDERS: PCP Registered Nurse; Visit Provider Physician Assistant Surgical | DX: Z48.817 Encounter for surgical aftercare following surgery on the skin and subcutaneous tissue (principal); Z98.890 Other specified postprocedural states; Z98.84 Bariatric surgery status | CPT/HCPCS: 99212 ==

== ENCOUNTER 2024-07-26 11:57 | Outpatient (REF) | payer OTHER, SELFPAY ==
[2024-07-28 22:23] LABS: TS Negative Control Passed; TS Panel A 0; TS Panel B 0; TS Positive Control Passed; TSpotTB Negative (Negative)
== END 2024-07-26 11:58 | disposition home or self-care (01) ==
LOC: HO.HHCL 11:57
PROVIDERS: Visit Provider Internal Medicine
DX: Z11.1 Encounter for screening for respiratory tuberculosis (principal)
CPT/HCPCS: 36415; 86481

== ENCOUNTER 2025-08-16 15:32 | Outpatient (REF) | payer MEDICAID, SELFPAY ==
--- OUTSIDE RECORDS SUMMARY | 2025-08-15 16:30 | XMS_ITS | Encounter Summary ---
Author Organization [facility] Address [address] [place] [address] Phone Care Team Providers Care Business Development Coordinator Name Role Phone [facility] Primary Care Provider Reason for Visit * Reason Comments Routine Visit Encounter Details Date Type Department Care Team (Late st Contact Info) Description 08/15/2025 4:30 PM EDT Routine [facility] [address] [place] [address] [place] [address] Nick Clark MD [address] [facility], [address] [place] [address] [email or web address]: [email or web address] Social History Tobacco Use Types [...] 6:37 PM EDT documented in this encounter Plan of Treatment Upcoming Encounters Date Type Department Care Team (Late st Contact Info) Description 09/19/2025 11:00 AM EDT Appointment [facility] [place] [address] [place] [address] Nick Clark MD [address] [place] [address], [address] [place] [id number] [email or web address] 09/19/2025 12:00 PM EDT Routine [facility] [address] [place] [address] Nick Clark MD [address] [place] [address], [address] [address] Scheduled Orders Name Type Priority Associated Diagnoses [...] trimester documented in this encounter Care Teams Business Development Coordinator Relationship Specialty Start Date End [facility] [address] [place] [address] PCP - General 07/14/21 documented as of this encounter Additional Source Comments The information contained in this document represents components of the legal health record. It is not the complete legal health record.[facility]
--- OUTSIDE RECORDS SUMMARY | 2025-08-16 14:45 | XMS_ITS | Encounter Summary ---
Author Organization [employer] Address [address] [place] [address] 7 [place] [address] Care Team Providers Care Public Relations Account Executive Name Role Phone Miriam Damon MD Primary Care Provide r Reason for Visit * Reason Comments Annual Exam Encounter Details Date Type Department Care Team (Late st Contact Info) Description 08/16/2025 2:45 PM EDT Office Visit [facility] [address] [place] [address] Miriam Damon MD [address] [place] [address] Encounter for preventive care (Primary Dx); Mild persistent asthma without complication; Dietary counseling; Exercise counseling; 25 weeks gestation of ; Heartburn; Slow transit constipation Social History Tobacco Use Types Packs/Day Years Used Date Smoking Tobacco: Never Passive Smoke Exposure: Never Smokeless Tobacco: Never Alcohol Use Standard Drinks/Week Comments Never 0 (1 standard drink = 0.6 oz pur e alcohol) Depression Answer Date Recorded Patient Health Questionnaire-9 Score 0 06/05/2024 Patient Health Questionnaire-9 Score 0 06/05/2024 Last PHQ-9: Questionnaire Data Not on file 0 06/05/2024 Housing Stability Answer Date Recorded What is your housing situation today? I have leah kenny 08/08/[address] you li ve. Do you have problems with any of the following? None of the above 08/08/2025 Food Insecurity Answer Date Recorded Within the past 12 months, y ou worried that your food would run out before you got money to buy more: Never True 08/08/2025 Within the past 12 months,th e food you bought just didn't last and you didn't have enough money to get more: Never True 08/2025 Transportation Answer Date Recorded In the past 12 months, has l ack of transportation kept you from medical appts, meetings, work or from getting things needed for daily living? No 08/08/2025 Utilities Answer Date Recorded In the past 12 months, has t he electric, gas, oil or water company threatened to shut off services in your home? No 08/08/2025 Depression Answer Date Recorded Patient Health Questionnaire-2 Score 0 06/05/2024 Internet Access Answer Date Recorded Internet Access Q1 Yes 08/08/2025 Internet Access Q2 Not on file 08/08/2025 Comments Unknown Sex and Gender Information Value Date Recorded Sex Assigned at Female 09/28/2022 10:32 AM EDT Legal Sex Female 10:32 AM EDT Gender Identity Female 09/28/2022 10:32 AM EDT Sexual Orientation Straight 09/28/2022 10 :32 AM EDT documented as of this encounter Last Filed Vital Signs Vital Sign Reading Time Taken Comments Blood Pressure 136/82 08/16/2025 2:45 PM EDT Pulse 72 08/16/2025 2:45 PM EDT Temperature 36.4 C (97.5 F) 08/16/2025 2:45 PM EDT Respiratory Rate 19 08/16/2025 2:45 PM EDT Oxygen Saturation - - Inhaled Oxygen Concentration - - Weight 82.4 kg (181 lb 9.6 oz) 08/16/2025 2:45 P M EDT Height 160 cm (5' 3 ) 08/16/2025 2:45 PM EDT Body Mass Index 32.17 08/16/2025 2:45 PM EDT documented in this encounter Plan of Treatment Scheduled Orders Name Type Priority Associated Diagnoses Orde r Schedule T-SPOT .TB Lab Routine Encounter for preventive care Expected: 08/16/2025 (Approximate), Expires: 08/16/2026 documented as of this encounter Visit Diagnoses Diagnosis Encounter for preventive care- Primary Mild persistent asthma without complication Dietary counseling Dietary surveillance and counseling Exercise counseling 25 weeks gestation of Heartburn Slow transit constipation documented in this encounter Additional Health Concerns Assessment Noted Time PHQ-9 Depression Total Score: 0 06/05/20 24 11:54 AM EDT documented as of this encounter Care Teams Public Relations Account Executive Relationship Specialty Start Date End Date Miriam Damon MD [address] [place] [address] PCP - General Internal Medicine 09/08/23 documented as of this encounter
--- OUTSIDE RECORDS SUMMARY | 2025-08-16 16:53 | XMS_ITS | Encounter Summary ---
Author Organization [facility] Address [address] [place] [phone] Phone Care Team Providers Care Steam And Power Supervisor Name Role Phone [facility], [facility] Primary Care Provider Encounter Details Date Type Department Care Team (Late st Contact Info) Description 10/12/2023 Procedure Pass OR Admitting Dept - Virtual Department [address] [place] [address] Social History Tobacco Use Types Packs/Day Years Used Date Smoking Tobacco: Never Smokeless Tobacco: Never Alcohol Use Standard Drinks/Week Comments Yes 0 (1 standard drink = 0.6 oz pur e alcohol) 1-2 drinks a month Education Answer Date Recorded Are you interested in more education? Not on jessica e 03/26/2023 Are you concerned about learning? Not on file 03/26/2023 No 03/26/2023 No 03/26/2023 Digital Access Answer Date Recorded No 04/27/2023 No 04/27/2023 Reliable internet access at home? Not on file 04/27/2023 Device with a working camera? Not on file Comments No Sex and Gender Information Value Date Recorded Sex Assigned at Female 07/10/2025 6:39 PM EDT Legal Sex Female 9:32 AM EST Gender Identity Female 07/31/2021 11:16 PM EDT Sexual Orientation Not on file documented as of this encounter Functional Status * Calculated C-SSRS Risk Score (Lifetime/Recent) Answer Date of Assessment Author No Risk Indicated 10/12/2023 8:35 AM Annie Galvan RN * [place] Suicide Severity Rating Scale (Screener/Recent Self-Report) Question Answer Date of Assessment Author 2. Non-Specific Active Suici phillip Thoughts (Past 1 Month) No 10/12/2023 8:35 AM Amanda Rapp RN documented as of this encounter Plan of Treatment Upcoming Encounters Date Type Department Care Team (Late st Contact Info) Description 09/19/2025 11:00 AM EDT Appointment [facility] [address] [place] [address] Nick Clark MD [address] [place] [phone] 09/19/2025 12:00 PM EDT Routine [facility] [address] [place] [address] [place] [address] Nick Clark MD [address] [place] [phone] documented as of this encounter Visit Diagnoses Not on filedocumented in this encounter Additional Health Concerns Infection Onset Date Last Indicated Resolved Time CoV-Risk 07/10/2025 07/10/2025 07/21/2025 1:21 AM EDT documented as of this encounter Care Teams Steam And Power Supervisor Relationship Specialty Start Date End Date [facility] [address] [place] [address] PCP - General 07/14/21 documented as of this encounter Additional Source Comments The information contained in this document represents components of the legal health record. It is not the complete legal health record.[facility]
--- OUTSIDE RECORDS SUMMARY | 2025-08-16 16:53 | XMS_ITS | Clinical Summary ---
Author Organization [employer] Address [address] [place] [address] 7 [place] [address] Care Team Providers Care Associate Director Of Development Name Role Phone Miriam Damon MD Primary Care Provide r Allergies No known active allergies Medications sodium chloride ([place] Nasal [place]) 0.65 % nasal sprayIndications:Vi ral syndrome 1-2 sprays on each nostril every 2-3 hours as needed for nasal congestion 30 mL 1 02/04/20 23 Active ketoconazole (NIZOral) 2 % shampoo LATHER ONTO AFFECTED AREA(S), LEAVE IN PLACE FOR 5 MINUTES, THEN RINSE OFF WITH WATER- USE DAILY 10/02/20 22 Active Copaxone 20 MG/ML solution prefilled syringe 03/04/20 23 Active lidocaine (Lidoderm) 5 % patchIndications:Ch ronic bilateral thoracic back pain Apply 1 patch topically in the morning. Remove & discard patch within 12 hours or as directed by MD. 30 patch 1 04/06/20 23 Active cetirizine (ZyrTEC) 10 MG tabletIndications:S easonal allergic rhinitis, unspecified trigger Take 1 tablet (10 mg) by mouth in the morning. 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 100 g 1 04/06/20 23 Active fluticasone (Flonase) 50 MCG/ACT nasal sprayIndications:Se asonal allergic rhinitis, unspecified trigger Administer 2 sprays into each nostril in the morning. Shake gently. Before first use, prime pump. After use, clean tip and replace cap. 16 g 3 04/06/20 23 Active Flovent HFA 220 MCG/ACT inhalerIndications: Mild persistent asthma without complication Inhale 1 puff in the morning and at bedtime. Rinse mouth with water after use to reduce aftertaste and incidence of candidiasis. Do not swallow. 12 g 3 04/06/20 23 Active Ventolin HFA 108 (90 Base) MCG/ACT inhalerIndications: Mild persistent asthma without complication Inhale 2 puffs every 4 (four) hours if needed for wheezing or shortness of breath. 18 g 3 04/06/20 23 Active hydrOXYzine HCl (Atarax) 25 MG tabletIndications:A nxiety Take 1 tablet (25 mg) by mouth every 8 (eight) hours if needed for anxiety. 90 tablet 1 04/06/20 23 Active ketotifen (Zaditor) 0.025 % ophthalmic solutionIndications :Allergic conjunctivitis of both eyes ADMINISTER 1 DROP INTO BOTH EYES EVERY 12 (TWELVE) HOURS IF NEEDED (ITCHY RED EYES). 10 mL 06/07/20 23 Active escitalopram (Lexapro) 20 MG tabletIndications:D epression, unspecified depression type TOME AREN TABLETA TODOS LOS SALAS EN LA TOM BEANANA 90 tablet 1 10/04/20 23 Active famotidine (Pepcid) 20 MG tabletIndications:G astroesophageal reflux disease, unspecified whether esophagitis present Take 1 tablet (20 mg) by mouth 2 times daily. 60 tablet 11 09/20/20 24 025 Active bismuth subsalicylate (Pepto Bismol) 262 MG chewable tabletIndications:V iral gastroenteritis One tab po four times a day for 14 days 56 tablet 12/19/19 25 Active ibuprofen 800 MG tablet Take 1 tablet (800 mg) by mouth 3 times daily. 90 tablet 2 06/25/20 25 025 Active docusate sodium (Colace) 100 MG capsuleIndications: Slow transit constipation Take 1 capsule (100 mg) by mouth Once per day. 30 capsule 08/16/20 25 025 Active famotidine (Pepcid) 20 MG tabletIndications:H eartburn Take 1 tablet (20 mg) by mouth 2 times daily. 60 tablet 2 08/16/20 25 026 Active Active Problems Problem Noted Date Diagnosed Date 25 weeks gestation of 08/16/2025 Heartburn 08/16/2025 Constipation 08/16/2025 Viral gastroenteritis 12/19/2024 Assessment & Plan (12/19/2024 4:05 PM EST): COVID and Flu negative. Likely viral gastroenteritis. Exam benign. -no evidence of dehydration on exam -no evidence of acute abdomen -supportive care with fluids -will prescribe some Pepto bismol -given note for work Encounter for preventive care 07/26/2024 Assessment & Plan (07/26/2024 11:51 AM EDT): See HPI Tuberculosis screening 07/26/2024 Atypical squamous cells of u ndetermined significance on cytologic smear of cervix (ASC-US) 07/26/2024 Status post bariatric surgery 06/16/2023 Overview (06/16/2023): Gastric sleep procedure Excess skin after procedure Weight mgmt appt 06/16/23 Seasonal allergic rhinitis 04/06/2023 Dyslipidemia 03/08/2023 Multiple sclerosis 03/08/2023 Overview (09/01/2023): MS: care managed by [facility] Neurology. Plans for adjusted medication Last appt 09/16/22 MRI brain with and w/o contrast ordered Aug 2022 Assessment & Plan (09/20/2024 4:35 PM EDT): Stable Continue to follow with specialist Assessment & Plan (07/26/2024 11:52 AM EDT): Being follow by neurology [facility] Assessment & Plan (08/31/2023 2:04 PM EDT): F/u with specialist Polycystic ovary syndrome 03/08/2023 Chronic bilateral thoracic back pain 03/08/2023 Gastroesophageal reflux disease 03/10/2022 Assessment & Plan (09/20/2024 4:35 PM EDT): I advise patient to avoid NSAIDs, spicy and acid food, I advise to eat at the same time every day, I advise to elevate the head of the bed and take medications as prescribe I discontinue omeprazole for now, I put prescription in for famotidine if needed Polyp of corpus uteri 11/14/2021 Elevated testosterone level in female 09/17/2021 Overview (03/08/2023): Free testosterone 2.6 (upper limit normal) and clitoromegaly. Has appointment with RE at [facility] in November Last Assessment & Plan: Will start OCPs while awaiting consult Hirsutism 09/17/2021 Overview (03/08/2023): Will start spironolactone Female fertility problem 01/24/2021 Overview (08/31/2023): The patient reports conceiving twice without issue. Second was a demise and she had a D and C. Had a pelvic laparoscopy and was told that tubes were swollen. Had a procedure done. Normal laparoscopy 2020 Reports she is starting IVF at [facility] in [facility]. They have payment plans Assessment & Plan (08/31/2023 2:04 PM EDT): She needs labs prior to going for treatment Will order today Will mail to pt so she can take results to fertility center F/u PRN Cervical radiculopathy 12/20/2018 Hyperinsulinism 12/20/2018 Mild persistent asthma 12/20/2018 Assessment & Plan (09/20/2024 4:34 PM EDT): Stable c/w same interventions Obstructive sleep apnea syndrome 07/19/2018 Acanthosis nigricans 10/12/2017 Essential hypertension 10/12/2017 Assessment & Plan (09/20/2024 4:34 PM EDT): Stable c/w same interventions, no need for medications for now Migraine 10/12/2017 Encounters Date Type Department Care Team Description 08/16/2025 2:45 PM EDT Office Visit [facility] [address] [place] [phone] Miriam Damon MD Encounter for preventive care (Primary Dx); Mild persistent asthma without complication; Dietary counseling; Exercise counseling; 25 weeks gestation of ; Heartburn; Slow transit constipation 08/16/2025 Travel 08/16/2025 Telephone [facility] [address] [place] [phone] Miriam Damon MD Chart Prep 08/09/2025 Travel 08/08/2025 Patient Outreach [facility] [address] [place] [phone] Miriam Damon MD Pre-visit Planning (SDOH screening negative and tobacco screening negative) 06/25/2025 10:20 AM EDT Office Visit [facility] [address] [place] [phone] Layla Restrepo MD Strep pharyngitis 06/25/2025 Travel from Last 3 Months Immunizations Immunization Administration Dates Next Due Influenza Injectable Quadriv alant Preservative Free IIV4 MDCK 11/10/2021 Moderna Covid-19 Vaccine 12+ 11/10/2021 Tdap 11/14/2021 Social History Tobacco Use Types Packs/Day Years Used Date Smoking Tobacco: Never Passive Smoke Exposure: Never Smokeless Tobacco: Never Tobacco Cessation:Counseling Given: Not Answered Alcohol Use Standard Drinks/Week Comments Never 0 [...] Orientation Straight 09/28/2022 10 :32 AM EDT Last Filed Vital Signs Vital Sign Reading Time Taken Comments Blood Pressure 136/82 08/16/2025 2:45 PM EDT Pulse 72 08/16/2025 2:45 PM EDT Temperature 36.4 C (97.5 F) 08/16/2025 2:45 PM EDT Respiratory Rate 19 08/16/2025 2:45 PM EDT Oxygen Saturation 98% 06/25/2025 9:15 AM EDT Inhaled Oxygen Concentration - - Weight 82.4 kg (181 lb 9.6 oz) 08/16/2025 2:45 P M EDT Height 160 cm (5' 3 ) 08/16/2025 2:45 PM EDT Body Mass Index 32.17 08/16/2025 2:45 PM EDT Plan of Treatment Health Maintenance Due Date Last Done Comments Alcohol/Substance Use Screening 1997 Family Planning (PISQ) 2000 HPV Vaccines (1 - 3-dose series) 2000 Hepatitis B Vaccines (1 of 3 - 19+ 3-dose series) 2004 Pneumococcal Vaccine: Pediatrics (0 to 5 Years) and At-Risk Patients (6 to 49) Years (1 of 2 - PCV) 2004 Cervical Cancer Screening 08/05/2024 HPV/Cotest 08/05/2024 08/05/2023, 03/15/2019, 12/23/2017 Pap Smear 08/05/2024 08/05/2023, 03/15/2019 Depression Screening 06/05/2025 06/05/2024, 06/05/2024 COVID-19 Vaccine (4 - 2024-2 6 season) 2025 11/10/2021, 04/15/2021, 03/18/2021 Influenza Vaccine (#1) 2025 11/10/2021 Tobacco Screening 09/20/2025 09/20/2024 SDOH Screening 08/08/2026 08/08/2025 Disability Screening 08/16/2026 08/16/2025 Lipid Panel 12/16/2028 12/16/2023, 11/19/2023 DTaP/Tdap/Td Vaccines (2 - T d or Tdap) 11/14/2031 11/14/2021 Zoster Vaccines (1 of 2) 2035 RSV Patients and Patients Aged 60 years or older (1 - 1-dose 75+ series) 2060 HIV Screening Completed 07/26/2023 Hepatitis C Screening Completed 07/26/2023 HIB Vaccines Aged Out No longer eligi ble based on patient's age to complete this topic Hepatitis A Vaccines Aged Out No long er eligible based on patient's age to complete this topic IPV Vaccines Aged Out No longer eligi ble based on patient's age to complete this topic Meningococcal B Vaccine Aged Out No l onger eligible based on patient's age to complete this topic Meningococcal Vaccine Aged Out No tori wallace eligible based on patient's age to complete this topic RSV under 20 months Aged Out No longe r eligible based on patient's age to complete this topic Rotavirus Vaccines Aged Out No longer eligible based on patient's age to complete this topic Procedures Procedure Name Priority Date/Time Associated Diagnosis Comments POCT RAPID STREP A Routine 06/25/2025 9: 17 AM EDT Strep pharyngitis POCT RAPID COVID ANTIGEN Routine 06/25/2025 9:17 AM EDT Strep pharyngitis LIPID PANEL, STANDARD Routine 12/16/2023 7:20 AM EST HM PAP/HPV Routine 08/05/2023 HEPATITIS PANEL, GENERAL Routine 07/26/2023 1:30 PM EDT Female fertility problem HIV ANTIBODY/ANTIGEN ([place] DPH) Routine 07/26/2023 1:30 PM EDT from Last 3 Months or Most Recently Relevant to Health Maintenance Results * POCT Rapid COVID Ag (06/25/2025 9:17 AM EDT) [facility] Rapid COVID Ag Negative Swab 06/25/2025 9:17 AM EDT us Layla Restrepo MD POINT OF CARE TEST ENTER/EDIT OR DERABLES Final Result * (ABNORMAL) POCT rapid strep A manually resulted (06/25/2025 9:17 AM EDT) [facility] Rapid Strep A Screen Positive( A) Negative, None Detected Swab 06/25/2025 9:17 AM EDT us Layla Restrepo MD POINT OF CARE TEST ENTER/EDIT OR DERABLES Final Result * Lipid Panel, Standard (12/16/2023 7:20 AM EST) [facility] Triglycerides 83 <150 mg/dL [facility] Comment:Desirable Triglyceri de: less than 150 mg/dLBorderline High Triglyceride 150-199 mg/dLHigh Triglyceride: 200-499 mg/dLVery High Triglyceride: greater than or equal to 5OO mg/dL Cholesterol 167 <200 mg/dL [facility] Comment:Desirable Cholestero l: less than 200 mg/dLBorderline High Cholesterol: 200-239 mg/dLHigh Cholesterol: greater than 239 mg/dL LDL Cholesterol Calculated 97 <100 mg/dL [facility] Comment:Desirable LDL: less than 100 mg/dLNear Optimal/Above Optimal LDL: 110- 129 mg/dLBorderline High LDL: 130-159 mg/dLHigh LDL: 160-189 mg/dLVery High LDL: greater than or equal to 190 mg/dL HDL Cholesterol 54 >40 mg/dL [facility] Comment:Desirable HDL: great er than 40 mg/dL Note: This HDL assay may give artificially low results in patients with liver disease. 12/16/2023 7:20 AM EST 12/16/2023 7:22 AM EST Generic External Data Provider LAB BLOOD ORDERAB LES Final Result [facility] [address] [place] [phone] * HM PAP/HPV (08/05/2023) Pap Smear 1. NILM 1. NILM HPV Not Detected Undetected, Indeterminat e, Quantitative , Not Detected Historical Provider HEALTH MAINTENANCE Final Result * HIV Ab/Ag ([facility]) (07/26/2023 1:30 PM EDT) HIV AB/AG Nonreactive Nonreactive [facility] Comment:HIV-1 p24 Ag and/or HIV-1/HIV-2 Ab not detected.A test result that is nonreactive does not exclude thepossibility of exposure to or infection with HIV-1 and/orHIV-2. Nonreactive results in this assay for individualswith prior exposure to HIV-1 and/or HIV-2 may be due toantigen and antibody levels that are below the limit ofdetection of this assay.[employer] HIV Ag/Ab Combo assay result andsupplemental assay results should be interpreted inconjunction with the patient's clinical presentation,history and other laboratory results. If the results areinconsistent with clinical evidence, additional testing issuggested to confirm the result. 07/26/2023 1:30 PM EDT 07/26/2023 3:55 PM EDT us Lisa Bull [employer] SCOUT LAB BLOOD ORDERABLES Final Result Performing Organization Address [facility] Co de Phone Number [facility] [address] [place] [address] [phone] * Hepatitis Panel, General (07/26/2023 1:30 PM EDT) Hepatitis A IgM Nonreactive Nonreactive [facility] Comment:IgM antibodies to GARCIA V not detected; does not exclude earlyacute or recovered HAV infection. ~Hepatitis B Surface Antibody REACTIVE Nonreactive [facility] Comment:REACTIVE: > 11.99 mI U/mL Hepatitis B Core Antibody Nonreactive Nonreactive [facility] Hepatitis C Antibody Nonreactive Nonreactive [facility] Comment:Antibodies to HCV no t detected; does not exclude early acuteHCV infection. Hepatitis B Surface Ag Negative Negative [facility] Blood 07/26/2023 1:30 PM EDT 07/26/2023 3:55 PM EDT Lisa Bull [employer] SCOUT LAB BLOOD ORDERABLES Final Result Performing Organization Address [facility] Co de Phone Number [facility] [address] [place] [phone] from Last 3 Months or Most Recently Relevant to Health Maintenance Insurance [facility] , [address] [place] [address] Care Teams Associate Director Of Development Relationship Specialty Start Date End Date Miriam Damon MD [address] [place] [phone] PCP - General Internal Medicine 09/08/23
--- OUTSIDE RECORDS SUMMARY | 2025-08-16 16:53 | XMS_ITS | Encounter Summary ---
Author Organization [employer] Address [address] [place] [address] 7 [place] [address] Care Team Providers Care Director Of Materials Management Name Role Phone Lisa Bull COFFEE SHOP AIDE Primary Care Provider Miriam Pena MD Primary Care Provide r Reason for Visit * Reason Onset Date Comments Reasonable Accommodation Request 11/12/2022 The pt called to check the status of a reasonable accommodation request from [employer]. I verified with the forms nurse, and informed the pt that the form was completed, and will be faxed to [employer] today. Lab Orders 11/12/2022 Patient states s he called to request a lab order because she is getting in [place] and leaving town on 11/24/2022. Please call patient at [phone]. Encounter Details Date Type Department Care Team ([facility] Contact Info) Description 11/12/2022 Telephone [facility] [address] [place] [address] Lisa Bull FNP Reasonable Accommodation Request (The pt called to check the status of a reasonable accommodation request from [employer]. I verified with the forms nurse, and informed the pt that the form was completed, and will be faxed to [employer] today. ); Lab Orders (Patient states she called to request a lab order because she is getting in [place] and leaving town on 11/24/2022. Please call patient at [phone]. ) Social History Tobacco Use Types Packs/Day Years Used Date Smoking Tobacco: Never Assessed Comments Unknown Sex and Gender Information Value Date Recorded Sex Assigned at Female 09/28/2022 10:32 AM EDT Legal Sex Female 10:32 AM EDT Gender Identity Female 09/28/2022 10:32 AM EDT Sexual Orientation Straight 09/28/2022 10 :32 AM EDT documented as of this encounter Miscellaneous Notes * Telephone Encounter - Tania Shipley LPN - 12/04/2022 8:06 AM EST Sally MUNOZI TC to [employer] follow up on alternative accommodations, left message for [facility]lin [phone] that we agree with trying alternative accommodations for patient and see if this works for them. If he has any questions he can call my office back to discuss. * Telephone Encounter - Shanique Mak RN - 12/03/2022 2:35 PM EST Please review previous encounter regarding reasonable accomodation. I am very well aware that lab requests are not handled in forms. * Telephone Encounter - Arleen Carbajal - 11/18/2022 9:53 AM EST Patient walked in stating she she called to request a lab order because she is getting in [place] and leaving [facility] on 11/24/2022. Please call patient at [phone]. * Telephone Encounter - Cooper Schilling - 11/16/2022 1:51 PM EST Tc from [facility] with [facility] requesting a call back for the alternative solution . He statesthe washer and dryer are in a separate room and would like to know if a push cart would be a valid alternative accomodation for pt . Please contact Carlin at [phone] Ext [phone] documented in this encounter Plan of Treatment Not on file documented as of this encounter Visit Diagnoses Not on filedocumented in this encounter Care Teams Director Of Materials Management Relationship Specialty Start Date End Date Lisa Bull FNP PCP - General Family Medicine 09/22/21 09/07/23 Miriam Damon MD [address] [place] [address] PCP - General Internal Medicine 09/08/23 documented as of this encounter
--- OUTSIDE RECORDS SUMMARY | 2025-08-16 16:53 | XMS_ITS | Encounter Summary ---
Author Organization [employer] Address [address] [place] [address] 7 [place] [address] Care Team Providers Care Plant Etiologist Name Role Phone Lisa Bull Primary Care Provider Miriam Pena MD Primary Care Provide r Encounter Details Date Type Department Care Team ([facility] Contact Info) Description 04/23/2023 Abstract [employer] [facility] [address] [place] [address] Lisa Bull FNP Social History Tobacco Use Types Packs/Day Years Used Date Smoking Tobacco: Never Passive Smoke Exposure: Never Smokeless Tobacco: Never Comments Unknown Sex and Gender Information Value Date Recorded Sex Assigned at Female 09/28/2022 10:32 AM EDT Legal Sex Female 10:32 AM EDT Gender Identity Female 09/28/2022 10:32 AM EDT Sexual Orientation Straight 09/28/2022 10 :32 AM EDT COVID-19 Exposure Response Date Recorded In the last 10 days, have yo u been in contact with someone who was confirmed or suspected to have Coronavirus/COVID-19? No / Unsure 04/05/2023 9:51 AM EDT documented as of this encounter Plan of Treatment Not on file documented as of this encounter Visit Diagnoses Not on filedocumented in this encounter Care Teams Plant Etiologist Relationship Specialty Start Date End Date Lisa Bull FNP PCP - General Family Medicine 09/22/21 09/07/23 Miriam Damon MD [address] [place] [address] PCP - General Internal Medicine 09/08/23 documented as of this encounter
--- OUTSIDE RECORDS SUMMARY | 2025-08-16 16:53 | XMS_ITS | Encounter Summary ---
Author Organization [facility] Address [address] [facility] [address] [facility] [address] [place] [address] Phone Care Team Providers Care Associate Account Executive Name Role Phone [facility], [facility] Primary Care Provider Encounter Details Date Type Department Care Team (Late st Contact Info) Description 08/15/2025 Telephone [facility] [address] [place] [address] Nick Clark MD [address] [facility], [address] [place] [address] [email or web address] Social History Tobacco Use Types Packs/Day Years [...] on file documented as of this encounter Progress Notes * Nick Clark MD - 08/15/2025 4:58 PM EDT Ruma will need q 4 week growth scans for twins. She will need one soon and then 4 weeks after that. Orders are in. Because of twins, growth scans should be with MFM documented in this encounter Plan of Treatment Upcoming Encounters Date Type Department Care Team (Late st Contact Info) Description 09/19/2025 11:00 AM EDT Appointment [facility] [place], OB [address] [place] [address] [place] [address] Nick Clark MD [address] [place] [address], [address] [address] [email or web address] 09/19/2025 12:00 PM EDT Routine [facility] [address] [place] [address] [address] [place] [address] Nick Clark MD [address] [place] [address], [address] [address] documented as of this encounter Visit Diagnoses Not on filedocumented in this encounter Care Teams Associate Account Executive Relationship Specialty Start Date End Date [facility] [address] [place] [address] PCP - General 07/14/21 documented as of this encounter Additional Source Comments The information contained in this document represents components of the legal health record. It is not the complete legal health record.[facility]
--- OUTSIDE RECORDS SUMMARY | 2025-08-16 16:53 | XMS_ITS | Encounter Summary ---
Author Organization [facility] Address [address] [place] [address] Phone Care Team Providers Care Rn Wound Name Role Phone [facility], [facility] Primary Care Provider Encounter Details Date Type Department Care Team (Late st Contact Info) Description 06/10/2023 Transcribe Orders [facility] [address] [place] [address] [facility], [facility], [address] [place], [place] [id number] Social History Tobacco Use Types Packs/Day Years [...] on file documented as of this encounter Plan of Treatment Upcoming Encounters Date Type Department Care Team (Late st Contact Info) Description 09/19/2025 11:00 AM EDT Appointment [facility] [place], OB [address] [place] [address] [place] [address] Nick Clark MD [address] [place] [address], [address] [address] [email or web address] 09/19/2025 12:00 PM EDT Routine [facility] [address] [place] [address] [place] [address] Nick Clark MD [address] [place] [address] [email or web address] documented as of this encounter Visit Diagnoses Not on filedocumented in this encounter Additional Health Concerns Infection Onset Date Last Indicated Resolved Time CoV-Risk 07/10/2025 07/10/2025 07/21/2025 1:21 AM EDT documented as of this encounter Care Teams Rn Wound Relationship Specialty Start Date End Date [facility] [address] [place] [address] PCP - General 07/14/21 documented as of this encounter Additional Source Comments The information contained in this document represents components of the legal health record. It is not the complete legal health record.[facility]
--- OUTSIDE RECORDS SUMMARY | 2025-08-16 16:53 | XMS_ITS | Encounter Summary ---
Author Organization [employer] Address [address] [place] [address] 7 [place] [address] Care Team Providers Care Hand Spring Repairer Name Role Phone Miriam Damon MD Primary Care Provide r Reason for Visit * Reason Onset Date Comments Chart Prep 08/16/2025 Encounter Details Date Type Department Care Team ([facility] st Contact Info) Description 08/16/2025 Telephone [facility] [address] [place], [place] [phone] Miriam Damon MD [address] [place], [place] [phone] Chart Prep Social History Tobacco Use Types Packs/Day Years [...] encounter Miscellaneous Notes * Telephone Encounter - Sarah May MA - 08/16/2025 7:53 AM EDT Chart Prep Labs: done Images: done Referrals: not applicable Vaccines due: Covid, Flu, PCV20, Hep B, and HPV Screenings: pap smear and LMP Overdue care gaps: SBIRT, PHQ-9, MELVIN-7, and Disability screen documented in this encounter Plan of Treatment Not on file documented as of this encounter Visit Diagnoses Not on filedocumented in this encounter Additional Health Concerns Assessment Noted Time PHQ-9 Depression Total Score: 0 06/05/20 24 11:54 AM EDT documented as of this encounter Care Teams Hand Spring Repairer Relationship Specialty Start Date End Date Miriam Damon MD [address] [place] [address] PCP - General Internal Medicine 09/08/23 documented as of this encounter
--- OUTSIDE RECORDS SUMMARY | 2025-08-16 16:53 | XMS_ITS | Encounter Summary ---
Author Organization [employer] Address [address] [place] [address] 7t [place] [address] Care Team Providers Care Vtc Technician Name Role Phone Miriam Damon MD Primary Care Provide r Reason for Visit * Reason Comments Med Refill Encounter Details Date Type Department Care Team ([facility] st Contact Info) Description 10/16/2023 Refill [facility] [place] [address] [place] [address] Iman Longoria FNP Social History Tobacco Use Types Packs/Day Years Used Date Smoking Tobacco: Never Passive Smoke Exposure: Never Smokeless Tobacco: Never Housing Stability Answer Date Recorded What is your housing situation today? I have leah kenny 09/14/[address] you li ve. Do you have problems with any of the following? None of the above 09/14/2023 Food Insecurity Answer Date Recorded Within the past 12 months, y ou worried that your food would run out before you got money to buy more: Never True 09/14/2023 Within the past 12 months,th e food you bought just didn't last and you didn't have enough money to get more: Never True Transportation Answer Date Recorded In the past 12 months, has l ack of transportation kept you from medical appts, meetings, work or from getting things needed for daily living? No 09/14/2023 Utilities Answer Date Recorded In the past 12 months, has t he electric, gas, oil or water company threatened to shut off services in your home? No 09/14/2023 Comments Unknown Sex and Gender Information Value [...] on filedocumented in this encounter Care Teams Vtc Technician Relationship Specialty Start Date End Date Miriam Damon MD [address] [place] [address] PCP - General Internal Medicine 09/08/23 documented as of this encounter
--- OUTSIDE RECORDS SUMMARY | 2025-08-16 16:53 | XMS_ITS | Clinical Summary ---
Author Organization [address] [place] [address] Address [address] [place] [address] Phone Care Team Providers Care Operator Electronic Warfare Name Role Phone Unavailable Primary Care Provider Unavailabl e Allergies No known active allergies Medications elagolix (Orilissa) 150 mg tablet Take 150 mg by mouth 1 (one) time each day. Active folic acid (FOLVITE) 1 mg tablet Take by mouth 1 (one) time each day. Active OXcarbazepine (TRILEPTAL) 300 mg/5 mL (60 mg/mL) suspension Take by mouth 2 (two) times a day. Active vitamin iron fum-folic acid 27-0.8 mg per tablet Take 1 tablet by mouth 1 (one) time each day. Active Encounters Date Type Department Care Team Description 05/25/2025 2:30 PM EDT Office Visit [facility] [address] [facility] [address] [place] [address] Francisco Vazquez MD MS (multiple sclerosis) ([facility] V24, CMS/[facility] V28) (Primary Dx) from Last 3 Months Surgical History Surgery Date Site/Laterality Comments SECTION PROCEDURE: SECTION BARIATRIC SURGERY PROCEDURE:BARIATRIC SURGERY Medical History Medical History Date Comments Asthma DX:Asthma Social History Tobacco Use Types Packs/Day Years Used Date Smoking Tobacco: Never Assessed Comments Unknown Sex and Gender Information Value Date Recorded Sex Assigned at Not on file Legal Sex Female 8:29 AM EST Gender Identity Not on file Sexual Orientation Not on file Obstetrics History Last Filed Vital Signs Vital Sign Reading Time Taken Comments Blood Pressure 129/81 05/25/2025 2:35 PM EDT Pulse 80 05/25/2025 2:35 PM EDT Temperature 36.4 C (97.6 F) 05/25/2025 2:35 PM EDT Respiratory Rate - - Oxygen Saturation 99% 05/25/2025 2:35 PM EDT Inhaled Oxygen Concentration - - Weight 63.5 kg (140 lb) 05/25/2025 2:35 PM EDT Height 160 cm (5' 3 ) 05/25/2025 2:35 PM EDT Body Mass Index 24.8 05/25/2025 2:35 PM EDT Plan of Treatment Upcoming Encounters Date Type Department Care Team (Late st Contact Info) Description 09/18/2025 2:00 PM EDT Office Visit [facility] [address] [place] [id number] Blanka Root PA [address] [place] [address] Health Maintenance Due Date Last Done Comments Hepatitis B Vaccines (1 of 3 - 19+ 3-dose series) 2004 Pneumococcal Vaccine: Pediatrics (0 to 5 Years) and At-Risk Patients (6 to 49 Years) (1 of 2 - PCV) 2004 Cervical Cancer Screening: P ap Smear 2006 HIV Screening 11/01/2022 Social Influencers of Health Screening 11/01/2022 Depression Screening 11/29/2024 Hypertension/CHF/CAD Annual BMP Blood Test 01/25/2025 COVID-19 Vaccine (4 - 2024-2 6 season) 2025 11/10/2021, 04/15/2021, 03/18/2021 Influenza Vaccine (#1) 2025 11/10/2021 Cholesterol Screening (Lipid Panel) 12/16/2028 12/16/2023 DTaP,Tdap,and Td Vaccines (2 - Td or Tdap) 11/14/2031 11/14/2021 RSV Immunization Adult Patients (1 - 1-dose 75+ series) 2060 Hepatitis C Screening Completed 05/16/2025 HIB Vaccines Aged Out No longer eligi ble based on patient's age to complete this topic HPV Vaccines Aged Out No longer eligi ble based on patient's age to complete this topic Hepatitis A Vaccines Aged Out No long er eligible based on patient's age to complete this topic IPV Vaccines Aged Out No longer eligi ble based on patient's age to complete this topic MMR Vaccines Aged Out No longer eligi ble based on patient's age to complete this topic Meningococcal ACWY Vaccine Aged Out N o longer eligible based on patient's age to complete this topic Meningococcal B Vaccine Aged Out No l onger eligible based on patient's age to complete this topic RSV Immunization Patients Under 20 months Aged Out No longer eligible b ased on patient's age to complete this topic Varicella Vaccines Aged Out No longer eligible based on patient's age to complete this topic Insurance [place] - [place] Member Subscriber Plan / Payer (Ef fective 2025-Present) Name:RUMA MAURICE Relation to Subscriber:Self Name:Ruma Perez Payer ID:[id number] Group ID:Not on file Type:Not on file Address: [facility] ATTN:CLAIMS [address] [place] [address] [place] [address]
--- OUTSIDE RECORDS SUMMARY | 2025-08-16 16:53 | XMS_ITS | Encounter Summary ---
Author Organization [employer] Address [address] [place] [address] 7t [place] [address] Care Team Providers Care Inspector Aluminum Boat Name Role Phone Miriam Damon MD Primary Care Provide r Reason for Visit * Reason Comments Med Refill Encounter Details Date Type Department Care Team ([facility] st Contact Info) Description 09/30/2023 Refill [facility] [place] [address] [place] [address] Iman Longoria FNP Social History Tobacco Use [...] on filedocumented in this encounter Care Teams Inspector Aluminum Boat Relationship Specialty Start Date End Date Miriam Damon MD [address] [place] [address] PCP - General Internal Medicine 09/08/23 documented as of this encounter
--- OUTSIDE RECORDS SUMMARY | 2025-08-16 16:53 | XMS_ITS | Encounter Summary ---
Author Organization [employer] Address [address] [place] [address] 7t [place] [address] Care Team Providers Care Residential Roofer Name Role Phone Miriam Damon MD Primary Care Provide r Encounter Details Date Type Department Care Team (Latest Contact Info) Description 08/16/2025 Travel Social History Tobacco Use Types Packs/Day Years [...] is your housing situation today? I have leahcecil kenny 08/08/[address] you [...] the past 12 months, has t he [email or web address], gas, oil or water company threatened to [...] documented as of this encounter Care Teams Residential Roofer Relationship Specialty Start Date End Date Miriam Damon MD [address] [place] [address] PCP - General Internal Medicine 09/08/23 documented as of this encounter
--- OUTSIDE RECORDS SUMMARY | 2025-08-16 16:53 | XMS_ITS | Encounter Summary ---
Author Organization [employer] Address [address] [place] [address] 7t [place] [address] Care Team Providers Care Merry Go Round Attendant Name Role Phone Miriam Damon MD Primary Care Provide r Reason for Visit * Reason Comments Med Refill Encounter Details Date Type Department Care Team ([facility] st Contact Info) Description 10/08/2023 Refill [facility] WALK-IN [place] [address] [place] [address] Iman Longoria FNP Social History Tobacco Use [...] on filedocumented in this encounter Care Teams Merry Go Round Attendant Relationship Specialty Start Date End Date Miriam Damon MD [address] [place] [address] PCP - General Internal Medicine 09/08/23 documented as of this encounter
--- OUTSIDE RECORDS SUMMARY | 2025-08-16 16:53 | XMS_ITS | Encounter Summary ---
Author Organization [facility] Address [address] [facility] [address] [place] [address] Phone Care Team Providers Care Coach Cleaner Name Role Phone [facility], [facility] Primary Care Provider Encounter Details Date Type Department Care Team (Late st Contact Info) Description 07/17/2021 Procedure Pass [place] Admitting Dept - Virtual Department [address] [place] [address] Social History Tobacco Use Types Packs/Day Years Used Date Smoking Tobacco: Never Smokeless Tobacco: Never Alcohol Use Standard Drinks/Week Comments Yes 0 (1 standard drink = 0.6 oz pur e alcohol) 1-2 drinks a month Comments No Sex and Gender Information Value Date Recorded Sex Assigned at Female 07/10/2025 6:39 PM EDT Legal Sex Female 9:32 AM EST Gender Identity Female 07/31/2021 11:16 PM EDT Sexual Orientation Not on file documented as of this encounter Plan of Treatment Upcoming Encounters Date Type Department Care Team (Late Contact Info) Description 09/19/2025 11:00 AM EDT Appointment [facility] [place], OB [address] [place] [address] Nick Clark MD [address] [facility] [place] [address] 09/19/2025 12:00 PM EDT Routine [facility] [address] [place] [address] Nick Clark MD [address] [facility], [address] [place] [address] [email or web address] documented as of this encounter Visit Diagnoses Not on filedocumented in this encounter Additional Health Concerns Infection Onset Date Last Indicated Resolved Time CoV-Risk 07/10/2025 07/10/2025 07/21/2025 1:21 AM EDT documented as of this encounter Care Teams Coach Cleaner Relationship Specialty Start Date End Date [facility] [address] [place] [address] PCP - General 07/14/21 documented as of this encounter Additional Source Comments The information contained in this document represents components of the legal health record. It is not the complete legal health record.[facility]
--- OUTSIDE RECORDS SUMMARY | 2025-08-16 16:53 | XMS_ITS | Clinical Summary ---
Author Organization [facility] Address [address] [place] [address] Care Team Providers Care Press Washer Name Role Phone Unavailable Primary Care Provider Unavailabl e Medications Medication Sig Dispensed Refills Start Date End Date Status Sjugkdv-Orlmawrcyjwfs-Rk ffeine (EXCEDRIN PO) Take by mouth. 0 Active predniSONE (DELTASONE) 5 mg tablet 0 07/17/2024 Active ondansetron (ZOFRAN-ODT) 4 MG disintegrating tablet TAKE ONE (1) TABLET UNDER THE TONGUE EVERY 8 HRS NEEDED FOR NAUSEA 0 07/31/2024 Active Prenat MV-Min w/Dq-Jwnabs-GKR ( COMPLETE PO) Take by mouth. 0 Active Naltrexone-Triamcinolone (NALTREXONE SC) Inject under the skin. 0 Active ESTRADIOL PO Take by mouth. 0 Active Social History Tobacco Use Types Packs/Day Years Used Date Smoking Tobacco: Never Assessed Tobacco Cessation:Counseling Given: Not Answered Sex and Gender Information Value Date Recorded Sex Assigned at Female 06/16/2024 11:06 AM EDT Gender Identity Not on file Sexual Orientation Not on file Job Start Date Occupation Industry Not on file Not on file Not on file Last Filed Vital Signs Vital Sign Reading Time Taken Comments Blood Pressure 145/87 08/14/2024 9:46 AM EDT Pulse 81 08/14/2024 9:46 AM EDT Temperature 36 C (96.8 F) 08/14/2024 9:46 AM EDT Respiratory Rate - - Oxygen Saturation 98% 08/14/2024 9:46 AM EDT Inhaled Oxygen Concentration - - Weight 62.1 kg (136 lb 12.8 oz) 08/14/2024 9:46 AM EDT Height 160 cm (5' 3 ) 08/14/2024 9:46 AM EDT Body Mass Index 24.23 08/14/2024 9:46 AM EDT Plan of Treatment Health Maintenance Due Date Last Done Comments Hepatitis B Vaccines (1 of 3 - 3-dose series) 1985 Hepatitis C Screening 1985 COVID-19 Vaccine (#1) 04/12/1986 Depression Screening 1997 Preventative Health Evaluation 2003 Cervical Cancer Screening (P ap Smear) 2006 Influenza Vaccine (#1) 2025 11/10/2021 DTap / Tdap / Td (2 - Td or Tdap) 11/14/2031 021 Pneumococcal Vaccine Aged Out No long er eligible based on patient's age to complete this topic RSV Ped < 20 months Aged Out No longe r eligible based on patient's age to complete this topic
--- OUTSIDE RECORDS SUMMARY | 2025-08-16 16:53 | XMS_ITS | Encounter Summary ---
Author Organization [employer] Address [address] [place] [address] 7 [place] [address] Care Team Providers Care Medical Collections Name Role Phone Lisa Bull CORONER Primary Care Provider Miriam Pena MD Primary Care Provide r Encounter Details Date Type Department Care Team (Late st Contact Info) Description 01/11/2023 Orders Only [facility] [address] [place] [address] Angélica Orellana LPN Social History Tobacco Use Types Packs/Day Years [...] on file documented as of this encounter Procedures Procedure Name Priority Date/Time Associated Diagnosis Comments HIV ANTIBODY/ANTIGEN ([place] DPH) Routine 07/26/2023 1:30 PM EDT PROGESTERONE, LC/MS Routine 07/26/2023 1 :30 PM EDT BETA-HCG, QUANTITATIVE (TUMOR MARKER) Routine 07/26/2023 1:30 PM EDT TESTOSTERONE, TOTAL, MALES (ADULT), IA Routine 07/26/2023 1:30 PM EDT documented in this encounter Results * Progesterone, LC/MS (07/26/2023 1:30 PM EDT) Progesterone, LC/MS <0.1 ng/mL [facility] Comment:Adult Female Referen ce Ranges for Progesterone: Pre-Menopausal Mid Follicular: < or = 0.3 ng/mL Pre-Menopausal Surge: 0.1-1.5 ng/mL Pre-Menopausal Mid Luteal: 6.7-22.2 ng/mL Postmenopausal Phase: < or = 0.2 ng/mLThis test was developed and its analytical performancecharacteristics have been determined by [facility]. It has not beencleared or approved by FDA. This assay has been validatedpursuant to the CLIA regulations and is used for clinicalpurposes.THIS TEST WAS PERFORMED AT:Float: [place] [id number] [place] [address]OPAKBROSALINE GALLEGO MD,PHD,MY 07/26/2023 1:30 PM EDT 07/26/2023 3:55 PM EDT Lisa Bull [facility] BLOOD ORDERABLES Final Result [facility] [address] [place] [address] [phone] * Testosterone, Total, males (Adult), IA (07/26/2023 1:30 PM EDT) Testosterone, Total 14 2 - 45 ng/dL [facility] Comment:For additional infor dell, please refer tohttp://education.[employer]/faq/IwcesGfxthnydkvbcADIMKEZFL607(This link is being provided for informational/educational purposes only.)This test was developed and its analytical performancecharacteristics have been determined by [facility] [place]. It hasnot been cleared or approved by the U.S. Food and DrugAdministration. This assay has been validated pursuantto the CLIA regulations and is used for clinicalpurposes.THIS TEST WAS PERFORMED AT:[employer]: [place]/[id number] [place] [address]HIRFOXQRACHELE SHEETS MD,PHD 07/26/2023 1:30 PM EDT 07/26/2023 3:55 PM EDT Lisa Stinson [facility] BLOOD ORDERABLES Final Result Performing Organization Address [facility] Co de Phone Number [facility] [address] [place] [phone] * HIV Ab/Ag ([facility]) (07/26/2023 1:30 PM EDT) [facility] HIV AB/AG Nonreactive Nonreactive [facility] Comment:HIV-1 p24 Ag and/or HIV-1/HIV-2 Ab not detected.A test result that is nonreactive does not exclude thepossibility of exposure to or infection with HIV-1 and/orHIV-2. Nonreactive results in this assay for individualswith prior exposure to HIV-1 and/or HIV-2 may be due toantigen and antibody levels that are below the limit ofdetection of this assay.[employer] HIV Ag/Ab Combo assay result andsupplemental assay results should be interpreted inconjunction with the patient's clinical presentation,history and other laboratory results. If the results areinconsistent with clinical evidence, additional testing issuggested to confirm the result. 07/26/2023 1:30 PM EDT 07/26/2023 3:55 PM EDT Lisa Shantell [facility] BLOOD ORDERABLES Final Result Performing Organization Address [facility]/ZIP Co de Phone Number [facility] [address] [place] [phone] * hCG, Total, Quantitative (07/26/2023 1:30 PM EDT) HCG Quantitative <2 mIU/mL [facility] Comment:Weeks post LMP Appro ximate hCG(Last Menstrual Period) Range (mIU/ml)3 - 4 weeks 9 - 1304 - 5 weeks 75 - 2,6005 - 6 weeks 850 - 20,8006 - 7 weeks 4000 - 100,2007 - 12 weeks 11,500 - 289,67838 - 16 weeks 18,300 - 137,95117 - 29 weeks (2nd trimester) 1,400 - 53,95033 - 41 weeks (3rd trimester) 940 - 60,000[employer] B- hCG assay is used for the early detection ofpregnancy; it cannot be used to diagnose any conditionunrelated to . If a B-hCG level is not supportedby the clinical evidence, results should be confirmed by analternative method (qualitative urine hCG, for example). 07/26/2023 1:30 PM EDT 07/26/2023 3:55 PM EDT Lisa HENRYP LAB BLOOD ORDERABLES Final Result [facility] [address] [place] [phone] documented in this encounter Visit Diagnoses Not on filedocumented in this encounter Care Teams Medical Collections Relationship Specialty Start Date End Date Lisa Bull FNP PCP - General Family Medicine 09/22/21 09/07/23 Miriam Damon MD [address] [place] [phone] PCP - General Internal Medicine 09/08/23 documented as of this encounter
--- OUTSIDE RECORDS SUMMARY | 2025-08-16 16:53 | XMS_ITS | Encounter Summary ---
Author Organization [facility] Address [address] [place] [address] Phone Care Team Providers Care Roof Tile Layer Name Role Phone Tano Ace MD Primary Care Provider + [facility] Primary Care Provider Encounter Details Date Type Department Care Team (Latest Contact Info) Description 11/01/2017 Ancillary Orders [facility] [address] [place] [address] [place] [address] Willy Robison, DO [address] [place] [phone] Chest pain, unspecified type; Palpitation Social History Tobacco Use Types Packs/Day Years [...] EDT Appointment [facility] [place], OB [address] [place] [address] [place] [phone] Nick Clark MD [address], [address] [place] [address] 09/19/2025 12:00 PM EDT Routine [facility] [place] [address] Nick Clark MD [address] [facility], [address] [address] [email or web address] documented as of this encounter Results * Holter Monitor 24 Hours (11/01/2017 10:03 AM EST) Anatomical Region Laterality Modality Heart Other Narrative 11/01/2017 12:47 PM EST Rhythm is sinus with an average rate of 85 bpm, ranging from 53 bpm middle of the night and up to 140 in the evening without activity disclosed. Four diary entries, presumably palpitations, occur during sinus rhythm. Willy Enriqueta DO [facility] ORDERABLE S Final Result documented in this encounter Visit Diagnoses Diagnosis Chest pain, unspecified type Palpitation Palpitations Chest pain, unspecified type Palpitation Palpitations documented in this encounter Additional Health Concerns Infection Onset Date Last Indicated Resolved Time CoV-Risk 07/10/2025 07/10/2025 07/21/2025 1:21 AM EDT documented as of this encounter Care Teams Roof Tile Layer Relationship Specialty Start Date End Date Tano Ace MD [address] [place] [phone] PCP - General Internal Medicine 04/23/21 07/13/21 [facility] [address] [place] [address] PCP - General 07/14/21 documented as of this encounter Additional Source Comments The information contained in this document represents components of the legal health record. It is not the complete legal health record.[facility]
--- OUTSIDE RECORDS SUMMARY | 2025-08-16 16:53 | XMS_ITS | Clinical Summary ---
Author Organization [facility] Address [address] [facility] [address] [place] [id number] Phone Care Team Providers Care Equipment Coordinator Name Role Phone [facility], [facility] Primary Care Provider Allergies No known active allergies Medications ALBUTEROL INHL Inhale into the lungs as needed. Active fluticasone propionate (FLONASE) 50 mcg/actuation nasal spray 2 sprays as needed. 04/06/20 23 Active progesterone 50 mg/mL injection Inject 50mg (1ml) intramuscularly once daily as directed 03/31/20 25 Active progesterone (PROMETRIUM) 200 mg capsule INSERT 1 CAPSULE VAGINALLY DOS VECES AL D A SEG N LO INDICADO 04/16/20 25 Active estradioL (ESTRACE) 2 MG tablet Take 2 mg by mouth 2 (two) times a day. Active enoxaparin (LOVENOX) 30 mg/0.3 mL Syrg subcutaneous syringe Inject 0.3 mL (30 mg total) under the skin daily for 14 days. 4.2 mL 05/03/20 25 Active vitamins with ferrous fum-FA 27 mg iron- 800 mcg Take 1 tablet by mouth. Active Active Problems Problem Noted Date Diagnosed Date History of 05/16/2025 Overview (05/16/2025): Requests RCS and TL resulting from in vitro fertilization in first trimester 05/16/2025 History of delivery 05/03/2025 Overview (05/03/2025): Date of surgery: o Reason for prior : failure to progress Incision type: Records requested/reviewed: Contraindications to TOLAC include > 2 prior births, prior uterine rupture or dehiscence, prior transfundal incision (classical, T, or J incisions; myomectomy with incision into uterine cavity or by surgeon's discretion), interpregnancy interval < 6 months Anterior placenta ? If anterior, schedule level 2 US to assess for signs of accreta Delivery route counseling: Preferred mode of delivery: with tubal Consent signed: If calculator score <60%, schedule MD consult at 35-37 weeks Calculator: [email or web address].[email or web address]/[email or web address]/[email or web address]/[email or web address]-[email or web address]-[email or web address]--xenia culat or Encounter for supervision of high-risk with multigravida of advanced maternal age 0605/03/2025 Overview (08/15/2025): MD Group PN care? * screening plans cfDNA: Fundamental screen Neg (CF, SMA, Frag X), Low risk , predicted sex XY x 2 Baby ASA? Yes Rh pos GC/Chlam PAP Normal 07/2023 Flu * COVID-19 * Hgb * GTT * Repeat RPR * Tdap * EPDS * PPBC * GBS * Feeding Plan * History of gestational hypertension 05/03/2025 Overview (05/03/2025): Fransisca HELLP labs, P/C ratio - done by IVF clinic, see media tab Baby ASA (162 mg daily) at 12-14 wks Twin , dichorionic/diamniotic, first tr imester 05/03/2025 Overview (06/13/2025): o Begin ASA (162 mg daily) at 12-14 wks o Offer genetic screening o First trimester sono to establish chorionicity o Level 2 o Growth sono with MFM q 4-6 wks starting at 28 wks, PLUS: mario: limited U/S (FH/presentation check) with every routine visit starting at 24 weeks; weekly BPP at 36 weeks mono-di: echo at 22 weeks; q2 week US 18-28 weeks to eval for twin-twin transfusion; weekly BPP at 32 weeks; twice weekly BPP at 34 weeks o MD consult 28-32 weeks to discuss mode of delivery (outreach counselor on multiple possibilities for delivery even with vtx/vtx, including one and one CS)--> patient requests CS for delivery o Mario: 38wk delivery o [place]/Di: 37wk delivery Elevated testosterone level in female 09/17/2021 Overview (09/17/2021): Free testosterone 2.6 (upper limit normal) and clitoromegaly. Has appointment with RE at [facility] in November Assessment & Plan (09/17/2021 4:56 PM EDT): Will start OCPs while awaiting consult Hirsutism 09/17/2021 Overview (09/17/2021): Will start spironolactone Female infertility 01/24/2021 Overview (05/03/2025): The patient reports conceiving twice without issue. Second was a demise and she had a D and C. Had a pelvic laparoscopy and was told that tubes were swollen. Had a procedure done. Normal laparoscopy 2020 >>OVERVIEW FOR FEMALE INFERTILITY WRITTEN ON 10/27/2024 2:00 PM BY NICK CLARK MD Pursuing IVF care with clinic in [place]. SHG with femvue 10/27/2024 with normal cavity and patent tubes Estimated Date of Delivery Comme nts Yes 12/01/2025 Based on Ultraso und Resolved Problems Problem Noted Date Diagnosed Date Resolved Date Obesity during 05/03/2025 Overview (05/03/2025): Obesity in (BMI >30) BMI at Intake Date Obesity plan of care discussed Pre- BMI > 48 by 32 weeks' gestation, transfer to tertiary care Recommend daily baby aspirin (162 mg daily) if another risk factor is present (nulliparity, family h/o pre-eclampsia in mother or sister, age >= 35, IVF , previous with SGA, previous stillbirth, interval >= 10 years between pregnancies) First trimester screen for diabetes - HgbA1c or 1-hr glucose tolerance test Nutrition counseling 11-20lb weight gain surveillance: Pre- BMI 35.0-39.9, weekly testing at 36 weeks, EFW at 32 and 36 weeks Pre- BMI 40 or more, weekly testing at 34 weeks, EFW 32 and 36 weeks Induction only if indicated PP lovenox according to guidelines Endometrial polyp 08/05/2023 05/16/2025 Assessment & Plan (08/05/2023 4:13 PM EDT): SHG done 07/29/23 at [facility] Showed retroverted uterus, echogenic focus on dorsal awll toward right side, possible polyp, possible adhesion. Recommended hysteroscopic polypectomy (prior to IVF) Class 2 obesity due to exces s calories without serious comorbidity with body mass index (BMI) of 38.0 to 38.9 in adult 09/17/2021 Overview (09/17/2021): Given hyperandrogenism, hirsutism, patient likely with PCOS and metabolic syndrome. Will trial metformin Encounters Date Type Department Care Team Description 08/15/2025 4:30 PM EDT Routine [facility] [address] [place] [address] Nick Clark MD GA: 24w4d 08/15/2025 Telephone [facility] [address] [place] [address] Nick Clark MD 07/17/2025 2:10 PM EDT Routine [facility] [address] [place] [address] [place] [address] Nick Clark MD GA: 20w3d 07/16/2025 8:00 AM EDT - 07/16/2025 11:59 PM EDT Hospital Encounter [facility], [address] [address] Nick Clark MD Aldana, Emma R Discharge Disposition: Home or Self Care 07/10/2025 10:40 PM EDT Ancillary Procedure [facility], [address] [address] Jose Cosme MD 07/10/2025 10:14 PM EDT - 07/10/2025 11:21 PM EDT Emergency [facility] [address] [place] [address] Jose Cosme MD Discharge Disposition: Home or Self Care 06/13/2025 10:40 AM EDT Routine [facility] [address] [place] [address] [place] [address] Nick Clark MD GA: 15w4d 06/13/2025 Telephone [facility] [address] [place] [address] [place] [address] Nick Clark MD Appointment 05/23/2025 Telephone [facility] [address] [place] [address] [place] [address] Germán Boykin RN Test Results (Myriad) 05/16/2025 9:46 AM EDT - 05/16/2025 11:59 PM EDT Hospital Encounter [facility] [address] [place] [address] [place] [address] Petrona Mcghee CNM Discharge Disposition: Home or Self Care 05/16/2025 9:20 AM EDT Routine [facility] [address] [place] [address] [place] [address] Nick Clark MD GA: 11w4d 05/16/2025 7:58 AM EDT - 05/16/2025 9:45 AM EDT [facility] [address] [place] [address] Petrona Mcghee CNM Discharge Disposition: Home or Self Care from Last 3 Months Family History Medical History Relation Comments Diabetes Mother Heart disease Mother Relation Status Comments Mother Social History Tobacco Use Types Packs/Day Years [...] your housing situation today? I have leah sing 07/10/2025 How many times have you move [...] PM EDT Sexual Orientation Not on file Last Filed Vital Signs Vital Sign Reading Time Taken Comments Blood Pressure 124/76 08/15/2025 4:38 PM EDT Pulse 78 07/10/2025 11:16 PM EDT Temperature 35.7 C (96.3 F) 07/10/2025 11:16 PM EDT Respiratory Rate 16 07/10/2025 11:16 PM EDT Oxygen Saturation 100% 07/10/2025 11:16 PM EDT Inhaled Oxygen Concentration - - Weight 80.7 kg (178 lb) 08/15/2025 4:38 PM EDT Height 162.6 cm (5' 4 ) 07/10/2025 6:37 PM EDT Body Mass Index 30.55 07/10/2025 6:37 PM EDT Plan of Treatment Upcoming Encounters Date Type Department Care Team (Late st Contact Info) Description 09/19/2025 11:00 AM EDT Appointment [facility] [place], [address] [place] [address] Nick Clark MD [address] [place] [address], [address] [address] 09/19/2025 12:00 PM EDT Routine [facility] [address] [place] [address] [place] [address] Nick Clark MD [address] [place] [address], [address] [address] Health Maintenance Due Date Last Done Comments DEPRESSION SCREENING 1997 INFLUENZA VACCINE (#1) 2025 COVID-19 VACCINE ( - 2023-2 5 season) 2025 RSV VACCINE (1 - Risk pregna nt 1-dose series) 10/06/2025 PAP SMEAR 08/05/2026 08/05/2023 SCREENING FOR DIABETES 07/10/2028 , 05/16/2025 Adult Td,Tdap Booster 11/14/2031 11/14/2021 SMOKING STATUS SCREENING (On ce After 26 Yrs) Completed 05/03/2025 HEPATITIS C SCREENING Completed 05/16/2025 , 02/22/2025 HIV ONE-TIME SCREENING (18-6 5 YEARS) Completed 05/16/2025 HEPATITIS A VACCINES Aged Out No long er eligible based on patient's age to complete this topic HIB VACCINES Aged Out No longer eligi ble based on patient's age to complete this topic MENINGOCOCCAL VACCINES (ACWY) Aged Out No longer eligible based on patient's age to complete this topic MENINGOCOCCAL VACCINES (B) Aged Out N o longer eligible based on patient's age to complete this topic PNEUMOCOCCAL VACCINES (0-49 years) Aged Out No longer eligible b ased on patient's age to complete this topic Medical Devices Not on file Procedures Procedure Name Priority Date/Time Associated Diagnosis Comments US OB GREATER THAN OR EQUAL TO 14 WEEKS ANATOMICAL DETAILED SURVEY Routine 07/16/2025 9:21 AM EDT Twin , dichorionic/diamniotic , first trimester Encounter for supervision of high-risk with multigravida of advanced maternal age COVID PANDEMIC RESPIRATORY VIRAL ORDER (PRO) STAT 07/10/2025 10:58 PM EDT US BEDSIDE Routine 07/10/2025 10:39 PM EDT LIPASE STAT 07/10/2025 7:04 PM EDT LFTS (HEPATIC PANEL) STAT 07/10/2025 7:04 PM EDT HCG, SERUM QUALITATIVE STAT 7:04 PM EDT BASIC METABOLIC PANEL STAT 07/10/2025 7:04 PM EDT CBC AND DIFFERENTIAL STAT 07/10/2025 7:04 PM EDT URINE SEDIMENT STAT 07/10/2025 7:01 PM EDT URINALYSIS W/REFLEX URINE CULTURE STAT 07/10/2025 7:01 PM EDT HC BLOOD TYPING SEROLOGIC ABO Routine 05/16/2025 9:55 AM EDT Encounter for supervision of high-risk with multigravida of advanced maternal age HC ELCTROPHORETIC TECHNIQUE NOT ELSEWHERE SPECIFIED Routine 05/16/2025 9:55 AM EDT HB ELECTROPHORESIS SUMMARY INTERP Routine 05/16/2025 9:55 AM EDT CBC Routine 05/16/2025 9:55 AM EDT Encounter for supervision of high-risk with multigravida of advanced maternal age MISCELLANEOUS LAB TEST Routine 5 9:55 AM EDT Encounter for supervision of high-risk with multigravida of advanced maternal age MISCELLANEOUS LAB TEST Routine 5 9:55 AM EDT Encounter for supervision of high-risk with multigravida of advanced maternal age HEMOGLOBIN ELECTROPHORESIS Routine 05/16/2025 9:55 AM EDT Encounter for supervision of high-risk with multigravida of advanced maternal age HEMOGLOBIN A1C Routine 05/16/2025 9:55 AM EDT Encounter for supervision of high-risk with multigravida of advanced maternal age SYPHILIS ANTIBODY SCREEN ASSAY Routine 05/16/2025 9:55 AM EDT Encounter for supervision of high-risk with multigravida of advanced maternal age CREATININE/EGFR Routine 05/16/2025 9:55 AM EDT Encounter for supervision of high-risk with multigravida of advanced maternal age ASPARTATE AMINOTRANSFERASE (AST) Routine 05/16/2025 9:55 AM EDT Encounter for supervision of high-risk with multigravida of advanced maternal age ALANINE AMINOTRANSFERASE (ALT) Routine 05/16/2025 9:55 AM EDT Encounter for supervision of high-risk with multigravida of advanced maternal age HEPATITIS B SURFACE ANTIGEN Routine 05/16/2025 9:55 AM EDT Need for hepatitis B screening test HEPATITIS C ANTIBODY, QUALITATIVE Routine 05/16/2025 9:55 AM EDT Encounter for supervision of high-risk with multigravida of advanced maternal age HIV-1/2 ANTIGEN/ANTIBODY Routine 05/16/2025 9:55 AM EDT Screening for human immunodeficiency virus RUBELLA ANTIBODY, IGG Routine 05/16/2025 9:55 AM EDT Encounter for supervision of high-risk with multigravida of advanced maternal age VARICELLA-ZOSTER (VZV) ANTIBODY, IGG Routine 05/16/2025 9:55 AM EDT Encounter for supervision of high-risk with multigravida of advanced maternal age US OB LESS THAN 14 WEEKS TRANSABDOMINAL Routine 05/16/2025 8:52 AM EDT Encounter for supervision of high-risk with multigravida of advanced maternal age Dichorionic diamniotic twin in first trimester PAP TEST Routine 08/05/2023 12:00 AM EDT from Last 3 Months or Most Recently Relevant to Health Maintenance Results * US OB GREATER THAN OR EQUAL TO 14 WEEKS ANATOMICAL DETAILED SURVEY (07/16/2025 9:21 AM EDT) Anatomical Region Laterality Modality Abdomen, Pelvis, Uterus/Adnexa U ltrasound 07/16/2025 10:2 1 AM EDT Impressions 07/16/2025 10:28 AM EDT Dichorionic, diamniotic twin gestation. biometry is appropriate for established gestational age and growth is concordant. No abnormalities seen in the structures that were visualized. Follow up is recommended in 4 weeks for interval growth. Narrative 07/16/2025 10:28 AM EDT Requester: NICK CLARK TECHNIQUE: US OB GREATER THAN OR EQUAL TO 14 WEEKS ANATOMICAL DETAILED SURVEY INDICATION: Twins; anatomic surveys. Examination of the uterus reveals a dichorionic, diamniotic twin . The presenting fetus is inferior with a posterior placenta which does not reach the cervix. The nonpresenting fetus is superior with a posterior placenta. Both fetuses demonstrate normal heart rates and good activity. There is a normal amount of amniotic fluid in each sac. For both fetuses: A detailed evaluation of the anatomy appears normal. This includes lateral ventricles, cavum septum pellucidum, cerebellum, cisterna magna, face, thorax, heart (four chamber view and outflow tracts), stomach, bladder, kidneys, umbilical cord insertion site, spine, and all four extremities (length and architecture) . There is a three vessel umbilical cord and no abnormalities of the placenta were noted. The cervix measures > 3 cm in length without funnelling. No adnexal masses were seen. Biometry is consistent with 20 weeks and 2 days, based on established dates, with an EDC of 12/01/2025. Procedure Note Destinee Rosas MD - 07/16/2025 Requester: NICK CLARK TECHNIQUE: US OB GREATER THAN OR EQUAL TO 14 WEEKS ANATOMICAL DETAILEDSURVEY INDICATION: Twins; anatomic surveys. Examination of the uterus reveals a dichorionic, diamniotic twinpregnancy. The presenting fetus is inferior with a posterior placentawhich does not reach the cervix. The nonpresenting fetus is superior witha posterior placenta. Both fetuses demonstrate normal heart rates andgood activity. There is a normal amount of amniotic fluid in each sac. For both fetuses: A detailed evaluation of the anatomy appearsnormal. This includes lateral ventricles, cavum septum pellucidum,cerebellum, cisterna magna, face, thorax, heart (four chamber view andoutflow tracts), stomach, bladder, kidneys, umbilical cord insertion site,spine, and all four extremities (length and architecture) . There is athree vessel umbilical cord and no abnormalities of the placenta werenoted. The cervix measures > 3 cm in length without funnelling. No adnexalmasses were seen. Biometry is consistent with 20 weeks and 2 days, based on establisheddates, with an EDC of 12/01/2025. IMPRESSION: Dichorionic, diamniotic twin gestation. biometry is appropriate forestablished gestational age and growth is concordant. No abnormalitiesseen in the structures that were visualized. Follow up is recommended in 4weeks for interval growth. us Nick Clark MD IMG US OBSTETRIC Final Result * COVID Pandemic Respiratory Viral Order (PRO) (07/10/2025 10:58 PM EDT) Test Ordered Rapid COVID has been ordered [facility] Specimen Source/Descri ption NASL [facility] SARS-CoV 2 (COVID-19) PCR Not Detected Not Detected [facility] Other (Nasopharyngeal swab) 07/10/2025 10:58 PM EDT 07/10/2025 11:22 PM EDT us Jose Cosme MD BODY FLUIDS AND STOOLS O RDERABLES Final Result [address] [address] * US BEDSIDE (07/10/2025 10:39 PM EDT) Anatomical Region Laterality Modality Ultrasound Narrative 07/10/2025 10:39 PM EDT Jose Cosme MD 07/11/2025 1:54 AM Bedside Ultrasound Date/Time: 07/10/2025 10:39 PM Performed by: Jose Cosme MD Authorized by: Jose Cosme MD Exam Type: Pelvis and DVT Pelvis Exam Findings & Impression: Indications: patient with abdominal pain in Views: transabdominal view Intrauterine : the uterus was visualized and a positive yolk sac, pole or fetus was identified Pelvic Free Fluid: the retrovesicular space could not be visualized and so the presence or absence of fluid could not be assessed Other Findings: Twin , 1: HR 136. 2. HR 154 Overall Impression: positive DVT Exam Findings & Impression: Indications: patient with extremity swelling and extremity pain DVT Left Proximal: the left left common femoral vein was visualized and negative for DVT DVT Left Popliteal: the left popliteal vein was visualized and negative for DVT Overall Impression: negative Images: Images Saved: Yes Accession Number: [id number] us Jose Cosme MD IMG POINT OF CARE EXAMS Final Result * (ABNORMAL) HCG, serum qualitative (07/10/2025 7:04 PM EDT) HCG, QUALITATIVE Positive( A) Negative IU/L [facility] Blood 07/10/2025 7:04 PM EDT 07/10/2025 7:31 PM EDT Alfa Buchanan MD LAB BLOOD ORDERABLES Final Resu lt [facility] [address] [place] [address] * (ABNORMAL) LFTs (hepatic panel) (07/10/2025 7:04 PM EDT) ALKALINE PHOSPHATASE 54 39 - 117 U/L [facility] TOTAL BILIRUBIN <0.2 0.0 - 1.2 mg/dL [facility] DIRECT BILIRUBIN <0.1 0.0 - 0.2 mg/dL [facility] Bilirubin (Indirect) NOT CALCULATED 0 - 1.5 mg/dL [facility] AST 17 0 - 37 U/L [facility] ALT 13 0 - 40 U/L [facility] TOTAL PROTEIN 6.6 6.5 - 8.0 g/dL [facility] ALBUMIN 3.5(L) 3.9 - 4.8 g/dL [facility] GLOBULIN 3.1 1 - 4.8 g/dL [facility] A/G Ratio 1.13 1.00 - 4.80 RATIO [facility] Blood 07/10/2025 7:04 PM EDT 07/10/2025 7:31 PM EDT us Alfa Buchanan MD LAB BLOOD ORDERABLES Final Resu lt [facility] [address] [place] [address] * (ABNORMAL) CBC and differential (07/10/2025 7:04 PM EDT) WBC 10.20 4.00 - 11.00 K/uL [facility] RBC 3.82(L) 4.00 - 5.20 M/uL [facility] HGB 11.5(L) 12.0 - 16.0 g/dL [facility] HCT 35.3(L) 36.0 - 46.0 % [facility] PLT 226 150 - 450 K/uL [facility] MCV 92.4 80.0 - 100.0 fL [facility] MCH 30.1 27.0 - 31.0 pg [facility] MCHC 32.6 32.0 - 36.0 g/dL [facility] RDW 14.3 11.5 - 14.5 % [facility] MPV 11.8 8.4 - 12.0 fL [facility] NRBC 0.00 0.00 /100 WBCs [facility] ABSOLUTE NRBC 0.00 0.00 K/uL [facility] DIFF METHOD Auto [facility] NEUTS 62.3 48.0 - 76.0 % [facility] LYMPHS 26.7 18.0 - 41.0 % [facility] MONOS 8.0 4.0 - 11.0 % [facility] EOS 1.5 0.0 - 5.0 % [facility] BASOS 0.4 0.0 - 1.5 % [facility] Granulocytes, immature (%) 1.1(H) 0.0 - 0.9 % [facility] ABSOLUTE NEUTS 6.36 1.92 - 7.60 K/uL [facility] ABSOLUTE LYMPHS 2.72 0.72 - 4.10 K/uL [facility] ABSOLUTE MONOS 0.82 0.16 - 1.10 K/uL [facility] ABSOLUTE EOS 0.15 0.00 - 0.50 K/uL [facility] ABSOLUTE BASOS 0.04 0.00 - 0.15 K/uL [facility] Granulocytes, immature 0.11(H) 0.00 - 0.09 K/uL [facility] Blood 07/10/2025 7:04 PM EDT 07/10/2025 7:31 PM EDT Alfa Buchanan MD LAB BLOOD ORDERABLES Final Resu lt [address] [address] * Lipase (07/10/2025 7:04 PM EDT) LIPASE 28 16 - 63 U/L [facility] Blood 07/10/2025 7:04 PM EDT 07/10/2025 7:31 PM EDT Alfa Buchanan MD LAB BLOOD ORDERABLES Final Resu lt Performing Organization Address City/[facility]/ZIP Co de Phone Number [address] [address] * (ABNORMAL) Basic metabolic panel (07/10/2025 7:04 PM EDT) SODIUM 137 133 - 146 mmol/L [facility] CHLORIDE 105 96 - 108 mmol/L [facility] POTASSIUM 3.9 3.3 - 5.1 mmol/L [facility] CO2 20(L) 21 - 35 mmol/L [facility] BUN 10 6 - 19 mg/dL [facility] CREATININE 0.50 0.5 - 1.5 mg/dL [facility] GLUCOSE 80 70 - 99 mg/dL [facility] CALCIUM 9.1 8.4 - 10.3 mg/dL [facility] EGFR >120 >59 mL/min/1.7 3m2 [facility] Comment:Estimated glomerular filtration rate calculated using the CKD-EPI refit equation. ANION GAP 16 10 - 20 mmol/L [facility] Blood 07/10/2025 7:04 PM EDT 07/10/2025 7:31 PM EDT us Alfa Buchanan MD LAB BLOOD ORDERABLES Final Resu lt Performing Organization Address [facility]/ZIP Co de Phone Number [address] [address] * (ABNORMAL) Urinalysis w/reflex Urine Culture (07/10/2025 7:01 PM EDT) COLOR Yellow Yellow [facility] CLARITY Clear [facility] GLUCOSE Negative Negative [facility] BILI Negative Negative [facility] KETONES Negative Negative [facility] SPECIFIC GRAVITY 1.015 1.005 - 1.030 [facility] BLOOD Negative Negative [facility] PH 6.5 5.0 - 8.0 [facility] Protein-UA Negative Negative [facility] NITRITE Negative Negative [facility] Leukocyte esterase, ur Trace(A) Negative [facility] Urine (Urine) 07/10/2025 7:0 1 PM EDT 07/10/2025 7:30 PM EDT us Alfa Buchanan MD URINE ORDERABLES Final Result Performing Organization Address [facility] Co de Phone Number [address] [address] * (ABNORMAL) Urine sediment (07/10/2025 7:01 PM EDT) WBC 5-10(A) NONE SEEN /hpf [facility] RBC 3-5(A) NONE SEEN /hpf [facility] URINE EPITHELIAL 21-49(A) NONE SEEN [facility] MUCUS Trace(A) NONE SEEN /hpf [facility] BACTERIA 2+(A) NONE SEEN /hpf [facility] 07/10/2025 7:01 PM EDT 07/10/2025 7:30 PM EDT us Alfa Buchanan MD URINE ORDERABLES Final Result [facility] [address] [place] [address] * IEF Confirms (Reflex) (05/16/2025 9:55 AM EDT) [facility] IEF CONFIRMS See Interpretation [facility] DPT OF LAB MED AND PAT+ Comment: (NOTE) ADDITIONAL INFORMATION This test has been modified from the wardrobe specialist's instructions. Its performance characteristics were determined by [facility] in a manner consistent with CLIA requirements. This test has not been cleared or approved by the U.S. Food and Drug Administration. 05/16/2025 9:55 AM EDT 05/16/2025 10:05 AM EDT Petrona Kelseyhenrik [facility] LAB BLOOD ORDERABLES Final Resul t Performing Organization Address [facility] Co de Phone Number [facility] DPT OF LAB MED AND PAT+ [address] [place] [address] * Creatinine/eGFR (05/16/2025 9:55 AM EDT) [facility] CREATININE 0.50 0.5 - 1.5 mg/dL [facility] EGFR >120 >59 mL/min/1.7 3m2 [facility] Comment:Estimated glomerular filtration rate calculated using the CKD-EPI refit equation. Blood 05/16/2025 9:55 AM EDT 05/16/2025 10:05 AM EDT [facility]LO[facility]LES Final Resul t Performing Organization Address [facility]/ZIP Co de Phone Number [facility] [address] [place] [address] * Miscellaneous lab test (05/16/2025 9:55 AM EDT) Only the most recent of2 resultswithin the time period is included. [facility] TESTS REQUESTED MYRIAD CELL FREE DNA (PREQUEL) [facility] SPECIMEN/TUBE TYPE misc [facility] REQUEST RECEIVED Request received. A separate order for the requested test will be generated by the laboratory. [facility] Blood 05/16/2025 9:55 AM EDT 05/16/2025 10:06 AM EDT Petrona MELCHOR LAB BLOOD ORDERABLES Final Resul t Performing Organization Address [facility]/ZIP Co de Phone Number [address] [address] * Screen (05/16/2025 9:55 AM EDT) ABO/Rh A Positive [facility] Antibody Screen Negative [facility] Resulting Agency [facility] Blood 05/16/2025 9:55 AM EDT 05/16/2025 10:03 AM EDT Petrona Mcghee [facility] BLOOD BANK TEST ORDERABLES Final Result Performing Organization Address [facility] Co de Phone Number [address] [address] * Rubella antibody, IgG (05/16/2025 9:55 AM EDT) Rubella Ab, IgG Positive Positive [facility] Blood (Blood) 05/16/2025 9:5 5 AM EDT 05/16/2025 10:06 AM EDT Petrona Mcghee [facility] NON CULTURE MICROBIOLOGY Final R esult Performing Organization Address [facility] Co de Phone Number [address] [address] * Varicella-zoster (VZV) antibody, IgG (05/16/2025 9:55 AM EDT) Varicella Ab(s) Positive Positive [facility] Blood (Blood) 05/16/2025 9:5 5 AM EDT 05/16/2025 10:06 AM EDT Petrona Mcghee JILLHanny NON CULTURE MICROBIOLOGY Final R esult Performing Organization Address City/[facility]/ZIP Co de Phone Number [address] [address] * HIV-1/2 antigen/antibody (05/16/2025 9:55 AM EDT) HIV-1/2 Antigen/Antibo dy NON-REACTI VE NON-REACTI VE [facility] Blood 05/16/2025 9:55 AM EDT 05/16/2025 10:06 AM EDT Petrona Mcghee JILLHanny LAB BLOOD ORDERABLES Final Resul t Performing Organization Address City/[facility]/ZIP Co de Phone Number [address] [address] * HB ELECTROPHORESIS SUMMARY INTERP (05/16/2025 9:55 AM EDT) HPLC Hemoglobin Variant SEE NOTE [facility] DPT OF LAB MED AND PAT+ Comment: (NOTE) 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 The delta chain variant percentage, in combination with the measured Hb A2 level, is within normal percentage range and does not imply thalassemia. Comment: The vast majority of clinically significant hemoglobin variants are excluded although some rare hemoglobin disorders are electrophoretically silent. If otherwise unexplained lifelong/familial symptoms such as hemolysis (i.e. Yuri body hemolytic anemia), microcytosis, erythrocytosis, cyanosis, or hypoxia are present and additional testing is desired, please call the Met[facility] Hematology Laboratory ( ). If alpha thalassemia is a consideration, alpha globin gene deletion/duplication analysis is available (AGDD/Alpha Globin Cluster Locus Del/Dup). Additional sample required. Methodologies utilized in this interpretation include: capillary electrophoresis, HPLC, IEF Reviewed By Pillo Escobar M.D., Ph.D. [facility] DPT OF LAB MED AND PAT+ 05/16/2025 9:55 AM EDT 05/16/2025 10:05 AM EDT Petrona MELCHOR LAB BLOOD ORDERABLES Final Resul t Performing Organization Address City/[facility]/ZIP Co de Phone Number [facility] DPT OF LAB MED AND PAT+ [address] [place] [address] * Hepatitis C antibody, qualitative (05/16/2025 9:55 AM EDT) HCV NON-REACTIV E NON-REACTI VE [facility] Blood 05/16/2025 9:55 AM EDT 05/16/2025 10:05 AM EDT us Petrona Taz [facility] LAB BLOOD ORDERABLES Final Resul t Performing Organization Address [facility] Co de Phone Number [address] [address] * Syphilis antibody screen (05/16/2025 9:55 AM EDT) RPR NON-REACTIV E NON-REACTI VE [facility] Blood 05/16/2025 9:55 AM EDT 05/16/2025 10:05 AM EDT Petrona Taz [facility] LAB BLOOD ORDERABLES Final Resul t Performing Organization Address [facility]/ZIP Co de Phone Number [address] [address] * Hepatitis B surface antigen (05/16/2025 9:55 AM EDT) HBV SURFACE ANTIGEN NON-REACTI VE NON-REACTI VE [facility] Blood 05/16/2025 9:55 AM EDT 05/16/2025 10:05 AM EDT Petrona Mcghee [facility] LAB BLOOD ORDERABLES Final Resul t Performing Organization Address City/[facility]/ZIP Co de Phone Number [address] [address] * CBC (05/16/2025 9:55 AM EDT) Pathologist [facility] WBC 10.61 4.00 - 11.00 K/uL [facility] RBC 4.33 4.00 - 5.20 M/uL [facility] HGB 12.7 12.0 - 16.0 g/dL [facility] HCT 38.9 36.0 - 46.0 % [facility] PLT 291 150 - 450 K/uL [facility] MCV 89.8 80.0 - 100.0 fL [facility] MCH 29.3 27.0 - 31.0 pg [facility] MCHC 32.6 32.0 - 36.0 g/dL [facility] RDW 13.3 11.5 - 14.5 % [facility] MPV 11.8 8.4 - 12.0 fL [facility] NRBC 0.00 0.00 /100 WBCs [facility] ABSOLUTE NRBC 0.00 0.00 K/uL [facility] Blood 05/16/2025 9:55 AM EDT 05/16/2025 10:05 AM EDT Petrona Mcghee [facility] LAB BLOOD ORDERABLES Final Resul t Performing Organization Address [facility] Co de Phone Number [address] [address] * (ABNORMAL) Hemoglobin Evaluation (05/16/2025 9:55 AM EDT) Pathologist [facility] HGB Interpretation SEE NOTE [facility] DPT OF LAB MED AND PAT+ Comment: (NOTE) See Hb Electrophoresis Summary Interpretation (HBEL0) for a discussion of results. HGB Interp Cancel Test component not applicable or not reported. [facility] DPT OF LAB MED AND PAT+ Hb A 97.9 95.8 - 98.0 % [facility] DPT OF LAB MED AND PAT+ Hb F 0.0 0.0 - 0.9 % [facility] DPT OF LAB MED AND PAT+ Hb A2 1.1(L) 2.0 - 3.3 % [facility] DPT OF LAB MED AND PAT+ Variant 1 (SEE NOTE)(A) 0.0 % [facility] DPT OF LAB MED AND PAT+ Comment: (NOTE) Result: 1.0 Hb A2 Prime ADDITIONAL INFORMATION This test has been modified from the wardrobe specialist's instructions. Its performance characteristics were determined by [facility] in a manner consistent with CLIA requirements. This test has not been cleared or approved by the U.S. Food and Drug Administration. Variant 2 Test component not applicable or not reported. % [facility] DPT OF LAB MED AND PAT+ Variant 3 Test component not applicable or not reported. % [facility] DPT OF LAB MED AND PAT+ HGBCE Interpretation Test component not applicable or not reported. [facility] DPT OF LAB MED AND PAT+ HPLC Hemoglobin Variant See Interpretation [facility] DPT OF LAB MED AND PAT+ Comment: (NOTE) ADDITIONAL INFORMATION This test has been modified from the wardrobe specialist's instructions. Its performance characteristics were determined by [facility] in a manner consistent with CLIA requirements. This test has not been cleared or approved by the U.S. Food and Drug Administration. Blood 05/16/2025 9:55 AM EDT 05/16/2025 10:05 AM EDT Petrona Mcghee CNM LAB BLOOD ORDERABLES Final Resul t [facility] DPT OF LAB MED AND PAT+ [address] [place] [address] * Alanine aminotransferase (ALT) (05/16/2025 9:55 AM EDT) ALT 14 0 - 40 U/L [facility] Blood 05/16/2025 9:55 AM EDT 05/16/2025 10:05 AM EDT us Petrona Mcghee CNM LAB BLOOD ORDERABLES Final Resul t Performing Organization Address [facility] Co de Phone Number [address] [address] * Aspartate aminotransferase (AST) (05/16/2025 9:55 AM EDT) AST 31 0 - 37 U/L [facility] Blood 05/16/2025 9:55 AM EDT 05/16/2025 10:05 AM EDT Petrona MELCHOR LAB BLOOD ORDERABLES Final Resul t Performing Organization Address [facility] Co de Phone Number [address] [address] * Hemoglobin A1c (05/16/2025 9:55 AM EDT) HEMOGLOBIN A1C 5.4 4.3 - 5.8 % [facility] Blood 05/16/2025 9:55 AM EDT 05/16/2025 10:06 AM EDT Petrona MELCHOR LAB BLOOD ORDERABLES Final Resul t Performing Organization Address [facility] de Phone Number [address] [address] * US OB LESS THAN 14 WEEKS TRANSABDOMINAL (05/16/2025 8:52 AM EDT) Anatomical Region Laterality Modality Abdomen, Pelvis, Uterus/Adnexa U ltrasound 05/16/2025 8:55 AM EDT Impressions 05/17/2025 8:10 PM EDT 1. Live / twin with above dating criteria. 2. The NT measurement is normal x 2. 3. The ovaries were not visualized. Narrative 05/17/2025 8:10 PM EDT Procedure: US OB LESS THAN 14 WEEKS TRANSABDOMINAL 05/16/2025 8:14 AM US Indications: IVF twin , HB check. Comparison: No relevant recent comparisons. Maternal age: 39 years. Technique: Transabdominal scan was performed. Color Doppler and M-mode imaging was performed to assess vascularity. FINDINGS: Type of twin : Dichorionic Diamniotic Twins Fetus 1: FHR: 158.0 bpm CRL: 4.93 cm Nuch Fold: 1.22 mm Gestational Age by LMP: 11 weeks 4 day(s) Ultrasound EGA: 11 weeks 5 day(s) Ultrasound JOHNNY: [id number] Established JOHNNY: 11 weeks 4 day(s) Fetus 2: FHR: 156.0 bpm CRL: 5.38 cm Nuch Fold: Not well seen, but appears WNL Gestational Age by LMP: 11 weeks 4 day(s) Ultrasound EGA: 11 weeks 5 day(s) Ultrasound JOHNNY: [id number] Established JOHNNY: 11 weeks 4 day(s) Overies: Rt Ovary: Right ovary cannot be visualized. Adnexa: No masses seen. Lt. Ovary: Left ovary cannot be visualized. Adnexa: No masses seen. Tech Comments: Live twin . Procedure Note Alex Patton MD - 05/17/2025 Procedure: US OB LESS THAN 14 WEEKS TRANSABDOMINAL 05/16/2025 8:14 AM US Indications: IVF twin , HB check. Comparison: No relevant recent comparisons. Maternal age: 39 years. Technique: Transabdominal scan was performed. Color Doppler and M-modeimaging was performed to assess vascularity. FINDINGS: Type of twin : Dichorionic Diamniotic Twins Fetus 1: FHR: 158.0 bpm CRL: 4.93 cm Nuch Fold: 1.22 mm Gestational Age by LMP: 11 weeks 4 day(s) Ultrasound EGA: 11 weeks 5 day(s) Ultrasound JOHNNY: [id number] Established JOHNNY: 11 weeks 4 day(s) Fetus 2: FHR: 156.0 bpm CRL: 5.38 cm Nuch Fold: Not well seen, but appears WNL Gestational Age by LMP: 11 weeks 4 day(s) Ultrasound EGA: 11 weeks 5 day(s) Ultrasound JOHNNY: [id number] Established JOHNNY: 11 weeks 4 day(s) Overies: Rt Ovary: Right ovary cannot be visualized. Adnexa: No masses seen. Lt. Ovary: Left ovary cannot be visualized. Adnexa: No masses seen. Tech Comments: Live twin . IMPRESSION: 1. Live / twin with above dating criteria. 2. The NT measurement is normal x 2. 3. The ovaries were not visualized. Petrona Mcghee CN IM US OBSTETRIC Final Result * Pap Test (08/05/2023 12:00 AM EDT) 08/05/2023 08/06/2023 8:4 7 AM EDT Narrative SEE NARRATIVE - 08/10/2023 1:04 [place] [address] Banking Analyst: Mae Zavala MD RURAL SERVICE ENGINEER Cytology Report FINAL DIAGNOSIS A. PAP SMEAR (SUREPATH) CE: SPECIMEN ADEQUACY: Satisfactory for evaluation; transformation zone present. INTERPRETATION: NEGATIVE FOR INTRAEPITHELIAL LESION OR MALIGNANCY. Fungal organisms morphologically consistent with Debby species. Electronically Signed Out By: LILIA Garcia(ASCP) The Pap test is a screening test primarily for squamous cancers and precursors and has associated false-negative and false-positive results. New technologies such as liquid-based preparations may decrease but will not eliminate all false-negative results. Regular sampling and follow-up of unexplained clinical signs and symptoms are recommended to minimize false negative results. PROCEDURES/ADDENDA HPV Testing (Requested) Ordered Date: 08/06/2023 A. PAP SMEAR (SUREPATH) CE: Human Papilloma Virus Test NEGATIVE for high-risk Human Papilloma Virus types 16, 18, 45 and the Other high risk probe set (Includes 31, 33, 35, 39, 51, 52, 56, 58, 59, 66, 68) Note: Testing performed by [employer] Onclarity HR-HPV analysis. Clinical correlation is advised. This HPV test was performed at [facility], [address] [place] [address]. This test has been FDA approved for SurePath cervical cytology specimens. The accuracy and precision of this test for all other specimen sources has been verified in the Cytopathology Laboratory of the [facility] and has not been cleared or approved by the U.S. Food and Drug Administration. Clinical correlation is advised. CLINICAL HISTORY Date of Last Menstrual Period: 07-23-2023 Other Clinical Conditions: Screening Pap SPECIMEN SOURCE A: PAP SMEAR (SUREPATH) CE Patient Name: KATIE SOLORIO : 1985 (Age: 37) Sex: F Institution: [facility] Location: [facility] Date of Collection: 08/05/2023 Date of Reported: 08/10/2023 13:04 Results to: Paige Bolden MD Paige Bolden MD CYTOLOGY ORDERABLES Final Result SEE NARRATIVE from Last 3 Months or Most Recently Relevant to Health Maintenance Insurance [place] [address] [facility] Care Teams Equipment Coordinator Relationship Specialty Start Date End Date [facility] [address] [place] [address] PCP - General 07/14/21 Additional Source Comments The information contained in this document represents components of the legal health record. It is not the complete legal health record.[facility]
== END 2025-08-16 15:33 | disposition home or self-care (01) ==
LOC: HO.HHCL 15:32
PROVIDERS: PCP Internal Medicine; Visit Provider Internal Medicine
DX: Z13.89 Encounter for screening for other disorder (principal)

== ENCOUNTER 2025-08-17 14:34 | Outpatient (REF) | payer MEDICAID, SELFPAY ==
--- OUTSIDE RECORDS SUMMARY | 2025-08-15 16:30 | XMS_ITS | Encounter Summary ---
Author Organization [facility] Address [address] [place] [address] Phone Care Team Providers Care Geothermal Electrical Engineer Name Role Phone [facility] Primary Care Provider Reason for Visit * Reason Comments Routine Visit Encounter Details Date Type Department Care Team (Late st Contact Info) Description 08/15/2025 4:30 PM EDT Routine [facility] [address] [place] [address] [place] [address] Nick Clark MD [address], [address] [place] [address] [email or web address] [place]: [email or web address] Social History Tobacco Use Types Packs/Day Years Used Date Smoking Tobacco: Never Smokeless Tobacco: Never Alcohol Use Standard Drinks/Week Comments Not Currently 0 (1 standard drink = 0.6 oz pur e alcohol) 1-2 drinks a month Education Answer Date Recorded Are you interested in more education? Not on jessica e 03/26/2023 Are you concerned about learning? Not on file 03/26/2023 No 03/26/2023 No 03/26/2023 Food Answer Date Recorded Within the past 6 months we worried whether our food would run out before we got money to buy more. Never True 07/10/2025 Within the past 6 months the food we bought just didn't last and we didn't have enough money to get more. Never True Residential Stability Answer Date Recor ded What is your housing situation today? I have leah kenny 07/10/2025 How many times have you move d in the past 12 months? Zero (I did not move) 07/10/2025 Paying for Meds Answer Date Recorded Do you have trouble paying for medicines? No 07/10/2025 Paying Utility Bills Answer Date Record ed Do you have trouble paying your heating or elect ricity bill? No 07/10/2025 Transportation Answer Date Recorded Has the lack of transportati on kept you from medical appointments or from getting medications? No 07/10/2025 Digital Access Answer Date Recorded No 07/10/2025 Yes 07/10/2025 Do you have reliable internet access at home? Ye s 07/10/2025 Do you have a device (e.g., phone, tablet, computer) with a working camera? Yes 07/10/2025 Intimate Partner Violence Answer Date R ecorded Are you denied basic needs s uch as food, clothing, or medical care? No 07/10/2025 In the past 12 months have y ou been in a relationship with a person who hurts, threatens, or tries to control you? No 07/10/2025 Are you denied basic needs s uch as food, clothing, or medical care? No 07/10/2025 In the past 12 months have y ou been in a relationship with a person who hurts, threatens, or tries to control you? No 07/10/2025 Estimated Date of Delivery Comme nts Yes 12/01/2025 Based on Ultraso und Sex and Gender Information Value Date Recorded Sex Assigned at Female 07/10/2025 6:39 PM EDT Legal Sex Female 9:32 AM EST Gender Identity Female 07/31/2021 11:16 PM EDT Sexual Orientation Not on file documented as of this encounter Last Filed Vital Signs Vital Sign Reading Time Taken Comments Blood Pressure 124/76 08/15/2025 4:38 PM EDT Pulse - - Temperature - - Respiratory Rate - - Oxygen Saturation - - Inhaled Oxygen Concentration - - Weight 80.7 kg (178 lb) 08/15/2025 4:38 PM EDT Height - - Body Mass Index 30.55 07/10/2025 6:37 PM EDT documented in this encounter Progress Notes * Nick Clark MD - 08/15/2025 4:30 PM EDT Ruma is doing well overall. Feeling babies regularly. No bleeding. Ordered US for growth for soon and repeat in 4 weeks. All questions answered documented in this encounter Plan of Treatment Upcoming Encounters Date Type Department Care Team (Late st Contact Info) Description 09/19/2025 11:00 AM EDT Appointment [facility] [address] [place] [address] [place] [address] Nick Clark MD [address] [place] [address], [address] [address] 09/19/2025 12:00 PM EDT Routine [facility] [address] [place] [address] [place] [address] Nick Clark MD [address] [place] [address], [address] [address] [email or web address] Scheduled Orders Name Type Priority Associated Diagnoses Orde r Schedule US OB Greater Than or Equal to 14 Weeks Limited Imaging Routine Encounter for supervision of high-risk with multigravida of advanced maternal age Twin , dichorionic/diamniotic, first trimester Expected: 08/15/2025, Expires: 08/15/2026 US OB Greater Than or Equal to 14 Weeks Limited Imaging Routine Encounter for supervision of high-risk with multigravida of advanced maternal age Twin , dichorionic/diamniotic, first trimester Expected: 08/15/2025, Expires: 08/15/2026 documented as of this encounter Visit Diagnoses Diagnosis Encounter for supervision of high-risk with multigravida of advanced maternal age- Primary Twin , dichorionic/diamniotic, first trimester documented in this encounter Care Teams Geothermal Electrical Engineer Relationship Specialty Start Date End Date [facility], Varsha, [address] [place] [address] PCP - General 07/14/21 documented as of this encounter Additional Source Comments The information contained in this document represents components of the legal health record. It is not the complete legal health record.[facility]
--- OUTSIDE RECORDS SUMMARY | 2025-08-16 14:45 | XMS_ITS | Encounter Summary ---
Author Organization [employer] Address [address] [place] [address] 7 [place] [address] Care Team Providers Care Zinc Etcher Name Role Phone Miriam Damon MD Primary Care Provide r Reason for Visit * Reason Comments Annual Exam Encounter Details Date Type Department Care Team (Late st Contact Info) Description 08/16/2025 2:45 PM EDT Office Visit [facility] [address] [place] [phone] Miriam Damon MD [address] [place] [address] Encounter for preventive care (Primary Dx); Mild [...] documented as of this encounter Care Teams Zinc Etcher Relationship Specialty Start Date End Date Miriam Damon MD [address] [place] [address] PCP - General Internal Medicine 09/08/23 documented as of this encounter
--- OUTSIDE RECORDS SUMMARY | 2025-08-17 14:40 | XMS_ITS | Encounter Summary ---
Author Organization [facility] Address [address] [place] [address] Phone Care Team Providers Care Information Clerk Brokerage Name Role Phone [facility] Primary Care Provider Encounter Details Date Type Department Care Team (Late st Contact Info) Description 07/17/2021 Procedure Pass OR Admitting Dept - Virtual Department [address] [place] [address] Social History Tobacco Use Types Packs/Day Years [...] EDT Appointment [facility] [place], [place] [address] [place] [address] Nick Clark MD [address], [address] [place] [address] 09/19/2025 12:00 PM EDT Routine [facility] [address] [place] [address] Nick Clark MD [address] [facility], [address] [place] [address] [email or web address] documented as of this encounter Visit Diagnoses Not on filedocumented in this encounter Additional Health Concerns Infection Onset Date Last Indicated Resolved Time CoV-Risk 07/10/2025 07/10/2025 07/21/2025 1:21 AM EDT documented as of this encounter Care Teams Information Clerk Brokerage Relationship Specialty Start Date End Date [facility] [address] [place] [address] PCP - General 07/14/21 documented as of this encounter Additional Source Comments The information contained in this document represents components of the legal health record. It is not the complete legal health record.[facility]
--- OUTSIDE RECORDS SUMMARY | 2025-08-17 14:40 | XMS_ITS | Encounter Summary ---
Author Organization [facility] Address [address] [place] [address] Phone Care Team Providers Care Press Tool Maker Name Role Phone [facility] Primary Care Provider Encounter Details Date Type Department Care Team (Late st Contact Info) Description 08/15/2025 Telephone [facility] [address] [place] [address] Nick Clark MD [address], [address] [place] [address] [email or web address] Social History Tobacco Use Types Packs/Day Years [...] EDT Appointment Johnny Richardson [facility] [place], OB [address] [place] [address] [place] [address] Nick Clark MD [address] [place] [address], [address] [address] [email or web address] 09/19/2025 12:00 PM EDT Routine Johnny [facility] [address] [place] [address] [address] [place] [address] Nick Clark MD [address] [place] [address], [address] [address] documented as of this encounter Visit Diagnoses Not on filedocumented in this encounter Care Teams Press Tool Maker Relationship Specialty Start Date End Date [facility] [address] [place] [address] PCP - General 07/14/21 documented as of this encounter Additional Source Comments The information contained in this document represents components of the legal health record. It is not the complete legal health record.[facility]
--- OUTSIDE RECORDS SUMMARY | 2025-08-17 14:40 | XMS_ITS | Encounter Summary ---
Author Organization [employer] Address [address] [place] [address] [address] [place] [address] Care Team Providers Care Heel Sander Rubber Name Role Phone Miriam Damon MD Primary Care Provide r Reason for Visit * Reason Comments Med Refill Encounter Details Date Type Department Care Team ([facility] st Contact Info) Description 10/16/2023 Refill [facility] [place] [address] [place] [address] Iman Longoria FNP Social History Tobacco Use [...] on filedocumented in this encounter Care Teams Heel Sander Rubber Relationship Specialty Start Date End Date Miriam Damon MD [address] [place] [phone] PCP - General Internal Medicine 09/08/23 documented as of this encounter
--- OUTSIDE RECORDS SUMMARY | 2025-08-17 14:40 | XMS_ITS | Encounter Summary ---
Author Organization [employer] Address [address] [place] [address] [address] [place] [address] Care Team Providers Care Meter Repairer Name Role Phone Lisa Bull [employer]ER Primary Care Provider Miriam Pena MD Primary Care Provide r Encounter Details Date Type Department Care Team (Late st Contact Info) Description 01/11/2023 Orders Only [facility] [address] [place] [address] Angélica Orellana LPN Social History Tobacco Use [...] 1:30 PM EDT) Progesterone, LC/MS <0.1 ng/mL [facility] Comment:Adult Female Referen ce Ranges for Progesterone: Pre-Menopausal Mid Follicular: < or = 0.3 ng/mL Pre-Menopausal Surge: 0.1-1.5 ng/mL Pre-Menopausal Mid Luteal: 6.7-22.2 ng/mL Postmenopausal Phase: < or = 0.2 ng/mLThis test was developed and its analytical performancecharacteristics have been determined by [facility]. It has not beencleared or approved by FDA. This assay has been validatedpursuant to the CLIA regulations and is used for clinicalpurposes.THIS TEST WAS PERFORMED AT:[employer] [id number] [place] [address]WPJSRROSALINE GALLEGO MD,PHD,MY 07/26/2023 1:30 PM EDT 07/26/2023 3:55 PM EDT Lisa Bull [facility] BLOOD ORDERABLES Final Result [facility] [address] [place] [phone] * Testosterone, Total, males (Adult), [place] (07/26/2023 1:30 PM EDT) Testosterone, Total 14 2 - 45 ng/dL [facility] Comment:For additional infor dell, please refer [email or web address].[employer].Indyarocks/faq/[email or web address](This link is being provided for informational/educational purposes only.)This test was developed and its analytical performancecharacteristics have been determined by [employer] [place]. It hasnot been cleared or approved by the U.S. Food and DrugAdministration. This assay has been validated pursuantto the CLIA regulations and is used for clinicalpurposes.THIS TEST WAS PERFORMED AT:[employer]/[id number] [place] [address]NHJYZTYRACHELE SHEETS MD,PHD 07/26/2023 1:30 PM EDT 07/26/2023 3:55 PM EDT Lisa Stinson [facility] LAB BLOOD ORDERABLES Final Result Performing Organization Address [facility] Co de Phone Number [facility] [address] [place] [phone] * HIV Ab/Ag ([facility]) (07/26/2023 1:30 PM EDT) [facility] HIV AB/AG Nonreactive Nonreactive [facility] Comment:HIV-1 p24 Ag and/or HIV-1/HIV-2 Ab not detected.A test result that is nonreactive does not exclude thepossibility of exposure to or infection with HIV-1 and/orHIV-2. Nonreactive results in this assay for individualswith prior exposure to HIV-1 and/or HIV-2 may be due toantigen and antibody levels that are below the limit ofdetection of this assay.[employer] HIV Ag/Ab Combo assay result andsupplemental assay results should be interpreted inconjunction with the patient's clinical presentation,history and other laboratory results. If the results areinconsistent with clinical evidence, additional testing issuggested to confirm the result. 07/26/2023 1:30 PM EDT 07/26/2023 3:55 PM EDT Lisa Shantell [facility] LAB BLOOD ORDERABLES Final Result Performing Organization Address [facility]/ZIP Co de Phone Number [facility] [address] [place] [phone] * hCG, Total, Quantitative (07/26/2023 1:30 PM EDT) HCG Quantitative <2 mIU/mL [facility] Comment:Weeks post LMP Appro ximate hCG(Last Menstrual Period) Range (mIU/ml)3 - 4 weeks 9 - 1304 - 5 weeks 75 - 2,6005 - 6 weeks 850 - 20,8006 - 7 weeks 4000 - 100,2007 - 12 weeks 11,500 - 289,30448 - 16 weeks 18,300 - 137,33202 - 29 weeks (2nd trimester) 1,400 - 53,57317 - 41 weeks (3rd trimester) 940 - [...] Lisa [facility] LAB BLOOD ORDERABLES Final Result [facility] [address] [place] [phone] documented in this encounter Visit Diagnoses Not on filedocumented in this encounter Care Teams Meter Repairer Relationship Specialty Start Date End Date Lisa Bull FNP PCP - General Family Medicine 09/22/21 09/07/23 Miriam Damon MD [address] [place] [phone] PCP - General Internal Medicine 09/08/23 documented as of this encounter
--- OUTSIDE RECORDS SUMMARY | 2025-08-17 14:40 | XMS_ITS | Encounter Summary ---
Author Organization [employer] Address [address] [place] [address] [address] [place] [address] Care Team Providers Care Typewriter Assembly And Parts Inspector Name Role Phone Miriam Damon MD Primary Care Provide r Reason for Visit * Reason Comments Med Refill Encounter Details Date Type Department Care Team ([facility] st Contact Info) Description 10/08/2023 Refill [facility] [place] [address] [place] [address] Iman Longoria FNP Social History Tobacco Use [...] on filedocumented in this encounter Care Teams Typewriter Assembly And Parts Inspector Relationship Specialty Start Date End Date Miriam Damon MD [address] [place] [phone] PCP - General Internal Medicine 09/08/23 documented as of this encounter
--- OUTSIDE RECORDS SUMMARY | 2025-08-17 14:40 | XMS_ITS | Encounter Summary ---
Author Organization [employer] Address [address] [place] [address] 7 [place] [address] Care Team Providers Care Business Operations Manager Name Role Phone Lisa Bull Primary Care Provider Miriam Pena MD Primary Care Provide r Encounter Details Date Type Department Care Team ([facility] Contact Info) Description 04/23/2023 Abstract [employer] [address] [place] [address] Lisa Bull FNP Social History Tobacco Use [...] on filedocumented in this encounter Care Teams Business Operations Manager Relationship Specialty Start Date End Date Lisa Bull FNP PCP - General Family Medicine 09/22/21 09/07/23 Miriam Damon MD [address] [place] [address] PCP - General Internal Medicine 09/08/23 documented as of this encounter
--- OUTSIDE RECORDS SUMMARY | 2025-08-17 14:40 | XMS_ITS | Clinical Summary ---
Author Organization [address] [place] [address] Address [address] [place] [address] Phone Care Team Providers Care Plasma Processor Name Role Phone Unavailable Primary Care Provider [...] Description 05/25/2025 2:30 PM EDT Office Visit [facility] [address] [place] [address] Francisco Vazquez MD MS (multiple sclerosis) ([facility] V24, CMS/[facility] V28) (Primary Dx) from Last 3 Months [...] Description 09/18/2025 2:00 PM EDT Office Visit [facility] [address] [place] [address] Blanka Root PA [address] [place] [address] Health Maintenance Due Date Last Done Comments [...] ID:Not on file Type:Not on file Address: [facility] ATTN:CLAIMS [address] [place] [phone] [place] [address]
--- OUTSIDE RECORDS SUMMARY | 2025-08-17 14:40 | XMS_ITS | Encounter Summary ---
Author Organization [employer] Address [address] [place] [address] 7 [place] [address] Care Team Providers Care Refrigeration System Installer Name Role Phone Lisa Bull MULTIMEDIA EDITOR Primary Care Provider Miriam Pena MD Primary Care Provide r Reason for Visit * Reason Onset Date Comments Reasonable Accommodation Request 11/12/2022 The pt called to check the status of a reasonable accommodation request from [facility]. I verified with the forms nurse, and informed the pt that the form was completed, and will be faxed to [facility] today. Lab Orders 11/12/2022 Patient states s he called to request a lab order because she is getting in [place] and leaving town on 11/24/2022. Please call patient at [phone]. Encounter Details Date Type Department Care Team ([facility] Contact Info) Description 11/12/2022 Telephone [facility] [address] [place] [address] Lisa Bull FNP Reasonable Accommodation Request (The pt called to check the status of a reasonable accommodation request from [facility]. I verified with the forms nurse, and informed the pt that the form was completed, and will be faxed to [facility] today. ); Lab Orders (Patient states she called to request a lab order because she is getting in [place] and leaving town on 11/24/2022. Please call patient at [phone]. ) Social History Tobacco Use Types Packs/Day [...] 8:06 AM EST Sally MUNOZI TC to [facility] follow up on alternative accommodations, left message [...] lab order because she is getting in [place] and leaving [facility] on [facility]2022. Please call patient at [phone]. * Telephone Encounter - Cooper Schilling - 11/16/2022 1:51 PM EST Tc from [place] with [facility] requesting a call back for the alternative solution . He statesthe washer and dryer are in a separate room and would like to know if a push cart would be a valid alternative accomodation for pt . Please contact Carlin at [phone] Ext [phone] documented in this encounter Plan of Treatment Not on file documented as of this encounter Visit Diagnoses Not on filedocumented in this encounter Care Teams Refrigeration System Installer Relationship Specialty Start Date End Date Lisa Bull FNP PCP - General Family Medicine 09/22/21 09/07/23 Miriam Damon MD [address] [place] [id number] PCP - General Internal Medicine 09/08/23 documented as of this encounter
--- OUTSIDE RECORDS SUMMARY | 2025-08-17 14:40 | XMS_ITS | Encounter Summary ---
Author Organization [employer] Address [address] [place] [address] 7t [place] [address] Care Team Providers Care Weblogic Developer Name Role Phone Miriam Damon MD Primary Care Provide r Reason for Visit * Reason Comments Med Refill Encounter Details Date Type Department Care Team ([facility] st Contact Info) Description 09/30/2023 Refill [facility] [place] [address] [place] [address] Iman Longoria FNP Social History Tobacco Use [...] on filedocumented in this encounter Care Teams Weblogic Developer Relationship Specialty Start Date End Date Miriam Damon MD [address] [place] [address] PCP - General Internal Medicine 09/08/23 documented as of this encounter
--- OUTSIDE RECORDS SUMMARY | 2025-08-17 14:40 | XMS_ITS | Clinical Summary ---
Author Organization [facility] Address [address] [place] [address] Phone Care Team Providers Care Floor Tech Name Role Phone [facility] Primary Care Provider Allergies No known active allergies Medications ALBUTEROL INHL Inhale into the lungs as needed. Active fluticasone propionate (FLONASE) 50 mcg/actuation nasal spray 2 sprays as needed. 04/06/20 23 Active enoxaparin (LOVENOX) 30 mg/0.3 mL Syrg subcutaneous syringe Inject 0.3 mL (30 mg total) under the skin daily for 14 days. 4.2 mL 05/03/20 25 Active vitamins with ferrous fum-FA 27 mg iron- 800 mcg Take 1 tablet by mouth. Active progesterone 50 mg/mL injection Inject 50mg (1ml) intramuscularly once daily as directed 03/31/20 25 025 Discontin ued(No longer taking) progesterone (PROMETRIUM) 200 mg capsule INSERT 1 CAPSULE VAGINALLY DOS BISI AL Daniel A SEG N LO INDICADO 04/16/20 25 025 Discontin ued(No longer taking) estradioL (ESTRACE) 2 MG tablet Take 2 mg by mouth 2 (two) times a day. 025 Discontin ued(No longer taking) Active Problems Problem Noted Date Diagnosed Date History of 05/16/2025 Overview (05/16/2025): Requests RCS and TL resulting from in vitro fertilization in first trimester 05/16/2025 History of delivery 05/03/2025 Overview (05/03/2025): Date of surgery: [place] Reason for prior : failure to progress [...] schedule MD consult at 35-37 weeks Calculator: [email or web address] [email or web address]/[email or web address]--[email or web address] culat or Encounter for supervision of high-risk [...] of gestational hypertension 05/03/2025 Overview (05/03/2025): Fransisca TIPTON labs, P/C ratio - done by IVF [...] 28-32 weeks to discuss mode of delivery (estate planning counselor on multiple possibilities for delivery even with vtx/vtx, including one and one CS)--> patient requests CS for delivery o Mario: 38wk delivery o Stanley/Di: 37wk delivery Elevated testosterone level in female 09/17/2021 Overview (09/17/2021): Free testosterone 2.6 (upper limit normal) and clitoromegaly. Has appointment with RE at [facility] in November Assessment & Plan (09/17/2021 4:56 [...] MD Pursuing IVF care with clinic in [place]. SHG with femvue 10/27/2024 with normal cavity [...] 4:13 PM EDT): SHG done 07/29/23 at [facility] Showed retroverted uterus, echogenic focus on [...] Team Description 08/15/2025 4:30 PM EDT Routine [facility] [address] [place] [address] [place] [address] Nick Clark MD GA: 24w4d 08/15/2025 Telephone [facility] [address] [place] [address] Nick Clark MD 07/17/2025 2:10 PM EDT Routine [facility] [address] [place] [address] [place] [address] Nick Clark MD GA: 20w3d 07/16/2025 8:00 AM EDT - 07/16/2025 11:59 PM EDT Hospital Encounter [facility], [address] [address] Nick Clark MD Karlie Stevens Discharge Disposition: Home or Self Care 07/10/2025 10:40 PM EDT Ancillary Procedure [address] [address] Jose Cosme MD 07/10/2025 10:14 PM EDT - 07/10/2025 11:21 PM EDT Emergency [facility] [address] [place] [address] Jose Cosme MD Discharge Disposition: Home or Self Care 06/13/2025 10:40 AM EDT Routine [facility] [address] [place] [address] Nick Clark MD GA: 15w4d 06/13/2025 Telephone [facility] [address] [place] [address] Nick Clark MD Appointment 05/23/2025 Telephone [facility] [address] [place] [address] Germán Boykin, RN Test Results (Myriad) from Last 3 Months Family History Medical [...] EDT Appointment [facility] [place], [place] [address] [place] [address] [place], [place] [address] Nick Clark MD [address] [place] [address], [address] [address] 09/19/2025 12:00 PM EDT Routine [facility] [address] [place] [address] [place] [address] Nick Clark MD [address] [place] [address], [address] [place] [id number] [email or web address] Health Maintenance Due Date Last Done Comments [...] Routine 07/16/2025 9:21 AM EDT Twin , dichorionic/diamniot ic, first trimester Encounter for supervision of high-risk with multigravida of advanced maternal age COVID PANDEMIC RESPIRATORY VIRAL ORDER (PRO) STAT 07/10/2025 10:58 PM EDT US BEDSIDE Routine 07/10/2025 10:39 PM EDT LIPASE STAT 07/10/2025 7:04 PM EDT LFTS (HEPATIC PANEL) STAT 07/10/2025 7:04 PM EDT HCG, SERUM QUALITATIVE STAT 07/10/2025 7:04 PM EDT BASIC METABOLIC PANEL STAT 07/10/2025 7:04 PM EDT CBC AND DIFFERENTIAL STAT 07/10/2025 7:04 PM EDT URINE SEDIMENT STAT 07/10/2025 7:01 PM EDT URINALYSIS W/REFLEX URINE CULTURE STAT 07/10/2025 7:01 PM EDT HEPATITIS C ANTIBODY, QUALITATIVE Routine 05/16/2025 9:55 AM EDT Encounter for supervision of high-risk with multigravida of advanced maternal age PAP TEST Routine 08/05/2023 12:00 AM EDT [...] for interval growth. us Nick Clark MD [facility] US OBSTETRIC Final Result * COVID Pandemic Respiratory Viral Order (PRO) (07/10/2025 10:58 PM EDT) Test Ordered Rapid COVID has been ordered [facility] Specimen Source/Descri ption NASL [facility] SARS-CoV 2 (COVID-19) PCR Not Detected Not Detected [facility] Other (Nasopharyngeal swab) 07/10/2025 10:58 PM EDT 07/10/2025 11:22 PM EDT us Jose Cosme MD BODY FLUIDS AND STOOLS O RDERABLES Final Result [facility] [address] [place] [address] * US BEDSIDE (07/10/2025 10:39 PM EDT) [...] negative Images: Images Saved: Yes Accession Number: [id number] Joes Cosme MD IMG POINT OF CARE EXAMS Final Result * (ABNORMAL) HCG, serum qualitative (07/10/2025 7:04 PM EDT) HCG, QUALITATIVE Positive( A) Negative IU/L [facility] Blood 07/10/2025 7:04 PM EDT 07/10/2025 7:31 PM EDT Alfa Buchanan MD LAB BLOOD ORDERABLES Final Resu lt Performing Organization Address City/State/[facility] Co de Phone Number [address] [address] * (ABNORMAL) LFTs (hepatic panel) (07/10/2025 7:04 PM EDT) ALKALINE PHOSPHATASE 54 39 - 117 U/L [facility] TOTAL BILIRUBIN <0.2 0.0 - 1.2 mg/dL [facility] DIRECT BILIRUBIN <0.1 0.0 - 0.2 mg/dL [facility] Bilirubin (Indirect) NOT CALCULATED 0 - 1.5 mg/dL [facility] AST 17 0 - 37 U/L [facility] ALT 13 0 - 40 U/L [facility] TOTAL PROTEIN 6.6 6.5 - 8.0 g/dL [facility] ALBUMIN 3.5(L) 3.9 - 4.8 g/dL [facility] GLOBULIN 3.1 1 - 4.8 g/dL [facility] A/G Ratio 1.13 1.00 - 4.80 RATIO [facility] Blood 07/10/2025 7:04 PM EDT 07/10/2025 7:31 PM EDT us Alfa Buchanan MD LAB BLOOD ORDERABLES Final Resu lt [address] [address] * (ABNORMAL) CBC and differential (07/10/2025 7:04 PM EDT) WBC 10.20 4.00 - 11.00 K/uL [facility] RBC 3.82(L) 4.00 - 5.20 M/uL [facility] HGB 11.5(L) 12.0 - 16.0 g/dL [facility] HCT 35.3(L) 36.0 - 46.0 % [facility] PLT 226 150 - 450 K/uL [facility] MCV 92.4 80.0 - 100.0 fL [facility] MCH 30.1 27.0 - 31.0 pg [facility] MCHC 32.6 32.0 - 36.0 g/dL [facility] RDW 14.3 11.5 - 14.5 % [facility] MPV 11.8 8.4 - 12.0 fL [facility] NRBC 0.00 0.00 /100 WBCs [facility] ABSOLUTE NRBC 0.00 0.00 K/uL [facility] DIFF METHOD Auto [facility] NEUTS 62.3 48.0 - 76.0 % [facility] LYMPHS 26.7 18.0 - 41.0 % [facility] MONOS 8.0 4.0 - 11.0 % [facility] EOS 1.5 0.0 - 5.0 % [facility] BASOS 0.4 0.0 - 1.5 % [facility] Granulocytes, immature (%) 1.1(H) 0.0 - 0.9 % [facility] ABSOLUTE NEUTS 6.36 1.92 - 7.60 K/uL [facility] ABSOLUTE LYMPHS 2.72 0.72 - 4.10 K/uL [facility] ABSOLUTE MONOS 0.82 0.16 - 1.10 K/uL [facility] ABSOLUTE EOS 0.15 0.00 - 0.50 K/uL [facility] ABSOLUTE BASOS 0.04 0.00 - 0.15 K/uL [facility] Granulocytes, immature 0.11(H) 0.00 - 0.09 K/uL [facility] Blood 07/10/2025 7:04 PM EDT 07/10/2025 7:31 PM EDT Alfa Buchanan MD LAB BLOOD ORDERABLES Final Resu lt Performing Organization Address City/[facility]/ZIP Co de Phone Number [address] [address] * Lipase (07/10/2025 7:04 PM EDT) Pathologist [facility] LIPASE 28 16 - 63 U/L [facility] Blood 07/10/2025 7:04 PM EDT 07/10/2025 7:31 PM EDT Alfa Buchanan MD LAB BLOOD ORDERABLES Final Resu lt Performing Organization Address City/[facility]/ZIP Co de Phone Number [address] [address] * (ABNORMAL) Basic metabolic panel (07/10/2025 7:04 PM EDT) SODIUM 137 133 - 146 mmol/L [facility] CHLORIDE 105 96 - 108 mmol/L [facility] POTASSIUM 3.9 3.3 - 5.1 mmol/L [facility] CO2 20(L) 21 - 35 mmol/L [facility] BUN 10 6 - 19 mg/dL [facility] CREATININE 0.50 0.5 - 1.5 mg/dL [facility] GLUCOSE 80 70 - 99 mg/dL [facility] CALCIUM 9.1 8.4 - 10.3 mg/dL [facility] EGFR >120 >59 mL/min/1.7 3m2 [facility] Comment:Estimated glomerular filtration rate calculated using the CKD-EPI refit equation. ANION GAP 16 10 - 20 mmol/L [facility] Blood 07/10/2025 7:04 PM EDT 07/10/2025 7:31 PM EDT Alfa Buchanan MD LAB BLOOD ORDERABLES Final Resu lt Performing Organization Address [facility]/ZIP Co de Phone Number [address] [address] * (ABNORMAL) Urinalysis w/reflex Urine Culture (07/10/2025 7:01 PM EDT) COLOR Yellow Yellow [facility] CLARITY Clear [facility] GLUCOSE Negative Negative [facility] BILI Negative Negative [facility] KETONES Negative Negative [facility] SPECIFIC GRAVITY 1.015 1.005 - 1.030 [facility] BLOOD Negative Negative [facility] PH 6.5 5.0 - 8.0 [facility] Protein-UA Negative Negative [facility] NITRITE Negative Negative [facility] Leukocyte esterase, ur Trace(A) Negative [facility] Urine (Urine) 07/10/2025 7:0 1 PM EDT 07/10/2025 7:30 PM EDT Alfa Buchanan MD URINE ORDERABLES Final Result Performing Organization Address [facility]/ZIP Co de Phone Number [address] [address] * (ABNORMAL) Urine sediment (07/10/2025 7:01 PM EDT) WBC 5-10(A) NONE SEEN /hpf [facility] RBC 3-5(A) NONE SEEN /hpf [facility] URINE EPITHELIAL 21-49(A) NONE SEEN [facility] MUCUS Trace(A) NONE SEEN /hpf [facility] BACTERIA 2+(A) NONE SEEN /hpf [facility] 07/10/2025 7:01 PM EDT 07/10/2025 7:30 PM EDT us Alfa Buchanan MD URINE ORDERABLES Final Result Performing Organization Address [facility]/ZIP Co de Phone Number [address] [address] * Hepatitis C antibody, qualitative (05/16/2025 9:55 AM EDT) HCV NON-REACTIV E NON-REACTI VE [facility] Blood 05/16/2025 9:55 AM EDT 05/16/2025 10:05 AM EDT Petrona Mcghee CNM LAB BLOOD ORDERABLES Final Resul t Performing Organization Address [facility] Co de Phone Number [address] [address] * Pap Test (08/05/2023 12:00 AM EDT) 08/05/2023 08/06/2023 8:4 7 AM EDT Narrative SEE NARRATIVE - 08/10/2023 1:04 PM EDT [address] [address] Hospice Social Worker: Mae Zavala MD [employer] Cytology Report FINAL DIAGNOSIS A. PAP SMEAR [...] 59, 66, 68) Note: Testing performed by [employer] HR-HPV analysis. Clinical correlation is advised. This HPV test was performed at [facility], [address] [place] [address]. This test has been FDA approved for [facility] cervical cytology specimens. The accuracy and precision of this test for all other specimen sources has been verified in the Cytopathology Laboratory of the [facility] and has not been cleared or approved by the U.S. Food and Drug Administration. Clinical correlation is advised. CLINICAL HISTORY Date of Last Menstrual Period: 07-23-2023 Other Clinical Conditions: Screening Pap SPECIMEN SOURCE A: PAP SMEAR (SUREPATH) CE Patient Name: KATIE SOLORIO : 1985 (Age: 37) Sex: F Institution: [facility] Location: [facility] Date of Collection: 08/05/2023 Date of Reported: 08/10/2023 13:04 Results to: Paige Bolden MD Paige Bolden MD CYTOLOGY ORDERABLES Final Result SEE NARRATIVE from Last 3 Months or Most Recently Relevant to Health Maintenance Insurance [address] [place], [place] [address]O [facility] [address] [place], [place] [address]S [facility] Care Teams Floor Tech Relationship Specialty Start Date End Date [facility] [address] [place] [address] PCP - General 07/14/21 Additional Source Comments The information contained in this document represents components of the legal health record. It is not the complete legal health record.[facility]
--- OUTSIDE RECORDS SUMMARY | 2025-08-17 14:40 | XMS_ITS | Clinical Summary ---
Author Organization [employer] Address [address] [place] [address] 7 [place] [address] Care Team Providers Care Jacquard Twine Polisher Operator Name Role Phone Miriam Damon MD Primary Care Provide r Allergies No known active allergies Medications sodium chloride (Reagan Nasal [place]) 0.65 % nasal sprayIndications:Vi ral syndrome 1-2 [...] 04/06/20 23 Active Diclofenac Sodium 1 % gelIndications:Customer Development Manager ann bilateral thoracic back pain Apply 2 [...] AREN TABLETA TODOS [place] 90 tablet 1 10/04/20 23 Active famotidine [...] 03/08/2023 Overview (09/01/2023): [place]: care managed by [facility]. Plans for adjusted medication Last appt 09/16/22 MRI brain with and w/o contrast ordered Aug 2022 Assessment & Plan (09/20/2024 4:35 PM EDT): Stable Continue to follow with specialist Assessment & Plan (07/26/2024 11:52 AM EDT): Being follow by neurology [facility] Assessment & Plan (08/31/2023 2:04 PM [...] and clitoromegaly. Has appointment with RE at [facility] in November Last Assessment & Plan: [...] 2020 Reports she is starting IVF at [facility] in [facility]. They have payment plans Assessment & Plan [...] Description 08/16/2025 2:45 PM EDT Office Visit [facility] [address] [place] [phone] Miriam Damon MD Encounter for preventive care (Primary Dx); Mild persistent asthma without complication; Dietary counseling; Exercise counseling; 25 weeks gestation of ; Heartburn; Slow transit constipation 08/16/2025 Travel 08/16/2025 Telephone [facility] [address] [place] [address] Miriam Damon MD Chart Prep 08/09/2025 Travel 08/08/2025 Patient Outreach [facility] [address] [place] [phone] Miriam Damon MD Pre-visit Planning (SDOH screening negative and tobacco screening negative) 06/25/2025 10:20 AM EDT Office Visit [facility] [address] [place] [address] Layla Restrepo MD Strep pharyngitis 06/25/2025 Travel [...] Rapid COVID Ag (06/25/2025 9:17 AM EDT) [facility] Rapid COVID Ag Negative Swab 06/25/2025 9:17 AM EDT us Layla Restrepo MD POINT OF CARE TEST ENTER/EDIT OR DERABLES Final Result * (ABNORMAL) POCT rapid strep A manually resulted (06/25/2025 9:17 AM EDT) [facility] Rapid Strep A Screen Positive( A) Negative, None Detected Swab 06/25/2025 9:17 AM EDT us Layla Restrepo MD POINT OF CARE TEST ENTER/EDIT OR DERABLES Final Result * Lipid Panel, Standard (12/16/2023 7:20 AM EST) [facility] Triglycerides 83 <150 mg/dL [facility] Comment:Desirable Triglyceri de: less than 150 mg/dLBorderline High Triglyceride 150-199 mg/dLHigh Triglyceride: 200-499 mg/dLVery High Triglyceride: greater than or equal to 5OO mg/dL Cholesterol 167 <200 mg/dL [facility] Comment:Desirable Cholestero l: less than 200 mg/dLBorderline High Cholesterol: 200-239 mg/dLHigh Cholesterol: greater than 239 mg/dL LDL Cholesterol Calculated 97 <100 mg/dL [facility] Comment:Desirable LDL: less than 100 mg/dLNear Optimal/Above Optimal LDL: 110- 129 mg/dLBorderline High LDL: 130-159 mg/dLHigh LDL: 160-189 mg/dLVery High LDL: greater than or equal to 190 mg/dL HDL Cholesterol 54 >40 mg/dL [facility] Comment:Desirable HDL: great er than 40 mg/dL Note: This HDL assay may give artificially low results in patients with liver disease. 12/16/2023 7:20 AM EST 12/16/2023 7:22 AM EST Generic External Data Provider LAB BLOOD ORDERAB LES Final Result [facility] [address] [place] [phone] * HM PAP/HPV (08/05/2023) Pap Smear 1. NILM 1. NILM HPV Not Detected Undetected, Indeterminat e, Quantitative , Not Detected Historical Provider HEALTH MAINTENANCE Final Result * HIV Ab/Ag ([facility]) (07/26/2023 1:30 PM EDT) HIV AB/AG Nonreactive Nonreactive [facility] Comment:HIV-1 p24 Ag and/or HIV-1/HIV-2 Ab not detected.A test result that is nonreactive does not exclude thepossibility of exposure to or infection with HIV-1 and/orHIV-2. Nonreactive results in this assay for individualswith prior exposure to HIV-1 and/or HIV-2 may be due toantigen and antibody levels that are below the limit ofdetection of this assay.[facility] HIV Ag/Ab Combo assay result andsupplemental assay results should be interpreted inconjunction with the patient's clinical presentation,history and other laboratory results. If the results areinconsistent with clinical evidence, additional testing issuggested to confirm the result. 07/26/2023 1:30 PM EDT 07/26/2023 3:55 PM EDT us Lisa Bull TINNER HELPER LAB BLOOD ORDERABLES Final Result Performing Organization Address [facility] Co de Phone Number [facility] [address] [place] [address] [phone] * Hepatitis Panel, General (07/26/2023 1:30 PM EDT) Hepatitis A IgM Nonreactive Nonreactive [facility] Comment:IgM antibodies to GARCIA V not detected; does not exclude earlyacute or recovered HAV infection. ~Hepatitis B Surface Antibody REACTIVE Nonreactive [facility] Comment:REACTIVE: > 11.99 mI U/mL Hepatitis B Core Antibody Nonreactive Nonreactive [facility] Hepatitis C Antibody Nonreactive Nonreactive [facility] Comment:Antibodies to HCV no t detected; does not exclude early acuteHCV infection. Hepatitis B Surface Ag Negative Negative [facility] Blood 07/26/2023 1:30 PM EDT 07/26/2023 3:55 PM EDT Lisa Bull TINNER HELPER LAB BLOOD ORDERABLES Final Result Performing Organization Address [facility] Co de Phone Number [facility] [address] [place] [phone] from Last 3 Months or Most Recently Relevant to Health Maintenance Insurance [facility] , [address] [place] [address] Care Teams Jacquard Twine Polisher Operator Relationship Specialty Start Date End Date Miriam Damon MD [address] [place] [phone] PCP - General Internal Medicine 09/08/23
--- OUTSIDE RECORDS SUMMARY | 2025-08-17 14:40 | XMS_ITS | Encounter Summary ---
Author Organization [employer] Address [address] [place] [address] 7 [place] [address] Care Team Providers Care Airport Operations Specialist Name Role Phone Miriam Damon MD Primary Care Provide r Reason for Visit * Reason Onset Date Comments Chart Prep 08/16/2025 Encounter Details Date Type Department Care Team ([facility] st Contact Info) Description 08/16/[address] [facility] [address] [place], [place] [phone] Miriam Damon MD [address] [place], [place] [phone] Chart Prep Social History Tobacco Use Types [...] documented as of this encounter Care Teams Airport Operations Specialist Relationship Specialty Start Date End Date Miriam Damon MD [address] [place] [address] PCP - General Internal Medicine 09/08/23 documented as of this encounter
--- OUTSIDE RECORDS SUMMARY | 2025-08-17 14:40 | XMS_ITS | Clinical Summary ---
Author Organization [facility] Address [address] [place] [address] Care Team Providers Care Ocean Transportation Intermediary Name Role Phone Unavailable Primary Care Provider Unavailabl e Medications Medication Sig Dispensed Refills Start Date End Date Status Eubhtvz-Rbmntvxaqjlqr-Fz ffeine (EXCEDRIN PO) Take by mouth. 0 Active predniSONE (DELTASONE) 5 mg tablet 0 07/17/2024 Active ondansetron (ZOFRAN-ODT) 4 MG disintegrating tablet TAKE ONE (1) TABLET UNDER THE TONGUE EVERY 8 HRS NEEDED FOR NAUSEA 0 07/31/2024 Active Prenat MV-Min w/Cl-Sxpvic-SJF ( COMPLETE PO) Take by mouth. 0 [...]
--- OUTSIDE RECORDS SUMMARY | 2025-08-17 14:40 | XMS_ITS | Encounter Summary ---
Author Organization [facility] Address [address] [place] [address] Phone Care Team Providers Care Starch Dumper Name Role Phone Tano Ace MD Primary Care Provider [facility] Provider Encounter Details Date Type Department Care Team (Latest Contact Info) Description 11/01/2017 Ancillary Orders [facility] [address] [place] [address] [place] [address] Willy Robison, DO [address] [place] [phone] Chest pain, unspecified type; Palpitation Social History [...] EDT Appointment [facility] [place], OB [address] [place] [address] [place] [address] Nick Clark MD [address] [facility], [address] [place] [address] 09/19/2025 12:00 PM EDT Routine [facility] [place] [address] Nick Clark MD [address] [facility], [address] [address] [email or web address] documented as of this encounter Results * [...] documented as of this encounter Care Teams Starch Dumper Relationship Specialty Start Date End Date Tano Ace MD [address] [place] [phone] PCP - General Internal Medicine 04/23/21 07/13/21 [facility] [address] [place] [address] PCP - General 07/14/21 documented as of this encounter Additional Source Comments The information contained in this document represents components of the legal health record. It is not the complete legal health record.[facility]
--- OUTSIDE RECORDS SUMMARY | 2025-08-17 14:40 | XMS_ITS | Encounter Summary ---
Author Organization [employer] Address [address] [place] [address] 7t [place] [address] Care Team Providers Care Belt Turner Name Role Phone Miriam Damon MD Primary [...] your housing situation today? I have leahcecil kenyn 08/08/[address] you li [...] the past 12 months, has t he Native, gas, oil or water company threatened to [...] documented as of this encounter Care Teams Belt Turner Relationship Specialty Start Date End Date Miriam Damon MD [address] [place] [phone] PCP - General Internal Medicine 09/08/23 documented as of this encounter
--- OUTSIDE RECORDS SUMMARY | 2025-08-17 14:40 | XMS_ITS | Encounter Summary ---
Author Organization [facility] Address [address] [place] [phone] Phone Care Team Providers Care Roundsman Name Role Phone [facility], [facility] Primary Care Provider Encounter Details Date Type Department Care Team (Late st Contact Info) Description 10/12/2023 Procedure Pass [place] Admitting Dept - Virtual Department [address] [place] [address] Social History Tobacco Use Types Packs/Day Years [...] 10/12/2023 8:35 AM Annie Galvan RN * [place] Suicide Severity Rating Scale (Screener/Recent Self-Report) Question Answer Date of Assessment Author 2. Non-Specific Active Suici phillip Thoughts (Past 1 Month) No 10/12/2023 8:35 AM Amanda Rapp RN documented as of this encounter Plan of Treatment Upcoming Encounters Date Type Department Care Team (Late st Contact Info) Description 09/19/2025 11:00 AM EDT Appointment [facility] [address] [place] [address] Nick Clark MD [address] [place] [address] 09/19/2025 12:00 PM EDT Routine [facility] [address] [place] [address] [place] [address] Nick Clark MD [address] [place] [address] documented as of this encounter Visit Diagnoses Not on filedocumented in this encounter Additional Health Concerns Infection Onset Date Last Indicated Resolved Time CoV-Risk 07/10/2025 07/10/2025 07/21/2025 1:21 AM EDT documented as of this encounter Care Teams Roundsman Relationship Specialty Start Date End Date [facility] [address] [place] [address] PCP - General 07/14/21 documented as of this encounter Additional Source Comments The information contained in this document represents components of the legal health record. It is not the complete legal health record.[facility]
--- OUTSIDE RECORDS SUMMARY | 2025-08-17 14:40 | XMS_ITS | Encounter Summary ---
Author Organization [facility] Address [address] [place] [phone] Phone Care Team Providers Care Sub Plant Manager Name Role Phone [facility] Primary Care Provider Encounter Details Date Type Department Care Team (Late st Contact Info) Description 06/10/2023 Transcribe Orders [facility] [address] [place] [address] [facility], [address] [place], [place] [phone] Social History Tobacco Use Types Packs/Day Years [...] EDT Appointment [facility] [place], OB [address] [place] [address] [place] [address] Nick Clark MD [address] [place] [address], [address] [address] 09/19/2025 12:00 PM EDT Routine [facility] [address] [place] [address] [place] [address] Nick Clark MD [address] [place] [phone] documented as of this encounter Visit Diagnoses Not on filedocumented in this encounter Additional Health Concerns Infection Onset Date Last Indicated Resolved Time CoV-Risk 07/10/2025 07/10/2025 07/21/2025 1:21 AM EDT documented as of this encounter Care Teams Sub Plant Manager Relationship Specialty Start Date End Date [facility] [address] [place] [address] PCP - General 07/14/21 documented as of this encounter Additional Source Comments The information contained in this document represents components of the legal health record. It is not the complete legal health record.[facility]
[2025-08-21 13:18] LABS: TS Negative Control Passed; TS Panel A 3; TS Panel B 0; TS Positive Control Passed; TSpotTB Negative (Negative)
== END 2025-08-17 14:35 | disposition home or self-care (01) ==
LOC: HO.HHCL 14:34
PROVIDERS: PCP Internal Medicine; Visit Provider Internal Medicine
DX: Z00.00 Encounter for general adult medical examination without abnormal findings (principal); Z11.1 Encounter for screening for respiratory tuberculosis
CPT/HCPCS: 36415; 86481